=== PATIENT | female | born 1970 | race Caucasian/White ===

== ENCOUNTER 2022-02-24 07:54 | Emergency (ER) | payer OTHER, SELFPAY ==
[2022-02-24 08:06] VITALS: BP 127/86; PULSE 86; RESP 22; TEMP 37; O2SAT 97; BMI 34.8
--- NOTE | 2022-02-24 08:27 | ED.GENADULT ---
HPI - General Adult General Time Seen by Provider: 08:26 Date Seen: 02/24/22 Chief complaint: Shortness of Breath/Dyspnea Stated complaint: +covid Time Seen by Provider: 02/24/22 08:14 Source: patient History of Present Illness HPI narrative: This 51-year-old female comes in with a positive test for COVID that she performed at home. She states that she is having some congestion and cough and feels like it is starting to settle down into her chest. She does not report shortness of breath specifically. She does have a history of sarcoidosis and comes in early on in this condition wanting to avoid any complication that may be forthcoming. She does not report any fevers. Related Data Home Medications Medication Instructions Recorded Confirmed omeprazole 40 mg capsule,delayed mg 02/24/22 release venlafaxine 75 mg capsule,extended mg PO 02/24/22 release 24 hr Previous Rx's Medication Instructions Recorded methylprednisolone 4 mg tablets in 4 mg PO DAILY #21 ea 02/24/22 a dose pack (Medrol (Michael)) Allergies Allergy/AdvReac Type Severity Reaction Status Date / Time Penicillins Allergy Verified 02/24/22 08:12 Review of Systems Status of ROS: Reports: 10 or more systems reviewed and unremarkable except as noted in History and below Narrative: Constitutional: No fevers, no weight gain or loss. Eyes: No discharge. No vision changes. HENT: No congestion, no sore throat, no ear pain. Cardiovascular: No chest pain, no palpitations. Respiratory: Coughing with congestion. No specific shortness of breath. No wheezes. Gastrointestinal: No abdominal pain, no vomiting, no diarrhea. Genitourinary: No dysuria, no hematuria. Musculoskeletal: Normal range of motion. Skin: No rashes, no pruritis. Neurological: No dizziness, weakness, sensory change, speech change. Endo/Heme/Allergies: No bruising or bleeding. No polydipsia. Pysch: no suicidality, no anxiety, no insomnia. All other systems reviewed and are negative. [facility] Medical History (Updated 02/24/22 @ 09:00 by Thanh Ruiz MD) GERD (gastroesophageal reflux disease) Surgical History (Updated 02/24/22 @ 08:15 by Leyda Gilbert RN) History of appendectomy Social History Smoking Status: Never smoker Do you use any of these nicotine containing products: None Second hand tobacco smoke exposure: No How often do you have a drink containing alcohol: 2-4 times a month How many standard drinks containing alcohol do you have on a typical day: 1 or 2 How often do you have six or more drinks on one occasion: Monthly AUDIT-C Alcohol total score: 4 Non-prescribed substance use: denies use service: No Exam Narrative: Exam Narrative: Constitutional: Well-developed, well-nourished, no acute distress. HEENT: Normocephalic, atraumatic. Neck: Normal range of motion. Nontender. Supple. Heart: Regular. No murmurs. Normal rate. Intact distal pulses. Lungs: Clear to auscultation. No chest discomfort. No wheezes, rhonchi, or rales. Abdomen: Normal bowel sounds. Nontender. No rebound tenderness. Genitalia: Deferred. Back: No midline tenderness. Normal range of motion. Extremities: Normal range of motion. No injury. Skin: Intact. No rash. Warm. No erythema or pallor. Neurologic: No altered sensation. No weakness. Alert and oriented. Psychiatric: No suicidality. No anxiety or depression. No insomnia. Nursing notes and vitals signs are reviewed. Const: Vital Signs, click to edit/add: Vital Signs - 24 hr 02/24/22 08:06 Temperature 98.6 F Pulse Rate [Left P ulse Oximeter] 86 Respiratory Rate 22 Blood Pressure [Ri ght Upper Arm] 127/86 Pulse Oximetry 97 Course Vital Signs Vital signs: Initial Vital Signs Temperature 98.6 F 02/24/22 08:06 Temperature Source Temporal Artery Scan 02/24/22 08:06 Pulse Rate 86 02/24/22 08:06 Pulse Rhythm 02/24/22 08:06 Pulse Strength 2+ Slightly Diminished 02/24/22 08:06 Respiratory Rate 22 02/24/22 08:06 Blood Pressure 127/86 02/24/22 08:06 Blood Pressure Mean 99 02/24/22 08:06 Blood Pressure Position Supine 02/24/22 08:06 Pulse Oximetry 97 02/24/22 08:06 Oxygen Delivery Method 02/24/22 08:06 Vital Signs Temperature 98.6 F 07/02/22 08:06 Pulse Rate 86 02/24/22 08:06 Respiratory Rate 22 02/24/22 08:06 Blood Pressure 127/86 02/24/22 08:06 Pulse Oximetry 97 02/24/22 08:06 Temperature 98.6 F 02/24/22 08:06 Pulse Rate 86 02/24/22 08:06 Respiratory Rate 22 02/24/22 08:06 Blood Pressure 127/86 02/24/22 08:06 Pulse Oximetry 97 02/24/22 08:06 Medical Decision Making MDM Narrative Medical decision making narrative: This patient comes in with concern about a positive COVID test with the background of sarcoidosis. She arrives with normal vital signs. I did discuss lab and imaging options with the patient. These were declined in a process of shared decision making. The patient did receive an oral dose of dexamethasone 10 mg. I did also prescribe a Medrol Dosepak and some tablets of Tylenol 3. The patient understands that she should return if becoming short of breath. Discharge Plan Discharge Clinical Impression: COVID-19, Sarcoidosis Patient Disposition: Home, Self-Care Condition: Stable Instructions: COVID-19 (Coronavirus Disease 2019) (ED) Activity Level: Activity as Tolerated Prescriptions: New methylprednisolone [Medrol (Michael)] 4 mg tablets,dose pack 4 mg PO DAILY Qty: 21 0RF No Action venlafaxine 75 mg capsule,extended release 24hr PO 0RF Label Comments: TAKE 1 CAPSULE BY MOUTH EVERY DAY omeprazole 40 mg capsule,delayed release(DR/EC) 0RF Label Comments: TAKE 1 CAPSULE BY MOUTH DAILY. Follow Up/Referrals: Christophe Dye PA-C [Primary Care Provider] - Stand Alone Forms: [employer] Info Instructions
[2022-02-24] MEDS: dexAMETHasone 10 MG/ML inj IV (08:46)
[2022-02-24 09:05] LABS: PCR FLU A NEGATIVE (Negative); PCR FLU B NEGATIVE (Negative); SARS PCR* POSITIVE (Negative)
[2022-02-24 09:14] VITALS: BP 130/81; PULSE 83; RESP 22; TEMP 36.9; O2SAT 97
[2022-02-24 09:27] VITALS: BP 130/81; PULSE 83; RESP 22; TEMP 36.9
--- NOTE | 2022-02-24 10:04 | ED.NURSE ---
pt called and notified of covid/flu results
== END 2022-02-24 09:20 | disposition home or self-care (01) ==
PROVIDERS: Emergency Provider Emergency Medicine Emergency Medical Services; PCP Physician Assistant Medical
DX: U07.1 COVID-19 (principal); D86.9 Sarcoidosis, unspecified
CPT/HCPCS: 87502; 87635; 99283; 99284; J1100

== ENCOUNTER 2022-09-09 05:26 | Emergency (ER) | payer OTHER, SELFPAY ==
[2022-09-09 05:33] VITALS: BP 127/84; PULSE 103; RESP 18; TEMP 36.4; O2SAT 99
--- NOTE | 2022-09-09 05:57 | ED.GENADULT ---
HPI - General Adult General Chief complaint: Diarrhea Stated complaint: Diarrhea Time Seen by Provider: 09/09/22 05:40 History of Present Illness HPI narrative: 51-year-old woman presenting to the emergency department with complaint of colicky abdominal discomfort and bloating. This feels rather full. Has had some gastrointestinal symptoms over the last 2 weeks. Seen in clinic and initiated on a course of prednisone that seems unclear why however when I review records she had presented with some complaint of chest tightness around this time man with history of underlying sarcoidosis, I believe this was white prednisone was initiated. Sirena denies any respiratory symptoms. Says that she has been diagnosed with what sounds like thought of viral stomach bug. Early on more of a vomiting and diarrheal illness which then seemed to resolve. This is now 3rd day of recurrent diarrheal symptoms. She had taken Imodium and seemed to get stopped up and bloated and then restarted with black stools presumably from Pepto-Bismol. 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 Has not had a fever. No hematochezia. Denies IBS history generally. Related Data Home Medications Medication Instructions Recorded Confirmed omeprazole 40 mg capsule,delayed mg PO QDAY 09/04/22 09/04/22 release venlafaxine 75 mg capsule,extended mg PO QDAY 09/04/22 09/04/22 release 24 hr Previous Rx's Medication Instructions Recorded prednisone 20 mg tablet 20 mg PO QDAY 10 days #10 tabs 09/04/22 Allergies Allergy/AdvReac Type Severity Reaction Status Date / Time Penicillins Allergy Verified 09/04/22 07:35 Review of Systems Status of ROS: Reports: 10 or more systems reviewed and unremarkable except as noted in History and below [facility] Medical History GERD (gastroesophageal reflux disease) Surgical History (Updated 02/24/22 @ 08:15 by Leyda Gilbert RN) History of appendectomy Social History Smoking Status: Never smoker Do you use any of these nicotine containing products: None Second hand tobacco smoke exposure: No How often do you have a drink containing alcohol: 2-4 times a month How many standard drinks containing alcohol do you have on a typical day: 1 or 2 How often do you have six or more drinks on one occasion: Monthly AUDIT-C Alcohol total score: 4 Non-prescribed substance use: denies use service: No Exam Narrative: Exam Narrative: Pleasant. Hands are on abdomen as of uncomfortable. Breathing easily though maybe a little splinted that I would associate with what appears to be full abdomen. Lungs are clear. Cranial nerves 2-12 look to be intact. Skin is warm and dry with well-perfused extremities without edema. Abdomen tense with normoactive bowel sounds. Not particularly tender though. No masses. Oropharynx is sticky. Const: Vital Signs, click to edit/add: Vital Signs - 24 hr 09/09/22 05:33 09/09/22 08:00 Temperature 97.6 F Pulse Rate [Left P ulse Oximeter] 103 H 78 Respiratory Rate 18 16 Blood Pressure [Ri ght Upper Arm] 127/84 126/75 Pulse Oximetry 99 100 Oxygen Delivery Me thod Room Air Room Air Documenting provider has reviewed patient's vital signs: yes Course Vital Signs Vital signs: Initial Vital Signs Temperature 97.6 F 09/09/22 05:33 Temperature Source Temporal Artery Scan 09/09/22 05:33 Pulse Rate 103 H 09/09/22 05:33 Pulse Rhythm 09/09/22 05:33 Respiratory Rate 18 09/09/22 05:33 Blood Pressure 127/84 09/09/22 05:33 Blood Pressure Mean 98 09/09/22 05:33 Blood Pressure Position Sitting 09/09/22 05:33 Pulse Oximetry 99 09/09/22 05:33 Oxygen Delivery Method 09/09/22 05:33 Vital Signs Temperature 97.6 F 09/09/22 05:33 Pulse Rate 103 H 09/09/22 05:33 Respiratory Rate 18 09/09/22 05:33 Blood Pressure 127/84 09/09/22 05:33 Pulse Oximetry 99 09/09/22 05:33 Oxygen Delivery Method 09/09/22 05:33 Temperature 97.6 F 09/09/22 05:33 Pulse Rate 78 09/09/22 08:00 Respiratory Rate 16 09/09/22 08:00 Blood Pressure 126/75 09/09/22 08:00 Pulse Oximetry 100 09/09/22 08:00 Oxygen Delivery Method 09/09/22 08:00 Medical Decision Making MDM Narrative Medical decision making narrative: I am hopeful that hydration will be helpful. She is a little tachycardic. Look for red flags in the labs to initiate potentially further imaging. But abdomen is not tender. Will collect stool cultures at least. AST only slightly bumped. No white count elevation. Does not have acute abdomen here. May have a colitis. I think might just be having some trouble getting over diarrheal illness with some residual IBS like symptoms. We did discuss potentially scanning with CT but she is comfortable waiting at this time. Pending stool cultures. Lab Data Labs: Lab Results 09/09/22 09/09/22 09/09/22 Range/Units 06:01 06:02 07:04 WBC 7.96 (4.50-11.00) K/uL RBC 4.61 (4.00-5.20) m/uL Hgb 13.7 (12.0-16.0) gm/dL Hct 39.6 (33.0-51.0) % MCV 86 (80-100) fL MCH 30 (26-34) pg MCHC 35 (32-36) gm/dL RDW Coeff of Suman 12.6 (11.5-15.5) % Plt Count 363 (140-440) K/uL Neut % (Auto) 72.4 H (42.0-72.0) % Lymph % (Auto) 17.2 L (20-44) % [place] % (Auto) 8.4 (0.0-11.0) % Eos % (Auto) 1.6 (0.0-7.0) % Baso % (Auto) 0.3 (0.0-3.0) % Neut # (Auto) 5.80 (1.7-7.0) K/uL Lymph # (Auto) 1.40 (0.90-2.90) K/uL [place] # (Auto) 0.70 (0.00-0.90) K/UL Eos # (Auto) 0.13 (0.00-0.50) K/uL Baso # (Auto) 0.02 (0.00-0.30) K/uL Sodium (135-149) mmol/L Potassium (3.6-5.1) mmol/L Chloride (96-114) mmol/L Carbon Dioxide (20-32) mmol/L BUN (7-30) mg/dL Creatinine (0.5-1.5) mg/dL Estimated GFR ml/min Glucose (60-115) mg/dL Calcium (8.4-10.6) mg/dL Total Bilirubin (0.1-1.5) mg/dL Direct Bilirubin (0.0-0.5) mg/dL AST (12-35) U/L ALT (4-35) U/L Alkaline Phosphatase (40-150) U/L C-Reactive Protein (0.5-1.0) mg/dL Total Protein (6.0-8.3) g/dL Albumin (3.3-5.0) g/dL Lipase (23-300) U/L Urine Color (Yellow) Urine Appearance (Clear) Urine pH (5.0-8.5) Ur Specific [place] (1.000-1.030) Urine Protein (Negative) Urine Glucose (UA) (Negative) Urine Ketones (Negative) Urine Blood (Negative) Urine Nitrite (Negative) Urine Bilirubin (Negative) Urine Urobilinogen (0.2-1.0) Ur Leukocyte Esterase (Negative) Urine RBC (0-2) Urine WBC (0-5) Ur Squamous Epith Cells (None-Few) Calcium Oxalate Crystal (None) Urine Bacteria (None) Stl C.difficile Tox PCR Negative (Negative) St C. diff Tox Epid 027 PRESUMPTIVE NEGATIVE (Negative) SARS-CoV-2 (PCR) Negative SARS-CoV-2 (Negative) Influenza Type A (PCR) Negative PCR FLU A (Negative) Influenza Type B (PCR) Negative PCR FLU B (Negative) 09/09/22 09/09/22 Range/Units 07:04 08:00 WBC (4.50-11.00) K/uL RBC (4.00-5.20) m/uL Hgb (12.0-16.0) gm/dL Hct (33.0-51.0) % MCV (80-100) fL MCH (26-34) pg MCHC (32-36) gm/dL RDW Coeff of Suman (11.5-15.5) % Plt Count (140-440) K/uL Neut % (Auto) (42.0-72.0) % Lymph % (Auto) (20-44) % [place] % (Auto) (0.0-11.0) % Eos % (Auto) (0.0-7.0) % Baso % (Auto) (0.0-3.0) % Neut # (Auto) (1.7-7.0) K/uL Lymph # (Auto) (0.90-2.90) K/uL [place] # (Auto) (0.00-0.90) K/UL Eos # (Auto) (0.00-0.50) K/uL Baso # (Auto) (0.00-0.30) K/uL Sodium 138 (135-149) mmol/L Potassium 3.7 (3.6-5.1) mmol/L Chloride 109 (96-114) mmol/L Carbon Dioxide 23 (20-32) mmol/L BUN 10 (7-30) mg/dL Creatinine 0.6 (0.5-1.5) mg/dL Estimated GFR 107 ml/min Glucose 97 (60-115) mg/dL Calcium 8.4 (8.4-10.6) mg/dL Total Bilirubin 0.5 (0.1-1.5) mg/dL Direct Bilirubin 0.2 (0.0-0.5) mg/dL AST 30 (12-35) U/L ALT 42 H (4-35) U/L Alkaline Phosphatase 95 (40-150) U/L C-Reactive Protein 1.1 H (0.5-1.0) mg/dL Total Protein 7.3 (6.0-8.3) g/dL Albumin 3.9 (3.3-5.0) g/dL Lipase 74 (23-300) U/L Urine Color Yellow (Yellow) Urine Appearance Clear (Clear) Urine pH 5.5 (5.0-8.5) Ur Specific [place] 1.025 (1.000-1.030) Urine Protein Negative (Negative) Urine Glucose (UA) Negative (Negative) Urine Ketones Negative (Negative) Urine Blood Negative (Negative) Urine Nitrite Negative (Negative) Urine Bilirubin Negative (Negative) Urine Urobilinogen 0.2 (0.2-1.0) Ur Leukocyte Esterase Negative (Negative) Urine RBC 0-2 (0-2) Urine WBC 0-2 (0-5) Ur Squamous Epith Cells Few (None-Few) Calcium Oxalate Crystal Few A (None) Urine Bacteria Moderate A (None) Stl C.difficile Tox PCR (Negative) St C. diff Tox Epid 027 (Negative) SARS-CoV-2 (PCR) (Negative) Influenza Type A (PCR) (Negative) Influenza Type B (PCR) (Negative) Discharge Plan Discharge Clinical Impression: Diarrhea, Abdominal bloating Patient Disposition: Home, Self-Care Condition: Stable Additional Instructions: Focus on hydration. Slow advance of diet over the next 24-36 hours. Diluted juices and soup broths to thicker soups and smoothies. Rice. [place]. Consider supplementation with probiotics over the next couple of weeks. Might also try something like Shanna Bio-Gest digestive enzymes. As long as no fever or blood in stool, might try carefully dosed Imodium for diarrhea if necessary. I would make a tentative appointment in Primary Care for sometime in the next 5-7 days to set up next steps in evaluation which might include abdominal imaging or colonoscopy if this continues for another few weeks. Return for marked increase in pain, associated fever, bloody stools. Meanwhile we do have stool cultures pending which might guide further treatment. Continue to take your omeprazole at this time. Prescriptions: No Action prednisone 20 mg tablet 20 mg PO QDAY 10 Days Qty: 10 0RF venlafaxine 75 mg capsule,extended release 24hr PO QDAY Label Comments: TAKE 1 CAPSULE BY MOUTH EVERY DAY omeprazole 40 mg capsule,delayed release(DR/EC) PO QDAY Label Comments: TAKE 1 CAPSULE BY MOUTH DAILY. Follow Up/Referrals: Christophe Dye PA-C [Primary Care Provider] - Stand Alone Forms: [employer] Info Instructions
[2022-09-09] MEDS: HYOSCYAMINE SULFATE 0.125 MG TAB 0.25 MG SUBLINGUAL (06:34)
[2022-09-09] MEDS: 0.9 % SODIUM CHLORIDE 1000 ml 1,000 ML IV (07:10)
[2022-09-09 07:24] LABS: Basophils Absolute Auto 0.02 K/uL (0.00-0.30); Basophils Percent Auto 0.3 % (0.0-3.0); Eosinophils Absolute Auto 0.13 K/uL (0.00-0.50); Eosinophils Percent Auto 1.6 % (0.0-7.0); Hematocrit 39.6 % (33.0-51.0); Hemoglobin* 13.7 gm/dL (12.0-16.0); Immature Granulocytes Abs Auto 0.01 K/uL (0.00-0.30); Immature Granulocytes Pct Auto 0.1 %; Lymphocytes Percent Auto 17.2 % (20-44); Mean Corpuscular HGB Conc 35 gm/dL (32-36); Mean Corpuscular Hemoglobin 30 pg (26-34); Mean Corpuscular Volume 86 fL (80-100); Monocytes Percent Auto 8.4 % (0.0-11.0); Neutrophils Percent Auto 72.4 % (42.0-72.0); Platelet Count* 363 K/uL (140-440); RDW Coefficient of Variation % 12.6 % (11.5-15.5); Red Blood Count 4.61 m/uL (4.00-5.20); White Blood Count* 7.96 K/uL (4.50-11.00)
[2022-09-09 07:30] LABS: Slide Review Reflex No
[2022-09-09 07:45] LABS: Albumin* 3.9 g/dL (3.3-5.0); Chloride* 109 mmol/L (96-114)
[2022-09-09 07:46] LABS: Potassium* 3.7 mmol/L (3.6-5.1); Sodium* 138 mmol/L (135-149)
[2022-09-09 07:48] LABS: Creatinine* 0.6 mg/dL (0.5-1.5); Estimated Glomerular Filt Rate 107 ml/min
[2022-09-09 07:49] LABS: Alanine Aminotransferase* 42 U/L (4-35); Alkaline Phosphatase* 95 U/L (40-150); Aspartate Amino Transferase* 30 U/L (12-35); Bilirubin Direct* 0.2 mg/dL (0.0-0.5); Bilirubin Total* 0.5 mg/dL (0.1-1.5); Blood Urea Nitrogen* 10 mg/dL (7-30); Calcium* 8.4 mg/dL (8.4-10.6); Carbon Dioxide* 23 mmol/L (20-32); Glucose* 97 mg/dL (60-115); Lipase* 74 U/L (23-300); Total Protein* 7.3 g/dL (6.0-8.3)
[2022-09-09 07:51] LABS: C Reactive Protein* 1.1 mg/dL (0.5-1.0)
[2022-09-09 08:00] VITALS: BP 126/75; PULSE 78; RESP 16; O2SAT 100
--- NOTE | 2022-09-09 08:00 | ED.NURSE ---
pt states pain better after getting medications. urine collected and sent to lab.
[2022-09-09 08:05] LABS: PCR FLU A Negative PCR FLU A (Negative); PCR FLU B Negative PCR FLU B (Negative)
[2022-09-09 08:09] LABS: Appearance Urine Clear (Clear); Bilirubin Urine Negative (Negative); Blood Urine Negative (Negative); Color Urine Yellow (Yellow); Glucose Urine Negative (Negative); Ketones Urine Negative (Negative); Leukocyte Esterase Urine Negative (Negative); Nitrite Urine Negative (Negative); Protein Urine Negative (Negative); Specific Gravity Urine 1.025 (1.000-1.030); Urobilinogen Urine 0.2 (0.2-1.0); pH Urine 5.5 (5.0-8.5)
[2022-09-09 08:12] LABS: SARS PCR* Negative SARS-CoV-2 (Negative)
[2022-09-09 08:23] LABS: C.Difficile Negative (Negative); CDIFFEPI 027 PRESUMPTIVE NEGATIVE (Negative)
[2022-09-09 08:28] LABS: Bacteria Urine Moderate; RBC Urine 0-2 (0-2); Squamous Epithelial Cell Urine Few (None-Few); WBC Urine 0-2 (0-5)
[2022-09-09 08:30] LABS: Calcium Oxalate Crystals Urine Few
[2022-09-09] MEDS: MAG HYDROX/ALUMINUM HYD/SIMETH 30 ML ORAL.SUSP PO (09:12)
[2022-09-15 04:46] LABS: Ova and Parasite, Fecal Negative (Negative)
== END 2022-09-09 09:41 | disposition home or self-care (01) ==
PROVIDERS: Emergency Provider Family Medicine; PCP Physician Assistant Medical
DX: R10.9 Unspecified abdominal pain (principal); R19.7 Diarrhea, unspecified
CPT/HCPCS: 36415; 80048; 80076; 81001; 83690; 85025; 86140; 87045; 87046; 87086; 87177; 87209; 87427; 87493; 87631; 99283; 99284; A9270; J7030

== ENCOUNTER 2022-10-11 19:47 | Emergency (ER) | payer OTHER, SELFPAY ==
[2022-10-11 19:56] VITALS: BP 118/85; PULSE 141; RESP 25; TEMP 38.6; O2SAT 95; BMI 34.8
[2022-10-11 20:41] LABS: Strep A DNA Probe* NOT DETECTED (Not Detectd)
[2022-10-11 20:55] LABS: PCR FLU A Negative PCR FLU A (Negative); PCR FLU B Negative PCR FLU B (Negative); PCR RSV Negative PCR RSV (Negative); SARS PCR* Negative SARS-CoV-2 (Negative)
--- NOTE | 2022-10-11 21:15 | ED_ITS ---
HPI - General Adult General Chief complaint: Sore Throat Stated complaint: 104 temp, sore throat Time Seen by Provider: 10/11/22 20:44 Source: patient Mode of arrival: ambulatory History of Present Illness HPI narrative: 51-year-old female with a notable history of sarcoidosis presents with a 4 day history of fever, fatigue lethargy. Has been around her grandchildren who have also been ill with upper respiratory infection symptoms. No and has been tested for any particular illness. She has had 3 of her for COVID vaccines, has done 2 home test for COVID both of which have been negative. She initially started to feel a little bit better yesterday but much worse today. Fever to 104 at home, 101.5 measured here. Has been using some Tylenol and ibuprofen intermittently with no significant improvement in her symptoms. Feels very fatigued, feels like she is now getting dehydrated. Severe sore throat. No other localizing symptoms of infection like cough, ear pain, abdominal pain. She does have some mild dysuria but thinks that is because she is dehydrated. No vaginal discharge or pelvic pain. No skin rashes, abscess or other abnormality. No recent trauma or injury. No recent changes in her medications. No history of sepsis. No IV drug use. Has not tried any other treatments to help with her symptoms. Past medical history notable for sarcoidosis. She takes venlafaxine and omeprazole. Surgical history notable only for appendectomy. Socially no tobacco, no recent alcohol no pertinent travel. Family history notable for respiratory illness in grand children. ROS pertinent for the generalized, HEENT symptoms as described above. Otherwise denies times 12 systems. Related Data Home Medications Medication Instructions Recorded Confirmed venlafaxine 75 mg capsule,extended mg PO QDAY 09/04/22 10/02/22 release 24 hr Previous Rx's Medication Instructions Recorded omeprazole 40 mg capsule,delayed 40 mg PO QDAY #90 caps 09/10/22 release Allergies Allergy/AdvReac Type Severity Reaction Status Date / Time penicillin V Allergy Mild Hives Verified 10/11/22 19:56 Penicillins Allergy Mild Hives Verified 10/11/22 19:56 [facility] Medical History Genital herpes GERD (gastroesophageal reflux disease) GERD without esophagitis History of abnormal cervical Papanicolaou smear Postmenopausal syndrome Sarcoidosis Surgical History History of appendectomy (1986) History of colonoscopy History of removal of cyst History of tubal ligation Family History Father Diabetes High blood pressure High cholesterol Stroke Mother Lymphoma 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 . Nonsmoker. 2-4 alcoholic beverages per week. Does not exercise regularly. No concerns with safety or abuse. Smoking Status: Never smoker Do you use any of these nicotine containing products: None Second hand tobacco smoke exposure: No How often do you have a drink containing alcohol: 2-4 times a month How many standard drinks containing alcohol do you have on a typical day: 1 or 2 How often do you have six or more drinks on one occasion: Monthly AUDIT-C Alcohol total score: 4 Non-prescribed substance use: denies use service: No Exam Const: Vital Signs, click to edit/add: Vital Signs - 24 hr 10/11/22 19:56 Temperature 101.5 F H Pulse Rate [Pulse Oximeter] 141 H Respiratory Rate 25 H Blood Pressure [Ri ght Upper Arm] 118/85 Pulse Oximetry 95 Oxygen Delivery Me thod Room Air Documenting provider has reviewed patient's vital signs: yes Other: Diaphoretic, ill-appearing HENMT: Common normals: normocephalic and TM's normal bilaterally Head and scalp: normocephalic Face and sinus: normal facial exam Tympanic membrane: TM's normal bilaterally Other: Red tonsillar pillars with no blisters. No exudate. Membranes slightly tacky. Normal dentition and tongue. Eye: Common normals: conjunctivae normal General eye: normal appearance of both eyes Conjunctiva: conjunctiva(e) normal Neck & C-Spine: Other: Moderate anterior cervical and submandibular lymphadenopathy. Normal range of motion of neck with no stiffness. Resp: Common normals: normal respiratory effort, no use of accessory muscles and clear to auscultation bilaterally Effort & inspection: able to speak in complete sentences Auscultation: clear to auscultation bilaterally Cardio: Common normals: regular rate, regular rhythm, S1 normal heart sound, S2 normal heart sound, no murmurs and peripheral pulses 2+ throughout Rate: regular rate Rhythm: regular rhythm Heart sounds: S1 normal and S2 normal Peripheral pulses: pulses 2+ throughout GI: Common normals: Normal to inspection, nondistended, normoactive bowel sounds present, soft to palpation, non-tender, no hepatosplenomegaly and no masses Palpation: soft and no hepatosplenomegaly : Common normals: no CVA tenderness Bladder/kidney exam: no CVA tenderness Back & Pelvis: Common normals: no CVA tenderness Extremity: Common normals: full ROM, normal capillary refill and no pedal edema Neuro: Speech: speech normal Gait (neuro): normal gait Motor exam: strength 5/5 throughout, no tremor noted and no movement abnormalities noted Psych: Common normals: speech normal Attitude: engaged Speech: normal speech Mood and affect: euthymic mood Insight: insight good Judgement: judgment good Skin: Common normals: no rashes or lesions noted General skin exam: no rashes or lesions noted Course Vital Signs Vital signs: Initial Vital Signs Temperature 101.5 F H 10/11/22 19:56 Temperature Source Oral 10/11/22 19:56 Pulse Rate 141 H 10/11/22 19:56 Pulse Rhythm Irregularly Irregular 10/11/22 19:56 Respiratory Rate 25 H 10/11/22 19:56 Blood Pressure 118/85 10/11/22 19:56 Blood Pressure Mean 96 10/11/22 19:56 Blood Pressure Position Sitting 10/11/22 19:56 Pulse Oximetry 95 10/11/22 19:56 Oxygen Delivery Method 10/11/22 19:56 Vital Signs Temperature 101.5 F H 10/11/22 19:56 Pulse Rate 141 H 10/11/22 19:56 Respiratory Rate 25 H 10/11/22 19:56 Blood Pressure 118/85 10/11/22 19:56 Pulse Oximetry 95 10/11/22 19:56 Oxygen Delivery Method 10/11/22 19:56 Temperature 101.5 F H 10/11/22 19:56 Pulse Rate 141 H 10/11/22 19:56 Respiratory Rate 25 H 10/11/22 19:56 Blood Pressure 118/85 10/11/22 19:56 Pulse Oximetry 95 10/11/22 19:56 Oxygen Delivery Method 10/11/22 19:56 Medical Decision Making MDM Narrative Medical decision making narrative: COVID, flu, RSV and strep swabs collected while patient in waiting room. These are negative and reviewed with her. She does appear moderately ill. I have recommended a L of fluids, basic blood work, procalcitonin, blood culture, lactate level. We should also test her for mono. She was agreeable to this. Will update once results available. Will also give Toradol 15 mg IV x1 and obtain a UA Update: Patient did feel better after fluids and Toradol. Pulse and respiratory rate improved. Continues to show no signs of hypoxia or localizing infection. Labs are reviewed. Elevated CRP and white count but with normal lactate, prolactin. Swabs all negative. Suspect this is a viral illness. UA is nonsuspicious. Blood cultures are pending. Discussed with patient. She is comfortable with home management. Alarm symptoms reviewed. Continue Tylenol and ibuprofen as needed. Suspect false negative influenza or COVID swabs. Lab Data Lab results reviewed: Yes I reviewed the patient's lab results Labs: Lab Results 10/11/22 10/11/22 10/11/22 Range/Units 20:03 20:03 21:13 WBC (4.50-11.00) K/uL RBC (4.00-5.20) m/uL Hgb (12.0-16.0) gm/dL Hct (33.0-51.0) % MCV (80-100) fL MCH (26-34) pg MCHC (32-36) gm/dL RDW Coeff of Suman (11.5-15.5) % Plt Count (140-440) K/uL Neut % (Auto) (42.0-72.0) % Lymph % (Auto) (20-44) % [place] % (Auto) (0.0-11.0) % Eos % (Auto) (0.0-7.0) % Baso % (Auto) (0.0-3.0) % Neut # (Auto) (1.7-7.0) K/uL Lymph # (Auto) (0.90-2.90) K/uL [place] # (Auto) (0.00-0.90) K/UL Eos # (Auto) (0.00-0.50) K/uL Baso # (Auto) (0.00-0.30) K/uL Sodium (135-149) mmol/L Potassium (3.6-5.1) mmol/L Chloride (96-114) mmol/L Carbon Dioxide (20-32) mmol/L BUN (7-30) mg/dL Creatinine (0.5-1.5) mg/dL Estimated Creat Clear Estimated GFR ml/min Glucose (60-115) mg/dL Lactate (0.5-1.9) mmol/L Calcium (8.4-10.6) mg/dL Total Bilirubin (0.1-1.5) mg/dL AST (12-35) U/L ALT (4-35) U/L Alkaline Phosphatase (40-150) U/L C-Reactive Protein (0.5-1.0) mg/dL Total Protein (6.0-8.3) g/dL Albumin (3.3-5.0) g/dL Procalcitonin (<0.50) ng/mL Urine Color Yellow (Yellow) Urine Appearance Clear (Clear) Urine pH 6.5 (5.0-8.5) Ur Specific [place] 1.015 (1.000-1.030) Urine Protein Negative (Negative) Urine Glucose (UA) Negative (Negative) Urine Ketones Trace A (Negative) Urine Blood Negative (Negative) Urine Nitrite Negative (Negative) Urine Bilirubin Negative (Negative) Urine Urobilinogen 0.2 (0.2-1.0) Ur Leukocyte Esterase Negative (Negative) SARS-CoV-2 (PCR) Negative SARS-CoV-2 (Negative) Monoscreen (Negative) Influenza Type A (PCR) Negative PCR FLU A (Negative) Influenza Type B (PCR) Negative PCR FLU B (Negative) RSV (PCR) Negative PCR RSV (Negative) Group A Strep DNA NOT DETECTED (Not Detectd) 10/11/22 10/11/22 10/11/22 Range/Units 21:25 21:25 21:25 WBC 17.14 H (4.50-11.00) K/uL RBC 4.70 (4.00-5.20) m/uL Hgb 14.0 (12.0-16.0) gm/dL Hct 40.8 (33.0-51.0) % MCV 87 (80-100) fL MCH 30 (26-34) pg MCHC 34 (32-36) gm/dL RDW Coeff of Suman 12.1 (11.5-15.5) % Plt Count 281 (140-440) K/uL Neut % (Auto) 86.7 H (42.0-72.0) % Lymph % (Auto) 4.5 L (20-44) % [place] % (Auto) 8.2 (0.0-11.0) % Eos % (Auto) 0.1 (0.0-7.0) % Baso % (Auto) 0.1 (0.0-3.0) % Neut # (Auto) 14.90 H (1.7-7.0) K/uL Lymph # (Auto) 0.80 L (0.90-2.90) K/uL [place] # (Auto) 1.40 H (0.00-0.90) K/UL Eos # (Auto) 0.00 (0.00-0.50) K/uL Baso # (Auto) 0.00 (0.00-0.30) K/uL Sodium 136 (135-149) mmol/L Potassium 3.8 (3.6-5.1) mmol/L Chloride 105 (96-114) mmol/L Carbon Dioxide 24 (20-32) mmol/L BUN 8 (7-30) mg/dL Creatinine 0.8 (0.5-1.5) mg/dL Estimated Creat Clear 64.32 Estimated GFR 88 ml/min Glucose 118 H (60-115) mg/dL Lactate 0.8 (0.5-1.9) mmol/L Calcium 8.8 (8.4-10.6) mg/dL Total Bilirubin 1.0 (0.1-1.5) mg/dL AST 43 H (12-35) U/L ALT 43 H (4-35) U/L Alkaline Phosphatase 122 (40-150) U/L C-Reactive Protein 8.8 H (0.5-1.0) mg/dL Total Protein 8.3 (6.0-8.3) g/dL Albumin 4.4 (3.3-5.0) g/dL Procalcitonin (<0.50) ng/mL Urine Color (Yellow) Urine Appearance (Clear) Urine pH (5.0-8.5) Ur Specific [place] (1.000-1.030) Urine Protein (Negative) Urine Glucose (UA) (Negative) Urine Ketones (Negative) Urine Blood (Negative) Urine Nitrite (Negative) Urine Bilirubin (Negative) Urine Urobilinogen (0.2-1.0) Ur Leukocyte Esterase (Negative) SARS-CoV-2 (PCR) (Negative) Monoscreen (Negative) Influenza Type A (PCR) (Negative) Influenza Type B (PCR) (Negative) RSV (PCR) (Negative) Group A Strep DNA (Not Detectd) 10/11/22 10/11/22 Range/Units 21:25 21:25 WBC (4.50-11.00) K/uL RBC (4.00-5.20) m/uL Hgb (12.0-16.0) gm/dL Hct (33.0-51.0) % MCV (80-100) fL MCH (26-34) pg MCHC (32-36) gm/dL RDW Coeff of Suman (11.5-15.5) % Plt Count (140-440) K/uL Neut % (Auto) (42.0-72.0) % Lymph % (Auto) (20-44) % [place] % (Auto) (0.0-11.0) % Eos % (Auto) (0.0-7.0) % Baso % (Auto) (0.0-3.0) % Neut # (Auto) (1.7-7.0) K/uL Lymph # (Auto) (0.90-2.90) K/uL [place] # (Auto) (0.00-0.90) K/UL Eos # (Auto) (0.00-0.50) K/uL Baso # (Auto) (0.00-0.30) K/uL Sodium (135-149) mmol/L Potassium (3.6-5.1) mmol/L Chloride (96-114) mmol/L Carbon Dioxide (20-32) mmol/L BUN (7-30) mg/dL Creatinine (0.5-1.5) mg/dL Estimated Creat Clear Estimated GFR ml/min Glucose (60-115) mg/dL Lactate (0.5-1.9) mmol/L Calcium (8.4-10.6) mg/dL Total Bilirubin (0.1-1.5) mg/dL AST (12-35) U/L ALT (4-35) U/L Alkaline Phosphatase (40-150) U/L C-Reactive Protein (0.5-1.0) mg/dL Total Protein (6.0-8.3) g/dL Albumin (3.3-5.0) g/dL Procalcitonin 0.13 (<0.50) ng/mL Urine Color (Yellow) Urine Appearance (Clear) Urine pH (5.0-8.5) Ur Specific [place] (1.000-1.030) Urine Protein (Negative) Urine Glucose (UA) (Negative) Urine Ketones (Negative) Urine Blood (Negative) Urine Nitrite (Negative) Urine Bilirubin (Negative) Urine Urobilinogen (0.2-1.0) Ur Leukocyte Esterase (Negative) SARS-CoV-2 (PCR) (Negative) Monoscreen Negative (Negative) Influenza Type A (PCR) (Negative) Influenza Type B (PCR) (Negative) RSV (PCR) (Negative) Group A Strep DNA (Not Detectd) Discharge Plan Discharge Clinical Impression: Influenza-like illness Patient Disposition: Home w/ Parent or Adult Condition: Improved Instructions: Viral Syndrome (ED) Additional Instructions: Labs show an elevated white count and inflammatory markers but no signs of sepsis, bacterial infection, urine infection or other localizing infection. Swabs for mono, COVID, influenza, RSV and strep are all negative. Chances are, this is a viral infection and very likely is influenza or COVID. Unfortunately false negatives with both of those can be common. Since it is day 5 of symptoms, your not a candidate for antiviral medicine and this would not change our treatment. Continue Tylenol and ibuprofen as we discussed, drinking lots of fluids. If your symptoms get markedly worse, come back to the ED. As I stated, I did collect blood cultures and we will call you if these unexpectedly turn positive. Otherwise, follow up with her primary care provider if your not starting to improve in 5 days. Activity Level: Activity as Tolerated Discharge Diet: Regular Prescriptions: No Action venlafaxine 75 mg capsule,extended release 24hr PO QDAY Label Comments: TAKE 1 CAPSULE BY MOUTH EVERY DAY omeprazole 40 mg capsule,delayed release(DR/EC) 40 mg PO QDAY Qty: 90 0RF Follow Up/Referrals: Christophe Dye PA-C [Primary Care Provider] - Stand Alone Forms: MyHealth Info Instructions
[2022-10-11] MEDS: KETOROLAC 15 MG/ML inj IVP (21:32)
[2022-10-11] MEDS: 0.9 % SODIUM CHLORIDE 1000 ml 1,000 ML IV (21:33)
[2022-10-11 21:38] LABS: Lactate* 0.8 mmol/L (0.5-1.9)
[2022-10-11 21:39] LABS: Basophils Percent Auto 0.1 % (0.0-3.0); Eosinophils Percent Auto 0.1 % (0.0-7.0); Hematocrit 40.8 % (33.0-51.0); Immature Granulocytes Pct Auto 0.4 %; Lymphocytes Percent Auto 4.5 % (20-44); Mean Corpuscular HGB Conc 34 gm/dL (32-36); Mean Corpuscular Hemoglobin 30 pg (26-34); Mean Corpuscular Volume 87 fL (80-100); Monocytes Percent Auto 8.2 % (0.0-11.0); Neutrophils Percent Auto 86.7 % (42.0-72.0); Platelet Count* 281 K/uL (140-440); RDW Coefficient of Variation % 12.1 % (11.5-15.5); White Blood Count* 17.14 K/uL (4.50-11.00)
[2022-10-11 21:48] LABS: Slide Review Reflex No
[2022-10-11 22:05] LABS: Albumin* 4.4 g/dL (3.3-5.0); Chloride* 105 mmol/L (96-114); Potassium* 3.8 mmol/L (3.6-5.1); Sodium* 136 mmol/L (135-149)
[2022-10-11 22:07] LABS: Creatinine* 0.8 mg/dL (0.5-1.5); Est. Creatinine Clearance* 64.32; Estimated Glomerular Filt Rate 88 ml/min
[2022-10-11 22:08] LABS: Alanine Aminotransferase* 43 U/L (4-35); Alkaline Phosphatase* 122 U/L (40-150); Aspartate Amino Transferase* 43 U/L (12-35); Blood Urea Nitrogen* 8 mg/dL (7-30); Carbon Dioxide* 24 mmol/L (20-32); Glucose* 118 mg/dL (60-115); Total Protein* 8.3 g/dL (6.0-8.3)
[2022-10-11 22:09] LABS: Calcium* 8.8 mg/dL (8.4-10.6)
[2022-10-11 22:11] LABS: C Reactive Protein* 8.8 mg/dL (0.5-1.0)
[2022-10-11 22:14] LABS: Mono Screen* Negative (Negative)
[2022-10-11 22:18] LABS: Appearance Urine Clear (Clear); Bilirubin Urine Negative (Negative); Blood Urine Negative (Negative); Color Urine Yellow (Yellow); Glucose Urine Negative (Negative); Ketones Urine Trace (Negative); Leukocyte Esterase Urine Negative (Negative); Nitrite Urine Negative (Negative); Protein Urine Negative (Negative); Specific Gravity Urine 1.015 (1.000-1.030); Urobilinogen Urine 0.2 (0.2-1.0); pH Urine 6.5 (5.0-8.5)
[2022-10-11 22:25] LABS: Procalcitonin* 0.13 ng/mL (<0.50)
== END 2022-10-11 22:57 | disposition home or self-care (01) ==
PROVIDERS: Emergency Provider Family Medicine; PCP Physician Assistant Medical
DX: B34.9 Viral infection, unspecified (principal)
CPT/HCPCS: 36415; 80053; 81003; 83605; 84145; 85025; 86140; 86308; 87040; 87502; 87634; 87635; 87651; 96374; 99283; 99284; J1885; J7030

== ENCOUNTER 2022-10-13 14:58 | Inpatient (IN) | payer OTHER, SELFPAY ==
[2022-10-13] VITALS (24 sets, daily range): BP systolic 93–116; BP diastolic 49–81; PULSE 113–120; RESP 30–40; TEMP 36.8–36.9; O2SAT 87–94; BMI 34.8; BMI 36.6
--- NOTE | 2022-10-13 15:19 | CRLHL7_ITS ---
For Patients: As a result of the Century Cures Act, medical imaging exams and procedure reports are released immediately into your electronic medical record. You may view this report before your referring provider. If you have questions, please contact your health care provider. INDICATION: Chest pain and shortness of breath. TECHNIQUE: CT chest PE was acquired with 95 cc Isovue 370 IV contrast. COMPARISON: None. FINDINGS: Heart and vasculature: Contrast opacification of the pulmonary arterial tree is adequate. No sign of pulmonary embolism. Heart size is normal. Thoracic aorta and pulmonary artery are normal in caliber. Lungs and pleura: Very large dense airspace consolidation in the left upper lobe. Several much smaller patchy infiltrates scattered in both lungs. No pleural effusions, pleural thickening, or pneumothorax. Lymph nodes/mediastinum: No mediastinal, hilar, or axillary adenopathy. Chest wall: No masses. Upper abdomen: No acute or significant findings. Bones: Unremarkable for age. IMPRESSION: 1. No pulmonary embolism. 2. Very large dense left upper lobe pneumonia was smaller patchy areas of pneumonia scattered in both lungs. Please note that all CT scans at this facility use dose modulation, iterative reconstruction, and/or weight-based dosing when appropriate to reduce radiation dose to as low as reasonably achievable. Dictated by Jim Tarqi MD @ 10/13/2022 4:38:53 PM (Electronically Signed)
[2022-10-13 15:44] LABS: Basophils Percent Auto 0.1 % (0.0-3.0); Eosinophils Percent Auto 0.7 % (0.0-7.0); Hematocrit 38.8 % (33.0-51.0); Immature Granulocytes Pct Auto 0.3 %; Lymphocytes Percent Auto 5.5 % (20-44); Mean Corpuscular HGB Conc 34 gm/dL (32-36); Mean Corpuscular Hemoglobin 29 pg (26-34); Mean Corpuscular Volume 88 fL (80-100); Monocytes Percent Auto 3.9 % (0.0-11.0); Neutrophils Percent Auto 89.5 % (42.0-72.0); Platelet Count* 254 K/uL (140-440); RDW Coefficient of Variation % 12.6 % (11.5-15.5); Red Blood Count 4.43 m/uL (4.00-5.20); White Blood Count* 12.28 K/uL (4.50-11.00)
[2022-10-13 15:53] LABS: Slide Review Reflex No
[2022-10-13] MEDS: 0.9 % SODIUM CHLORIDE 1000 ml 1,000 ML IV ×3 (16:00→18:46)
[2022-10-13 16:03] LABS: Lactate* 2.2 mmol/L (0.5-1.9)
[2022-10-13 16:20] LABS: Albumin* 3.6 g/dL (3.3-5.0); Chloride* 102 mmol/L (96-114); Sodium* 133 mmol/L (135-149)
[2022-10-13 16:21] LABS: Potassium* 3.9 mmol/L (3.6-5.1)
[2022-10-13 16:22] LABS: Creatinine* 2.7 mg/dL (0.5-1.5); Est. Creatinine Clearance* 19.06; Estimated Glomerular Filt Rate 20 ml/min
[2022-10-13 16:23] LABS: Alkaline Phosphatase* 106 U/L (40-150); Aspartate Amino Transferase* 31 U/L (12-35); Bilirubin Direct* 0.9 mg/dL (0.0-0.5); Bilirubin Total* 1.2 mg/dL (0.1-1.5); Blood Urea Nitrogen* 28 mg/dL (7-30); Carbon Dioxide* 19 mmol/L (20-32); Total Protein* 7.4 g/dL (6.0-8.3)
[2022-10-13 16:24] LABS: Alanine Aminotransferase* 35 U/L (4-35); Calcium* 8.3 mg/dL (8.4-10.6); Glucose* 89 mg/dL (60-115)
[2022-10-13 16:27] LABS: PCR FLU A Negative PCR FLU A (Negative); PCR FLU B Negative PCR FLU B (Negative); PCR RSV Negative PCR RSV (Negative)
[2022-10-13 16:30] LABS: SARS PCR* Negative SARS-CoV-2 (Negative)
[2022-10-13 16:40] LABS: Troponin I* < 0.01 ng/mL (0.01-0.04)
--- NOTE | 2022-10-13 17:04 | W.PC.EDHO ---
Primary Language: Preferred Language: Orientation Status: [x] Alert & Oriented [] Slight Confusion [] Known Dx Dementia Transfers By: independent [] Assist of 1 [] Assist of 2 [] Lift Active Medications Discontinued Medications Generic Name Dose Route Start Last Admin Trade Name Freq PRN Reason Stop Dose Admin Sodium Chloride 1,000 mls @ 1,000 mls/hr 10/13/22 15:30 10/13/22 16:00 0.9 % Sodium Chloride 1000 Ml IV 10/13/22 16:29 1,000 mls/hr .Q1H [facility] Administration Description of Symptoms ED Triage Present Problem Sick since Saturday. Was seen and everything was Description normal. Fever broke last night and pt feels worse . Having left chest and shoulder pain. Pain hurts with taking a deep breath. Coughing up blood. ED Triage Date of Onset of 10/09/22 Symptoms Female History Patient No Pain Pain Intensity [Generalized] 8 Pain Scale Used [Generalized] Numeric (1 - 10) Oxygen Administration Pulse Oximetry 93 Pulse Oximetry 94 Cardiac Monitoring EKG Method 12 Lead
--- NOTE | 2022-10-13 17:08 | ED.GENADULT ---
HPI - General Adult General Chief complaint: Cough Stated complaint: Spitting up blood Cough Feels Terrible Time Seen by Provider: 10/13/22 15:15 Source: patient Mode of arrival: ambulatory Limitations: no limitations History of Present Illness HPI narrative: 51-year-old female coming in today complaining of not feeling well. Patient was seen 2 days ago with generalized fatigue and weakness at that time was found have an elevated white cell count of 17,000. She states that she has had fever since however she is feeling worse. She complains of left-sided chest pain, productive cough that has blood-tinged sputum, shortness of breath. She has been sick now for approximately 5 days. She denies any sick contacts. No recent traveling. She states that she had a history of a DVT couple months ago and she is no longer on anticoagulation therapy. She does have a history of sarcoidosis. Related Data Home Medications Medication Instructions Recorded Confirmed venlafaxine 75 mg capsule,extended mg PO QDAY 09/04/22 10/02/22 release 24 hr Previous Rx's Medication Instructions Recorded omeprazole 40 mg capsule,delayed 40 mg PO QDAY #90 caps 09/10/22 release Allergies Allergy/AdvReac Type Severity Reaction Status Date / Time penicillin V Allergy Mild Hives Verified 10/11/22 19:56 Penicillins Allergy Mild Hives Verified 10/11/22 19:56 Review of Systems Status of ROS: Reports: 10 or more systems reviewed and unremarkable except as noted in History and below [facility] Medical History Genital herpes GERD (gastroesophageal reflux disease) GERD without esophagitis History of abnormal cervical Papanicolaou smear Postmenopausal syndrome Sarcoidosis Surgical History History of appendectomy (1986) History of colonoscopy History of removal of cyst History of tubal ligation Family History Father Diabetes High blood pressure High cholesterol Stroke Mother Lymphoma 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 . Nonsmoker. 2-4 alcoholic beverages per week. Does not exercise regularly. No concerns with safety or abuse. Smoking Status: Never smoker Do you use any of these nicotine containing products: None Second hand tobacco smoke exposure: No How often do you have a drink containing alcohol: 2-4 times a month How many standard drinks containing alcohol do you have on a typical day: 1 or 2 How often do you have six or more drinks on one occasion: Monthly AUDIT-C Alcohol total score: 4 Non-prescribed substance use: denies use service: No Exam Narrative: Exam Narrative: Well-nourished well-developed patient, very anxious. Alert and oriented x3. Answers questions appropriately. Mood and affect are appropriate. Thoughts are goal oriented and rational. No tangential or magical thinking noted. Patient does need to catch her breath before finishing her sentences. HEENT: Normocephalic atraumatic. Pupils are equally round reactive to light. Extraocular muscles are intact. Conjunctivae are moist without any icterus noted. Moist mucous membranes. Posterior pharynx is normal. Neck is soft without any lymphadenopathy or thyromegaly. No masses are appreciated. Cardiovascular: Heart is tachycardic, S1-S2 present without murmurs appreciated. Lungs: Patient has diffuse rales of the left lung. Right lung is clear. Abdomen: Soft and nontender nondistended with normal bowel sounds. No guarding or rebound. No masses or organomegaly appreciated. Extremities: Bilateral lower extremities are without edema. Normal DP and PT pulses. Skin: Well perfused without any obvious rashes. Const: Vital Signs, click to edit/add: Vital Signs - 24 hr 10/13/22 15:05 10/13/22 15:50 Temperature 98.3 F Pulse Rate [Pulse Oximeter] 117 H Respiratory Rate 38 H Blood Pressure [Ri ght Upper Arm] 103/67 Pulse Oximetry 94 93 Course Course Hospital Course: IV was established and fluids were started right away. Blood draw are revealed her white cell count is decreased from 17,000 that it was two days ago but still elevated at around 12,000. Sodium slightly low 133. Creatinine is increased at 2.7. Lactate is elevated at 2.2. Reevaluation(s) Reevaluation #1: Receive results of patient's CT scan showing a large left upper lobe pneumonia. Patient does fit the criteria for sepsis-2nd L of fluid was started,as well as Zosyn. Did discuss patient's penicillin allergy with her -she states that she had some kind of reaction she was an , unclear exactly what that reaction was. Vital Signs Vital signs: Initial Vital Signs Temperature 98.3 F 10/13/22 15:05 Temperature Source Temporal Artery Scan 10/13/22 15:05 Pulse Rate 117 H 10/13/22 15:05 Respiratory Rate 38 H 10/13/22 15:05 Blood Pressure 103/67 10/13/22 15:05 Blood Pressure Mean 79 10/13/22 15:05 Blood Pressure Position Sitting 10/13/22 15:05 Pulse Oximetry 94 10/13/22 15:05 Vital Signs Temperature 98.3 F 10/13/22 15:05 Pulse Rate 117 H 10/13/22 15:05 Respiratory Rate 38 H 10/13/22 15:05 Blood Pressure 103/67 10/13/22 15:05 Pulse Oximetry 94 10/13/22 15:05 Temperature 98.3 F 10/13/22 15:05 Pulse Rate 117 H 10/13/22 15:05 Respiratory Rate 38 H 10/13/22 15:05 Blood Pressure 103/67 10/13/22 15:05 Pulse Oximetry 93 10/13/22 15:50 Medical Decision Making MDM Narrative Medical decision making narrative: 51-year-old female with pneumonia, sepsis. Patient will be admitted for further management. Medical Records Medical records reviewed: Yes I reviewed the patient's medical records Lab Data Lab results reviewed: Yes I reviewed the patient's lab results Labs: Lab Results 10/13/22 10/13/22 10/13/22 Range/Units 15:35 15:35 15:35 WBC 12.28 H (4.50-11.00) K/uL RBC 4.43 (4.00-5.20) m/uL Hgb 13.0 (12.0-16.0) gm/dL Hct 38.8 (33.0-51.0) % MCV 88 (80-100) fL MCH 29 (26-34) pg MCHC 34 (32-36) gm/dL RDW Coeff of Suman 12.6 (11.5-15.5) % Plt Count 254 (140-440) K/uL Neut % (Auto) 89.5 H (42.0-72.0) % Lymph % (Auto) 5.5 L (20-44) % [place] % (Auto) 3.9 (0.0-11.0) % Eos % (Auto) 0.7 (0.0-7.0) % Baso % (Auto) 0.1 (0.0-3.0) % Neut # (Auto) 11.00 H (1.7-7.0) K/uL Lymph # (Auto) 0.70 L (0.90-2.90) K/uL [place] # (Auto) 0.50 (0.00-0.90) K/UL Eos # (Auto) 0.10 (0.00-0.50) K/uL Baso # (Auto) 0.00 (0.00-0.30) K/uL Sodium 133 L (135-149) mmol/L Potassium 3.9 (3.6-5.1) mmol/L Chloride 102 (96-114) mmol/L Carbon Dioxide 19 L (20-32) mmol/L BUN 28 (7-30) mg/dL Creatinine 2.7 H (0.5-1.5) mg/dL Estimated Creat Clear 19.06 Estimated GFR 20 ml/min Glucose 89 (60-115) mg/dL Lactate 2.2 H (0.5-1.9) mmol/L Calcium 8.3 L (8.4-10.6) mg/dL Total Bilirubin 1.2 (0.1-1.5) mg/dL Direct Bilirubin 0.9 H (0.0-0.5) mg/dL AST 31 (12-35) U/L ALT 35 (4-35) U/L Alkaline Phosphatase 106 (40-150) U/L Troponin I (0.01-0.04) ng/mL Total Protein 7.4 (6.0-8.3) g/dL Albumin 3.6 (3.3-5.0) g/dL SARS-CoV-2 (PCR) (Negative) Influenza Type A (PCR) (Negative) Influenza Type B (PCR) (Negative) RSV (PCR) (Negative) 10/13/22 10/13/22 Range/Units 15:35 15:35 WBC (4.50-11.00) K/uL RBC (4.00-5.20) m/uL Hgb (12.0-16.0) gm/dL Hct (33.0-51.0) % MCV (80-100) fL MCH (26-34) pg MCHC (32-36) gm/dL RDW Coeff of Suman (11.5-15.5) % Plt Count (140-440) K/uL Neut % (Auto) (42.0-72.0) % Lymph % (Auto) (20-44) % [place] % (Auto) (0.0-11.0) % Eos % (Auto) (0.0-7.0) % Baso % (Auto) (0.0-3.0) % Neut # (Auto) (1.7-7.0) K/uL Lymph # (Auto) (0.90-2.90) K/uL [place] # (Auto) (0.00-0.90) K/UL Eos # (Auto) (0.00-0.50) K/uL Baso # (Auto) (0.00-0.30) K/uL Sodium (135-149) mmol/L Potassium (3.6-5.1) mmol/L Chloride (96-114) mmol/L Carbon Dioxide (20-32) mmol/L BUN (7-30) mg/dL Creatinine (0.5-1.5) mg/dL Estimated Creat Clear Estimated GFR ml/min Glucose (60-115) mg/dL Lactate (0.5-1.9) mmol/L Calcium (8.4-10.6) mg/dL Total Bilirubin (0.1-1.5) mg/dL Direct Bilirubin (0.0-0.5) mg/dL AST (12-35) U/L ALT (4-35) U/L Alkaline Phosphatase (40-150) U/L Troponin I < 0.01 L (0.01-0.04) ng/mL Total Protein (6.0-8.3) g/dL Albumin (3.3-5.0) g/dL SARS-CoV-2 (PCR) Negative SARS-CoV-2 (Negative) Influenza Type A (PCR) Negative PCR FLU A (Negative) Influenza Type B (PCR) Negative PCR FLU B (Negative) RSV (PCR) Negative PCR RSV (Negative) Imaging Data CT scan - chest: Attestation: I have reviewed the pertinent imaging results. Radiologist's impression: Chest pain and shortness of breath. TECHNIQUE: CT chest PE was acquired with 95 cc Isovue 370 IV contrast. COMPARISON: None. FINDINGS: Heart and vasculature: Contrast opacification of the pulmonary arterial tree is adequate. No sign of pulmonary embolism. Heart size is normal. Thoracic aorta and pulmonary artery are normal in caliber. Lungs and pleura: Very large dense airspace consolidation in the left upper lobe. Several much smaller patchy infiltrates scattered in both lungs. No pleural effusions, pleural thickening, or pneumothorax. Lymph nodes/mediastinum: No mediastinal, hilar, or axillary adenopathy. Chest wall: No masses. Upper abdomen: No acute or significant findings. Bones: Unremarkable for age. IMPRESSION: 1. No pulmonary embolism. 2. Very large dense left upper lobe pneumonia was smaller patchy areas of pneumonia scattered in both lungs. ECG Data Attestation: I personally reviewed and interpreted this ECG as follows: (Sinus tachycardia, pulse 115) Critical Care Time Critical Care Time Critical Care Time: Yes Attestation: The patient required my highest level preparedness to intervene emergently and I personally spent this critical care time directly and personally managing the patient. This critical care time included: Obtaining a history; Examining the patient; Pulse oximetry; Ordering and reviewing of studies; Arranging urgent treatment with development of a management plan; Evaluation of patients response to treatment; Frequent reassessment discussions with other providers. This critical care time was performed to assess and manage the high probability of imminent life-threatening deterioration that could result in multiorgan failure. It was exclusive of separate billable procedures and treating other patients and teaching time. Total Critical Care Time in Minutes: 60 Discharge Plan Discharge Clinical Impression: Sepsis, Pneumonia Patient Disposition: Admitted As Inpatient Prescriptions: No Action venlafaxine 75 mg capsule,extended release 24hr PO QDAY Label Comments: TAKE 1 CAPSULE BY MOUTH EVERY DAY omeprazole 40 mg capsule,delayed release(DR/EC) 40 mg PO QDAY Qty: 90 0RF Follow Up/Referrals: Christophe Dye PA-C [Primary Care Provider] -
[2022-10-13 17:17] LABS: C Reactive Protein* 61.9 mg/dL (0.5-1.0)
[2022-10-13] MEDS: PIPERACILLIN/TAZOBACTAM 3.375 GM in 0.9 % SODIUM CHLORIDE Mini-bag 100 ML IVPB (17:45)
--- NOTE | 2022-10-13 17:45 | ED.NURSE ---
Pt reports a reaction to penicillin as a child, per both Dr. Gerber and Dr. Parker do admin zosyn. Zosyn started when blood cultures drawn, difficult draw by lab.
--- NOTE | 2022-10-13 18:37 | P.IMHP_ITS ---
Hospitalist- H&P: HPI History of Present Illness Time Seen by Provider: 18:37 Date Seen: 10/13/22 Chief complaint: Spitting up blood Cough Feels Terrible Narrative: Sirena Mendez is a 51 year old female with a history of pulmonary sarcoidosis who started feeling sick this past Saturday with fevers, chills, and body aches. She went to the emergency department on with a fever and a sore throat and was diagnosed with a viral syndrome. She started having hemoptysis that day and felt like her breathing was getting faster. Since she has been feeling worse and worse. She has been getting short of breath and notices that her breathing is faster even when she is just resting in bed. She took a shower today but had to cut it short because of shortness of breath and lightheadedness. She is feeling better now on oxygen. Last night she had night sweats several times and had to change her clothes 6 times overnight. She has a pain under her left breast and in her shoulder with deep breaths or coughing. She has a history of sarcoidosis diagnosed in 2007 at [facility]. She has not followed up much for this. A few years back she transferred care to [facility] pulmonology clinic near the [facility], but she is told that there out of business now and has not been to see a oval or circular glass cutter for sarcoidosis since then. She did have a sleep study at the end of last year at [facility] in [place], but does not know the results because she did not follow-up for that either. She has a lot of daytime sleepiness and fatigue and her notes that she snores a lot. Review of Systems Status of ROS: Reports: 10 or more systems reviewed and unremarkable except as noted in History and below Narrative: Penicillin allergy: She was told she had hives from it as a baby. [facility] Medical History (Updated 10/13/22 @ 19:38 by Kourtney Parker MD) COVID-19 Enlargement of lymph nodes Genital herpes GERD without esophagitis History of abnormal cervical Papanicolaou smear Postmenopausal syndrome Right leg DVT Sarcoidosis JEROMY (stress urinary incontinence, female) Surgical History (Updated 10/13/22 @ 18:00 by Kourtney Parker MD) History of appendectomy (1986) History of bronchoscopy (12/22/07) History of colonoscopy History of removal of cyst History of tubal ligation Family History (Updated 10/13/22 @ 18:07 by Kourtney Parker MD) Father Diabetes High blood pressure High cholesterol Stroke Mother Lymphoma High cholesterol Brother High cholesterol Grandmother Diabetes Maternal Grandmother No problems noted. 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 . Nonsmoker. 2-4 alcoholic beverages every other week. No recreational drugs. Does not exercise regularly. No concerns with safety or abuse. Smoking Status: Never smoker Do you use any of these nicotine containing products: None Second hand tobacco smoke exposure: No How often do you have a drink containing alcohol: 2-4 times a month How many standard drinks containing alcohol do you have on a typical day: 1 or 2 How often do you have six or more drinks on one occasion: Monthly AUDIT-C Alcohol total score: 4 Non-prescribed substance use: denies use service: No Meds Home Medications and Allergies Home Medications Medication Instructions Recorded Confirmed Type venlafaxine 75 mg capsule,extended 75 mg PO QDAY 09/04/22 10/13/22 History release 24 hr Allergies Allergy/AdvReac Type Severity Reaction Status Date / Time penicillin V Allergy Mild Hives Verified 10/11/22 19:56 Penicillins Allergy Mild Hives Verified 10/11/22 19:56 Exam Narrative: Exam Narrative: General: Affect bright and attentive, but appears ill with rapid shallow breathing. Takes a breath in the middle of sentences. Occasional ineffective coughing with hemoptysis. Awake alert oriented x3. HEENT: Normocephalic atraumatic, pupils equally round and reactive to light and accommodation. Oropharynx clear. Mucous membranes are dry. No cervical lymphadenopathy, thyromegaly or carotid bruits. No JVD. Cardiovascular: Tachycardic, regular. No murmurs, gallops, or rubs. Chest: Tachypneic. Rales and egophony of the left lung field especially superiorly. Abdomen: Bowel sounds present. Soft, nondistended, nontender. No hepatosplenomegaly or masses. Extremities: No edema, no cyanosis or clubbing. Good capillary refill. No mottling. Skin: No jaundice, no pallor, no rashes. Const: Vital Signs, click to edit/add: Vital Signs - 24 hr 10/13/22 15:05 10/13/22 15:50 10/13/22 15:16 Temperature 98.3 F Pulse Rate 120 H Pulse Rate [Left R adial] Pulse Rate [Pulse Oximeter] 117 H Respiratory Rate 38 H Blood Pressure Blood Pressure [Le ft Arm] Blood Pressure [Ri ght Upper Arm] 103/67 Pulse Oximetry 94 93 92 Oxygen Delivery Me thod Oxygen Flow Rate 10/13/22 15:21 10/13/22 15:30 10/13/22 15:49 Temperature Pulse Rate 117 H 116 H 117 H Pulse Rate [Left R adial] Pulse Rate [Pulse Oximeter] Respiratory Rate Blood Pressure Blood Pressure [Le ft Arm] Blood Pressure [Ri ght Upper Arm] Pulse Oximetry 93 91 92 Oxygen Delivery Me thod Oxygen Flow Rate 10/13/22 15:59 10/13/22 16:00 10/13/22 16:02 Temperature Pulse Rate 115 H 114 H 114 H Pulse Rate [Left R adial] Pulse Rate [Pulse Oximeter] Respiratory Rate Blood Pressure 111/70 116/49 L Blood Pressure [Le ft Arm] Blood Pressure [Ri ght Upper Arm] Pulse Oximetry 93 93 93 Oxygen Delivery Me thod Oxygen Flow Rate 10/13/22 16:15 10/13/22 16:30 10/13/22 16:32 Temperature Pulse Rate 113 H 114 H 114 H Pulse Rate [Left R adial] Pulse Rate [Pulse Oximeter] Respiratory Rate Blood Pressure 93/63 Blood Pressure [Le ft Arm] Blood Pressure [Ri ght Upper Arm] Pulse Oximetry 92 94 94 Oxygen Delivery Me thod Oxygen Flow Rate 10/13/22 16:45 10/13/22 17:00 10/13/22 17:01 Temperature Pulse Rate 116 H 118 H 115 H Pulse Rate [Left R adial] Pulse Rate [Pulse Oximeter] Respiratory Rate Blood Pressure 110/78 Blood Pressure [Le ft Arm] Blood Pressure [Ri ght Upper Arm] Pulse Oximetry 93 93 93 Oxygen Delivery Me thod Oxygen Flow Rate 10/13/22 17:15 10/13/22 17:30 10/13/22 17:59 Temperature Pulse Rate 114 H 116 H Pulse Rate [Left R adial] Pulse Rate [Pulse Oximeter] Respiratory Rate Blood Pressure Blood Pressure [Le ft Arm] Blood Pressure [Ri ght Upper Arm] Pulse Oximetry 93 91 87 L Oxygen Delivery Me thod Oxygen Flow Rate 10/13/22 18:08 10/13/22 18:16 10/13/22 17:59 Temperature 98.3 F Pulse Rate 116 H Pulse Rate [Left R adial] 120 H Pulse Rate [Pulse Oximeter] Respiratory Rate 40 H Blood Pressure Blood Pressure [Le ft Arm] 113/81 Blood Pressure [Ri ght Upper Arm] Pulse Oximetry 92 87 L Oxygen Delivery Me thod Nasal Cannula Room Air Oxygen Flow Rate 2 Documenting provider has reviewed patient's vital signs: yes Hospitalist - H&P: Result Labs Labs: Short CBC 10/13/22 Range/Units 15:35 WBC 12.28 H (4.50-11.00) K/uL Hgb 13.0 (12.0-16.0) gm/dL Hct 38.8 (33.0-51.0) % Plt Count 254 (140-440) K/uL BMP 10/13/22 15:35 Sodium 133 L Potassium 3.9 Chloride 102 Carbon Dioxide 19 L BUN 28 Creatinine 2.7 H Glucose 89 Calcium 8.3 L Cardiac Enzymes 10/13/22 Range/Units 15:35 Troponin I < 0.01 L (0.01-0.04) ng/mL Liver Function 10/13/22 Range/Units 15:35 Total Bilirubin 1.2 (0.1-1.5) mg/dL Direct Bilirubin 0.9 H (0.0-0.5) mg/dL AST 31 (12-35) U/L ALT 35 (4-35) U/L Alkaline Phosphatase 106 (40-150) U/L Albumin 3.6 (3.3-5.0) g/dL 10/13/2022 3:51 p.m. EKG: Sinus tachycardia, 115 beats per minute. Ordering Physician: Monica Gerber M.D. Date of Service: 10/13/22 Procedure(s): CT angio chest PE protocol Accession Number(s): [id number] cc: Monica Gerber M.D.; Christophe Dye PA-C~ For Patients: As a result of the Cures Act, medical imaging exams and procedure reports are released immediately into your electronic medical record. You may view this report before your referring provider. If you have questions, please contact your health care provider. INDICATION: Chest pain and shortness of breath. TECHNIQUE: CT chest PE was acquired with 95 cc Isovue 370 IV contrast. COMPARISON: None. FINDINGS: Heart and vasculature: Contrast opacification of the pulmonary arterial tree is adequate. No sign of pulmonary embolism. Heart size is normal. Thoracic aorta and pulmonary artery are normal in caliber. Lungs and pleura: Very large dense airspace consolidation in the left upper lobe. Several much smaller patchy infiltrates scattered in both lungs. No pleural effusions, pleural thickening, or pneumothorax. Lymph nodes/mediastinum: No mediastinal, hilar, or axillary adenopathy. Chest wall: No masses. Upper abdomen: No acute or significant findings. Bones: Unremarkable for age. IMPRESSION: 1. No pulmonary embolism. 2. Very large dense left upper lobe pneumonia was smaller patchy areas of pneumonia scattered in both lungs. Please note that all CT scans at this facility use dose modulation, iterative reconstruction, and/or weight-based dosing when appropriate to reduce radiation dose to as low as reasonably achievable. Dictated by Jim Tariq MD @ 10/13/2022 4:38:53 PM (Electronically Signed) Assessment and Plan Assessment and plan (1) Sepsis: Status: Acute (2) Acute hypoxemic respiratory failure: Status: Acute (3) Pneumonia: Status: Acute (4) Acute renal failure: Problem comment: baseline Cr is 0.7-0.8. Status: Acute (5) Dehydration: Status: Acute (6) Sarcoidosis: Problem comment: Diagnosis at [place]. Saw neurology and pulmonary upon diagnosis. Status: Chronic (7) Pleuritic chest pain: Status: Acute Plan 51-year-old female with a history of pulmonary sarcoidosis with acute respiratory failure, pleuritic chest pain, and sepsis secondary to community- acquired pneumonia. No evidence of septic shock. She is also dehydrated and has acute renal failure secondary to that. Admit to the hospital for IV antibiotics. Will start was Zosyn due to severe sepsis (WBC >12, HR >90, RR > 20, lactate >2, Cr >2). Obtain sputum culture, start vibratory pep, and nebulizers. She got 2 L of IV normal saline in the emergency department. Clinically she still appears hypovolemic, although her lactate has normalized. Will give her a third L of normal saline tonight. Encouraged her to drink water. Recheck labs in the morning. I have also added a procalcitonin on to the labs done this evening and will recheck in the morning. Due to history of sarcoidosis, I will also add prednisone 20 mg daily. She had a right lower extremity DVT about 6 months ago which was treated with Eliquis. This was after a bilateral lower extremity vein procedure. She has not had any other history of VTE. Due to significant dyspnea on exertion, she will likely be mostly in bed for the next day or so. Since she is having hemoptysis however I will hold off on pharmacologic prophylaxis. If the hemoptysis has improved by tomorrow, could consider starting low-dose nightly Lovenox for VTE prophylaxis. In the meantime I will start her on Marquis's hose and SCDs.
[2022-10-13 18:52] LABS: Lactate* 1.9 mmol/L (0.5-1.9)
[2022-10-13] MEDS: predniSONE 20 MG TABLET PO (19:38)
[2022-10-13] MEDS: ACETAMINOPHEN 325 MG TABLET 650 MG PO (19:58)
[2022-10-13] MEDS: ALBUTEROL SULFATE 2.5 MG/3 ML VIAL.NEB NEB (20:59)
[2022-10-14] VITALS (9 sets, daily range): BP systolic 93–119; BP diastolic 47–65; PULSE 99–113; RESP 18–32; TEMP 36.6–37.3; O2SAT 92–96
[2022-10-14] MEDS: PIPERACILLIN/TAZOBACTAM 3.375 GM in 0.9 % SODIUM CHLORIDE Mini-bag 100 ML IVPB ×4 (00:12→18:29)
[2022-10-14] MEDS: 0.9 % SODIUM CHLORIDE 250 ml IV (00:18)
[2022-10-14] MEDS: OMEPRAZOLE 20 MG CAPSULE DR 40 MG PO (06:30)
--- NOTE | 2022-10-14 06:55 | PC.NURSE ---
Shift note: increased anxiety level in PM, pt has had hard time catching her breath, O2 sats 95-98%, productive cough. Tylenol and Albuterol administered, pt was able to rest some time overnight, she is smiling and is more talkative this morning.
[2022-10-14 07:07] LABS: Eosinophils Percent Auto 0.1 % (0.0-7.0); Hematocrit 35.2 % (33.0-51.0); Hemoglobin* 11.7 gm/dL (12.0-16.0); Immature Granulocytes Pct Auto 0.8 %; Mean Corpuscular HGB Conc 33 gm/dL (32-36); Mean Corpuscular Hemoglobin 29 pg (26-34); Mean Corpuscular Volume 88 fL (80-100); Monocytes Percent Auto 3.9 % (0.0-11.0); Neutrophils Percent Auto 91.2 % (42.0-72.0); Platelet Count* 260 K/uL (140-440); RDW Coefficient of Variation % 13.1 % (11.5-15.5); Red Blood Count 3.99 m/uL (4.00-5.20); White Blood Count* 15.87 K/uL (4.50-11.00)
[2022-10-14 07:15] LABS: Chloride* 109 mmol/L (96-114)
[2022-10-14 07:16] LABS: Potassium* 3.9 mmol/L (3.6-5.1); Sodium* 139 mmol/L (135-149)
[2022-10-14 07:18] LABS: Creatinine* 1.5 mg/dL (0.5-1.5); Estimated Glomerular Filt Rate 41 ml/min
[2022-10-14 07:19] LABS: Blood Urea Nitrogen* 24 mg/dL (7-30); Calcium* 8.1 mg/dL (8.4-10.6); Carbon Dioxide* 21 mmol/L (20-32); Glucose* 95 mg/dL (60-115)
[2022-10-14 07:43] LABS: Slide Review Reflex Yes
[2022-10-14 07:44] LABS: Slide Review Acceptable Review (Acceptable)
[2022-10-14 08:04] LABS: C Reactive Protein* 59.9 mg/dL (0.5-1.0)
[2022-10-14] MEDS: predniSONE 20 MG TABLET PO (08:23)
[2022-10-14] MEDS: VENLAFAXINE ER 75 MG CAPSULE PO (08:23)
[2022-10-14] MEDS: ALBUTEROL SULFATE 2.5 MG/3 ML VIAL.NEB NEB ×2 (08:24→19:52)
[2022-10-14] MEDS: SODIUM CHLORIDE 0.9 % (FLUSH) 10 ML SYRINGE 5 ML IVF (08:24)
--- NOTE | 2022-10-14 11:10 | RESP.RT ---
Patient sitting up in bed, resting comfortably. On room air, respiratory rate 22/minute, breathing regular/easy, SaO2 93%. Patient has good forceful productive cough, Splints Left side when coughs. BBS with fine crackles noted all mullins, Left upper lobe slight diminished over other mullins, Right lower lobe has end expiratory short wheeze noted. Chest CT; Very large dense left upper lobe pneumonia was smaller patchy areas of pneumonia scattered in both lungs. Discussed with Dr. Henson, benefits of PEP therapy to assist in secretion mobilization and lung recruitment. Aerobika instruction, demonstration with patient. Good effort, slight chest shake, productive cough promoted, blood tinged secretions. Had patient feel chest during good effort exhalation to feel chest shake to help understand use of Aerobika. Patient states verbally understanding. Patient will self administer Aerobika use with encouragement from RT and Nursing.
[2022-10-14] MEDS: ACETAMINOPHEN 325 MG TABLET 650 MG PO (12:23)
--- NOTE | 2022-10-14 15:12 | P.IMPN_ITS ---
Progress Note: A&P Assessment and plan (1) Sepsis: Problem details: Sepsis due to pneumonia with bacteremia. Clinically improving on Zosyn. Add vancomycin pending cultures Status: Acute (2) Acute hypoxemic respiratory failure: Problem details: Due to pneumonia with bacteremia. Continue Zosyn. Add vancomycin. Oxygen as knee Status: Acute (3) Pneumonia: Problem details: Left upper lobe. Concerning history of sarcoid. Will definitely need outpatient follow-up for reimaging and reassessment of sarcoid Status: Acute (4) Acute renal failure: Problem details: baseline Cr is 0.7-0.8. Creatinine 2.7 on admission and 1.5 today. Continue to trend. Status: Acute (5) Dehydration: Problem details: Due to acute illness. Improved with IV fluids Status: Acute (6) Sarcoidosis: Problem details: Prednisone 20 mg daily for now pending clinical course. Diagnosis at [place]. Saw neurology and pulmonary upon diagnosis. Needs outpatient follow-up Status: Chronic (7) Pleuritic chest pain: Problem details: Due to pneumonia. Improved Status: Acute (8) Sleep apnea: Status: Acute Plan Continue dual antibiotic coverage pending ID and sensitivity. With bacteremia will need ongoing outpatient antibiotic therapy and close follow-up. Outpatient pulmonary follow-up also indicated. Time Spent With Patient Total time spent: Total time spent today is 50 minutes, 30 minutes in coordination of care discussing with patient other providers ongoing evaluation management of bacteremia and pneumonia in the context of sarcoid Subjective Date Seen: 10/14/22 Interval history: Patient seen in followup of hospitalization for left upper lobe pneumonia with hypoxic respiratory failure and sepsis. Patient 1st became ill about 6 days ago. Evaluated emergency department 3 days ago with suspected viral illness. Continue to get worse with fever chills dyspnea and left shoulder and left chest pain. CT yesterday showed a large dense left upper lobe infiltrate. Subsequently her for blood cultures have turned positive. Patient reports feeling much better today. She feels like her breathing is better her chest pain is better and she feels stronger. Previous history of sarcoidosis noted. She has not been on treatment for that or under care of a lead generation specialist. She did see a lead generation specialist in [place] and considered getting follow-up there in the future. She also saw that lead generation specialist about sleep apnea. She has not had follow-up of that either. She had a severe diarrheal illness at the beginning of August. That has resolved. Exam Narrative: Exam Narrative: She is alert and appears in no obvious distress using supplemental oxygen. Eyes normal. Oropharynx with small airway. Neck is supple without mass or adenopathy. Respirations are clear to auscultation on the right and few crackles and diminished breath sounds in the mid back and lateral lung mullins and anterior upper lung mullins on the left. Cardiovascular: S1, S2, regular tachycardia. Abdomen is soft without tenderness or mass. Extremities without edema. Const: Vital Signs, click to edit/add: Vital Signs - 24 hr 10/13/22 15:50 10/13/22 15:16 10/13/22 15:21 Temperature Pulse Rate 120 H 117 H Pulse Rate [Left A pical] Pulse Rate [Left R adial] Respiratory Rate Blood Pressure Blood Pressure [Le ft Arm] Pulse Oximetry 93 92 93 Oxygen Delivery Me thod Oxygen Flow Rate 10/13/22 15:30 10/13/22 15:49 10/13/22 15:59 Temperature Pulse Rate 116 H 117 H 115 H Pulse Rate [Left A pical] Pulse Rate [Left R adial] Respiratory Rate Blood Pressure 111/70 Blood Pressure [Le ft Arm] Pulse Oximetry 91 92 93 Oxygen Delivery Me thod Oxygen Flow Rate 10/13/22 16:00 10/13/22 16:02 10/13/22 16:15 Temperature Pulse Rate 114 H 114 H 113 H Pulse Rate [Left A pical] Pulse Rate [Left R adial] Respiratory Rate Blood Pressure 116/49 L Blood Pressure [Le ft Arm] Pulse Oximetry 93 93 92 Oxygen Delivery Me thod Oxygen Flow Rate 10/13/22 16:30 10/13/22 16:32 10/13/22 16:45 Temperature Pulse Rate 114 H 114 H 116 H Pulse Rate [Left A pical] Pulse Rate [Left R adial] Respiratory Rate Blood Pressure 93/63 Blood Pressure [Le ft Arm] Pulse Oximetry 94 94 93 Oxygen Delivery Me thod Oxygen Flow Rate 10/13/22 17:00 10/13/22 17:01 10/13/22 17:15 Temperature Pulse Rate 118 H 115 H 114 H Pulse Rate [Left A pical] Pulse Rate [Left R adial] Respiratory Rate Blood Pressure 110/78 Blood Pressure [Le ft Arm] Pulse Oximetry 93 93 93 Oxygen Delivery Me thod Oxygen Flow Rate 10/13/22 17:30 10/13/22 17:59 10/13/22 18:08 Temperature Pulse Rate 116 H 116 H Pulse Rate [Left A pical] Pulse Rate [Left R adial] Respiratory Rate Blood Pressure Blood Pressure [Le ft Arm] Pulse Oximetry 91 87 L Oxygen Delivery Me thod Oxygen Flow Rate 10/13/22 18:16 10/13/22 17:59 10/13/22 20:24 Temperature 98.3 F Pulse Rate Pulse Rate [Left A pical] Pulse Rate [Left R adial] 120 H Respiratory Rate 40 H 30 H Blood Pressure Blood Pressure [Le ft Arm] 113/81 Pulse Oximetry 92 87 L Oxygen Delivery Me thod Nasal Cannula Room Air Nasal Cannula Oxygen Flow Rate 2 2 10/13/22 20:41 10/13/22 21:08 10/13/22 23:00 Temperature Pulse Rate 116 H Pulse Rate [Left A pical] Pulse Rate [Left R adial] Respiratory Rate 30 H 32 H Blood Pressure Blood Pressure [Le ft Arm] Pulse Oximetry 92 92 Oxygen Delivery Me thod Nasal Cannula Nasal Cannula Oxygen Flow Rate 2 2 10/13/22 23:00 10/13/22 23:00 10/13/22 23:00 Temperature Pulse Rate Pulse Rate [Left A pical] Pulse Rate [Left R adial] 120 H Respiratory Rate 32 H 32 H Blood Pressure Blood Pressure [Le ft Arm] Pulse Oximetry 92 92 Oxygen Delivery Me thod Nasal Cannula Oxygen Flow Rate 2 10/13/22 23:00 10/14/22 03:00 10/14/22 07:00 Temperature 98.4 F 97.9 F Pulse Rate 113 H Pulse Rate [Left A pical] Pulse Rate [Left R adial] 116 H 113 H Respiratory Rate 32 H 32 H Blood Pressure Blood Pressure [Le ft Arm] 106/61 95/47 L Pulse Oximetry 92 92 Oxygen Delivery Me thod Nasal Cannula Nasal Cannula Oxygen Flow Rate 2 1 10/14/22 07:35 10/14/22 07:35 10/14/22 07:35 Temperature Pulse Rate Pulse Rate [Left A pical] Pulse Rate [Left R adial] Respiratory Rate 22 22 Blood Pressure Blood Pressure [Le ft Arm] Pulse Oximetry 93 93 Oxygen Delivery Me thod Room Air Oxygen Flow Rate 10/14/22 07:35 10/14/22 11:06 10/14/22 11:30 Temperature 98.6 F 99.1 F Pulse Rate Pulse Rate [Left A pical] 107 H 112 H Pulse Rate [Left R adial] 107 H 112 H Respiratory Rate 20 22 18 Blood Pressure Blood Pressure [Le ft Arm] 107/60 93/65 Pulse Oximetry 93 93 95 Oxygen Delivery Me thod Room Air Room Air Room Air Oxygen Flow Rate Documenting provider has reviewed patient's vital signs: yes Labs Labs: Laboratory Results - last 24 hr 10/13/22 10/13/22 10/13/22 15:35 15:35 15:35 WBC 12.28 H RBC 4.43 Hgb 13.0 Hct 38.8 MCV 88 MCH 29 MCHC 34 RDW Coeff of Suman 12.6 Plt Count 254 Neut % (Auto) 89.5 H Lymph % (Auto) 5.5 L [place] % (Auto) 3.9 Eos % (Auto) 0.7 Baso % (Auto) 0.1 Neut # (Auto) 11.00 H Lymph # (Auto) 0.70 L [place] # (Auto) 0.50 Eos # (Auto) 0.10 Baso # (Auto) 0.00 Diff Slide Review Sodium 133 L Potassium 3.9 Chloride 102 Carbon Dioxide 19 L BUN 28 Creatinine 2.7 H Estimated Creat Clear 19.06 Estimated GFR 20 Glucose 89 Lactate 2.2 H Calcium 8.3 L Total Bilirubin 1.2 Direct Bilirubin 0.9 H AST 31 ALT 35 Alkaline Phosphatase 106 Troponin I C-Reactive Protein 61.9 H Total Protein 7.4 Albumin 3.6 Procalcitonin SARS-CoV-2 (PCR) Influenza Type A (PCR) Influenza Type B (PCR) RSV (PCR) 10/13/22 10/13/22 10/13/22 15:35 15:35 18:46 WBC RBC Hgb Hct MCV MCH MCHC RDW Coeff of Suman Plt Count Neut % (Auto) Lymph % (Auto) [place] % (Auto) Eos % (Auto) Baso % (Auto) Neut # (Auto) Lymph # (Auto) [place] # (Auto) Eos # (Auto) Baso # (Auto) Diff Slide Review Sodium Potassium Chloride Carbon Dioxide BUN Creatinine Estimated Creat Clear Estimated GFR Glucose Lactate Calcium Total Bilirubin Direct Bilirubin AST ALT Alkaline Phosphatase Troponin I < 0.01 L C-Reactive Protein Total Protein Albumin Procalcitonin 16.10 H SARS-CoV-2 (PCR) Negative SARS-CoV-2 Influenza Type A (PCR) Negative PCR FLU A Influenza Type B (PCR) Negative PCR FLU B RSV (PCR) Negative PCR RSV 10/13/22 10/14/22 10/14/22 18:46 06:40 06:40 WBC 15.87 H RBC 3.99 L Hgb 11.7 L Hct 35.2 MCV 88 MCH 29 MCHC 33 RDW Coeff of Suman 13.1 Plt Count 260 Neut % (Auto) 91.2 H Lymph % (Auto) 4.0 L [place] % (Auto) 3.9 Eos % (Auto) 0.1 Baso % (Auto) 0.0 Neut # (Auto) 14.50 H Lymph # (Auto) 0.60 L [place] # (Auto) 0.60 Eos # (Auto) 0.00 Baso # (Auto) 0.00 Diff Slide Review Acceptable Review Sodium 139 Potassium 3.9 Chloride 109 Carbon Dioxide 21 BUN 24 Creatinine 1.5 Estimated Creat Clear 34.30 Estimated GFR 41 Glucose 95 Lactate 1.9 Calcium 8.1 L Total Bilirubin Direct Bilirubin AST ALT Alkaline Phosphatase Troponin I C-Reactive Protein 59.9 H Total Protein Albumin Procalcitonin SARS-CoV-2 (PCR) Influenza Type A (PCR) Influenza Type B (PCR) RSV (PCR)
--- NOTE | 2022-10-14 15:23 | PC.NURSE ---
Evesther by Dr. Henry Henson. RN administered prn albuterol neb during am med pass. Pt UAL in room, ambulated in hallway with her Miguel Angel. Oxygen sats maintained on room air. Tele indicates sinus tachycardia. Pt had a low grade temp of 99.1 with afternoon VS. Pt received prn tylenol with her scheduled Zosyn,pt declined offer of nebulizer d/to planned visit with her daughters. Mild dyspnea with exertion, intermittent productive cough. Report to Alyce Garcia RN for evening shift.
--- NOTE | 2022-10-14 18:37 | PC.NURSE ---
Shift [id number]- Patient denies pain, though says she might still have pain with coughing if it is severe. She is up ad drake and tolerates well. Remains on room air with saturations >90%.
[2022-10-15] VITALS (7 sets, daily range): BP systolic 106–128; BP diastolic 66–90; PULSE 94–100; RESP 18–24; TEMP 36.4–37.2; O2SAT 93–96
[2022-10-15] MEDS: PIPERACILLIN/TAZOBACTAM 3.375 GM in 0.9 % SODIUM CHLORIDE Mini-bag 100 ML IVPB ×4 (00:19→17:54)
[2022-10-15] MEDS: ALBUTEROL SULFATE 2.5 MG/3 ML VIAL.NEB NEB ×2 (03:54→08:46)
[2022-10-15] MEDS: ACETAMINOPHEN 325 MG TABLET 650 MG PO (06:09)
[2022-10-15] MEDS: OMEPRAZOLE 20 MG CAPSULE DR 40 MG PO (06:09)
--- NOTE | 2022-10-15 06:40 | PC.NURSE ---
Shift note: Pt reports to be less SOB, she had a walk in the hallway in PM, went to the vending machines accompanied by her spouse. O2 sats 94-96% on room air, however she has an increased anxiety and feeling SOB this morning. O2 sats unchanged. Nebulizer administered, Tylenol for generalized discomfort, pt performs breathing exercises with some relief of symptoms.
[2022-10-15 08:29] LABS: Eosinophils Percent Auto 0.5 % (0.0-7.0); Hematocrit 31.5 % (33.0-51.0); Hemoglobin* 10.7 gm/dL (12.0-16.0); Immature Granulocytes Pct Auto 2.4 %; Lymphocytes Percent Auto 7.1 % (20-44); Mean Corpuscular HGB Conc 34 gm/dL (32-36); Mean Corpuscular Hemoglobin 30 pg (26-34); Mean Corpuscular Volume 87 fL (80-100); Monocytes Percent Auto 6.6 % (0.0-11.0); Neutrophils Percent Auto 83.4 % (42.0-72.0); Platelet Count* 252 K/uL (140-440); RDW Coefficient of Variation % 13.3 % (11.5-15.5); Red Blood Count 3.61 m/uL (4.00-5.20); White Blood Count* 21.66 K/uL (4.50-11.00)
[2022-10-15 08:30] LABS: Chloride* 111 mmol/L (96-114); Slide Review Reflex No
[2022-10-15 08:31] LABS: Potassium* 3.1 mmol/L (3.6-5.1); Sodium* 139 mmol/L (135-149)
[2022-10-15 08:33] LABS: Creatinine* 1.1 mg/dL (0.5-1.5); Est. Creatinine Clearance* 46.78; Estimated Glomerular Filt Rate 60 ml/min
[2022-10-15 08:34] LABS: Blood Urea Nitrogen* 19 mg/dL (7-30); Calcium* 9.4 mg/dL (8.4-10.6); Carbon Dioxide* 28 mmol/L (20-32); Glucose* 106 mg/dL (60-115)
[2022-10-15] MEDS: VENLAFAXINE ER 75 MG CAPSULE PO (08:42)
[2022-10-15 08:51] LABS: C Reactive Protein* 25.9 mg/dL (0.5-1.0)
--- NOTE | 2022-10-15 10:19 | PM.IMPN1 ---
Progress Note: A&P Assessment and plan (1) Sepsis: Problem details: Sepsis due to pneumonia with bacteremia. Clinically improving on Zosyn. Add vancomycin pending cultures Status: Acute (2) Acute hypoxemic respiratory failure: Problem details: Due to pneumonia with bacteremia. Continue Zosyn. Add vancomycin. Oxygen as needed. Status: Acute (3) Pneumonia: Problem details: Left upper lobe. Per registered dietician's, sarcoid is probably not a significant contributor to her current pneumonia. Status: Acute (4) Acute renal failure: Problem details: baseline Cr is 0.7-0.8. Creatinine 2.7 on admission and 1.1 today. Continue to trend. Status: Acute (5) Dehydration: Problem details: Due to acute illness. Improved with IV fluids Status: Acute (6) Sarcoidosis: Problem details: No treatment for sarcoid at this time. Outpatient follow-up with pulmonology for this in the future. Status: Chronic (7) Pleuritic chest pain: Problem details: Due to pneumonia. Improved Status: Acute (8) Sleep apnea: Problem details: Outpatient follow-up Status: Acute Plan Continue in hospital pending clinical improvement, ID and sensitivity of her bacteremia. Time Spent With Patient Total time spent: Total time spent today is 35 minutes, 25 minutes discussing with patient and ongoing evaluation and management of pneumonia, bacteremia, sarcoid Subjective Date Seen: 10/15/22 Interval history: Patient seen in followup of hospitalization for left upper lobe pneumonia with hypoxic respiratory failure and sepsis. She 1st became ill about 5 days prior to admission. She had fever chills and left chest and shoulder pain. She was diagnosed with left upper lobe pneumonia by CT. No adenopathy on that CT. Outside of her left upper load she had a few other small patchy infiltrates. Admission blood cultures x4 have turned positive for Gram-positive cocci in chains. Culture and sensitivity is pending Patient reports feeling better today. She feels like her breathing is better her chest pain is better and she feels stronger. She is now off oxygen. She still reports being very dyspneic with any activity. Previous history of sarcoidosis noted. She has not been on treatment for that or under care of a registered dietician. She did see a registered dietician in [place] and considered getting follow-up there in the future. She also saw that registered dietician about sleep apnea. She has not had follow-up of that either. I spoke with Dr. Cortez, the registered dietician she saw, who recommended treating this as pneumonia and not treating the sarcoid except to consider that patients with sarcoidosis can have asthma. She had a severe diarrheal illness at the beginning of August. That has resolved. She just started having diarrhea again today. C diff test is pending. Exam Narrative: Exam Narrative: She is alert and appears in no distress. Breathing is unlabored. Respirations are clear to auscultation without wheezing. She has somewhat decreased breath sounds in her low left upper lung mullins with a few crackles. Air exchange is improved compared to the last 2 days. Cardiovascular S1, S2, regular rate and rhythm. Abdomen: Bowel sounds active. Abdomen is soft without tenderness or mass. Extremities without edema. Const: Vital Signs, click to edit/add: Vital Signs - 24 hr 10/14/22 11:06 10/14/22 11:30 10/14/22 15:15 Temperature 99.1 F Pulse Rate Pulse Rate [Left A pical] 112 H Pulse Rate [Left R adial] 112 H Respiratory Rate 22 18 Blood Pressure [Le ft Arm] 93/65 Pulse Oximetry 93 95 [facility] Air 10/14/22 15:15 10/14/22 15:15 10/14/22 15:55 Temperature 98.4 F Pulse Rate 103 H Pulse Rate [Left A pical] 99 Pulse Rate [Left R adial] Respiratory Rate 18 Blood Pressure [Le ft Arm] 119/65 Pulse Oximetry 96 96 [facility] Room Air 10/14/22 19:20 10/14/22 23:00 10/14/22 23:00 Temperature 98.3 F Pulse Rate 111 H Pulse Rate [Left A pical] 99 Pulse Rate [Left R adial] Respiratory Rate 24 Blood Pressure [Le ft Arm] 107/61 Pulse Oximetry 93 93 Oxygen Delivery Id thod Room Air 10/14/22 23:00 10/14/22 23:00 10/14/22 23:00 Temperature 98.3 F Pulse Rate Pulse Rate [Left A pical] 111 H 99 Pulse Rate [Left R adial] 111 H Respiratory Rate 24 22 20 Blood Pressure [Le ft Arm] Pulse Oximetry 93 93 [facility] Air 10/15/22 03:00 Temperature 99 F Pulse Rate Pulse Rate [Left A pical] 98 Pulse Rate [Left R adial] Respiratory Rate 24 Blood Pressure [Le ft Arm] 128/83 Pulse Oximetry 96 Oxygen Delivery Me thod Room Air Documenting provider has reviewed patient's vital signs: yes Labs Labs: Laboratory Results - last 24 hr 10/15/22 10/15/22 06:00 06:00 WBC 21.66 H RBC 3.61 L Hgb 10.7 L Hct 31.5 L MCV 87 MCH 30 MCHC 34 RDW Coeff of Suman 13.3 Plt Count 252 Neut % (Auto) 83.4 H Lymph % (Auto) 7.1 L [place] % (Auto) 6.6 Eos % (Auto) 0.5 Baso % (Auto) 0.0 Neut # (Auto) 18.10 H Lymph # (Auto) 1.50 [place] # (Auto) 1.40 H Eos # (Auto) 0.10 Baso # (Auto) 0.00 Sodium 139 Potassium 3.1 L Chloride 111 Carbon Dioxide 28 BUN 19 Creatinine 1.1 Estimated Creat Clear 46.78 Estimated GFR 60 Glucose 106 Calcium 9.4 C-Reactive Protein 25.9 H
[2022-10-15 10:24] LABS: C.Difficile Negative (Negative); CDIFFEPI 027 PRESUMPTIVE NEGATIVE (Negative)
[2022-10-15] MEDS: SODIUM CHLORIDE 0.9 % (FLUSH) 10 ML SYRINGE 5 ML IVF ×3 (11:21→21:29)
[2022-10-15] MEDS: POTASSIUM BICARB 25 MEQ EFFERVESCENT TAB 50 MEQ PO (11:22)
--- NOTE | 2022-10-15 15:38 | CRLHL7_ITS ---
For Patients: As a result of the Cures Act, medical imaging exams and procedure reports are released immediately into your electronic medical record. You may view this report before your referring provider. If you have questions, please contact your health care provider. INDICATION: Painful palpable lump over the left calf. LEFT LOWER EXTREMITY VENOUS DUPLEX ULTRASOUND TECHNIQUE: Duplex sonography using grayscale imaging as well as color and spectral Doppler interrogation was performed over the left lower extremity with attention to the deep venous system. FINDINGS: The left common femoral, femoral, deep femoral, popliteal, and posterior tibial veins show normal compressibility, color Doppler flow, and augmentation response. At the site of the painful palpable lump over the mid left calf there is a small noncompressible tubular structure which may represent a short-segment of superficial venous thrombosis. IMPRESSION: 1. No evidence of deep venous thrombosis in the left lower extremity. 2. Possible superficial venous thrombosis at the site of the painful palpable lump over the mid left calf. VINAY CORONA MD [employer] [facility] Dictated by Dimitri Corona MD @ 10/15/2022 5:35:30 PM Dictated by: Dimitri Corona MD @ 10/15/2022 17:35:48 (Electronically Signed)
--- NOTE | 2022-10-15 15:49 | PC.NURSE ---
Tele NSR. Dr. Henson rounds. Prn neb with am med pass. Pt did not care for aromatherapy rested patch and it was removed. Tele discontinued and pt able to shower self it wore me out. Linen changed. 50 Meq of effervescent potassium drink given for K+ level of 3.1. IV Vanco infused followed by IV Zosyn. Pt visiting with family this afternoon, Dr. Henson aware that Sirena is feeling exhausted and feel like I can't get a deep breath. Non productive cough persists. Report to Zee Thompson RN.
--- NOTE | 2022-10-15 17:41 | W.PM.CROSSCO ---
Subjective Subjective Time Seen by Provider: 17:41 Date Seen: 10/15/22 Principal diagnosis: Superficial vein thrombosis, history of DVT Interval history: Sirena c/o pain and swelling of LLE. 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 She has a superficial thrombus of the LLE on US today. She was on SCDs and TEDs for VTE prophylaxis and pharmacologic prophylaxis was avoided due to hemoptysis. She is no longer having hemoptysis. She and her were in the room when I gave them results of the US and discussed treatment options. She was agreeable to anticoagulation. Objective Objective Data Details: Ordering Physician: Kourtney Parker M.D. Date of Service: 10/15/22 Procedure(s): US venous LE LT Accession Number(s): [id number] cc: Kourtney Parker M.D.; Provider,Not a Local ~ For Patients: As a result of the Cures Act, medical imaging exams and procedure reports are released immediately into your electronic medical record. You may view this report before your referring provider. If you have questions, please contact your health care provider. INDICATION: Painful palpable lump over the left calf. LEFT LOWER EXTREMITY VENOUS DUPLEX ULTRASOUND TECHNIQUE: Duplex sonography using grayscale imaging as well as color and spectral Doppler interrogation was performed over the left lower extremity with attention to the deep venous system. FINDINGS: The left common femoral, femoral, deep femoral, popliteal, and posterior tibial veins show normal compressibility, color Doppler flow, and augmentation response. At the site of the painful palpable lump over the mid left calf there is a small noncompressible tubular structure which may represent a short-segment of superficial venous thrombosis. IMPRESSION: 1. No evidence of deep venous thrombosis in the left lower extremity. 2. Possible superficial venous thrombosis at the site of the painful palpable lump over the mid left calf. VINAY CORTEZ MD [facility] [employer] Dictated by Dimitri Cortez MD @ 10/15/2022 5:35:30 PM Dictated by: Dimitri Cortez MD @ 10/15/2022 17:35:48 (Electronically Signed) Assessment and Plan Assessment and plan (1) Superficial thrombosis of left lower extremity: Problem comment: Although this is a superficial vein thrombosis, she has a recent h/o VTE of the LE after a varicose vein stripping which had been treated with anticoagulation. She is at a high risk for extension to the deep venous system. Therefore I will treat her with Xarelto (renally dosed for CrCl <50) at therapeutic doses starting today 10/15/22. Status: Acute
[2022-10-15] MEDS: OXYCODONE 5 MG TABLET PO ×2 (17:54→21:48)
--- NOTE | 2022-10-15 18:12 | PC.NURSE ---
End of Shift Note: Patient was complaining of left calf pain. Update Dr. Parker and ordered an ultrasound to r/o DVT. Patient has compression stocking on from home but complained they were too tight so did switch her out to the hospital [facility]. She also is complaining of pain all over states she has been in this pain since she arrived and has not been able to sleep. Update Dr. Parker again and orders received for oxycodone. Went to hang her 1800 abo but she complained of pain so waiting to have another site started before hooking up her abo. Will continue to monitor until handoff at shift change.
[2022-10-15] MEDS: RIVAROXABAN 10 MG TABLET 15 MG PO (18:45)
[2022-10-16] MEDS: PIPERACILLIN/TAZOBACTAM 3.375 GM in 0.9 % SODIUM CHLORIDE Mini-bag 100 ML IVPB ×2 (00:43→06:18)
[2022-10-16] MEDS: 0.9 % SODIUM CHLORIDE 250 ml IV (00:44)
[2022-10-16 03:00] VITALS: BP 116/71; PULSE 94; RESP 16; TEMP 36.5; O2SAT 91
[2022-10-16 06:53] LABS: Basophils Percent Auto 0.1 % (0.0-3.0); Eosinophils Percent Auto 2.2 % (0.0-7.0); Hematocrit 35.6 % (33.0-51.0); Hemoglobin* 11.8 gm/dL (12.0-16.0); Immature Granulocytes Pct Auto 9.6 %; Lymphocytes Percent Auto 12.1 % (20-44); Mean Corpuscular HGB Conc 33 gm/dL (32-36); Mean Corpuscular Hemoglobin 29 pg (26-34); Mean Corpuscular Volume 89 fL (80-100); Monocytes Percent Auto 10.7 % (0.0-11.0); Neutrophils Percent Auto 65.3 % (42.0-72.0); Platelet Count* 251 K/uL (140-440); RDW Coefficient of Variation % 13.6 % (11.5-15.5); Red Blood Count 4.01 m/uL (4.00-5.20); White Blood Count* 13.59 K/uL (4.50-11.00)
--- NOTE | 2022-10-16 07:03 | PC.NURSE ---
VSS on RA. Patient is alert and oriented x4, able to call for help. Pain managed with oxycodone. IV antibiotic infused x2 this shift . Patient appears stable, up in recliner.
[2022-10-16 07:07] LABS: Chloride* 106 mmol/L (96-114); Potassium* 3.7 mmol/L (3.6-5.1); Sodium* 137 mmol/L (135-149)
[2022-10-16 07:10] LABS: Creatinine* 0.9 mg/dL (0.5-1.5); Est. Creatinine Clearance* 57.17; Estimated Glomerular Filt Rate 76 ml/min
[2022-10-16 07:11] LABS: Blood Urea Nitrogen* 12 mg/dL (7-30); Calcium* 8.4 mg/dL (8.4-10.6); Carbon Dioxide* 28 mmol/L (20-32); Glucose* 82 mg/dL (60-115)
[2022-10-16 07:26] LABS: C Reactive Protein* 15.3 mg/dL (0.5-1.0)
[2022-10-16 07:47] LABS: Slide Review Acceptable Review (Acceptable); Slide Review Reflex Yes
[2022-10-16 08:59] VITALS: BP 123/72; PULSE 95; RESP 20; TEMP 36.8; O2SAT 93
[2022-10-16] MEDS: OMEPRAZOLE 20 MG CAPSULE DR 40 MG PO (09:00)
[2022-10-16] MEDS: OXYCODONE 5 MG TABLET PO (09:00)
[2022-10-16] MEDS: VENLAFAXINE ER 75 MG CAPSULE PO (09:00)
--- NOTE | 2022-10-16 10:03 | PM.DS1 ---
DS: Providers Provider Date Seen: 10/16/22 Date of admission: 10/13/22 18:27 Primary care physician: Not a Local Provider Admitting Clinician: Henry Henson MD Consults: 10/13/22 18:27 Consult to Respiratory Therapy [CONS] Routine Comment: Reason(s) for RT Consult:: Consult Attending Physician on discharge: Henry Henson MD Date of Discharge: 10/16/22 DS: Diagnosis Discharge Diagnosis (1) Sepsis: Status: Acute Problem details: Sepsis due to pneumonia with bacteremia. Treated with Zosyn and vancomycin. (2) Pneumococcal bacteremia: Status: Acute Problem details: Sensitivity still pending. Outpatient followup to address this. Augmentin XR outpatient treatment (3) Pneumonia: Status: Acute Problem details: Left upper lobe. Per collar fuser, sarcoid is probably not a significant contributor to her current pneumonia. (4) Acute hypoxemic respiratory failure: Status: Acute Problem details: Due to pneumonia with bacteremia. Hypoxia resolved. (5) Acute renal failure: Status: Acute Problem details: baseline Cr is 0.7-0.8. Creatinine 2.7 on admission and 0.9 today. (6) Superficial thrombosis of left lower extremity: Status: Acute Problem details: Although this is a superficial vein thrombosis, she has a recent h/o VTE of the LE after a varicose vein stripping which had been treated with anticoagulation. Outpatient treatment for superficial thrombophlebitis with local heat and aspirin 81 mg daily (7) Sleep apnea: Status: Acute Problem details: Outpatient follow-up with collar fuser (8) Sarcoidosis: Status: Chronic Problem details: No treatment for sarcoid at this time. Outpatient follow-up with pulmonology for this in the future. DS: Summary Hospital Course Hospital Course: Patient seen in followup of hospitalization for left upper lobe pneumonia with hypoxic respiratory failure and sepsis.? Patient 1st became ill about 5 days prior to admission.? Evaluated emergency department 2 days prior to admission with suspected viral illness.? Continue to get worse with fever chills dyspnea and left shoulder and left chest pain.? CT yesterday showed a large dense left upper lobe infiltrate.? Subsequently her for blood cultures have turned positive. Cultures are growing pneumococcus. Sensitivity still pending. She also had acute kidney injury associated with sepsis on admission. Abnormal vitals, hypoxia, acute kidney injury all have normalized. Patient has had continuous improvement in her symptoms. She is still dyspneic and fatigued with activity. Status at Discharge Cognitive/behavioral status at discharge: Baseline Functional status at discharge: independent ambulation Overall status at discharge: patient is progressing back to baseline Time Spent with Patient Time attestation: Total time spent providing and/or coordinating discharge services: Time spent: Greater than 30 minutes Exam Narrative: Exam Narrative: She is alert and appears in no distress. Breathing room air. Respirations are clear to auscultation. No obvious consolidation or crackles noted on exam today. Cardiovascular: S1, S2, regular rate and rhythm. No murmur gallop or rub. Abdomen: Bowel sounds active. Abdomen is soft without tenderness or mass. Extremities without edema. She has some mild tenderness in her left mid posterior calf where she was diagnosed with a superficial thrombophlebitis yesterday. Const: Vital Signs, click to edit/add: Vital Signs - 24 hr 10/15/22 11:00 10/15/22 15:00 10/15/22 15:00 Temperature 97.6 F 98.3 F Pulse Rate [Left A pical] 95 97 Pulse Rate [Left R adial] 95 Respiratory Rate 18 22 Blood Pressure [Le ft Arm] 108/66 Blood Pressure [Ri ght Arm] 123/90 H Pulse Oximetry 96 96 96 Oxygen Delivery Me thod Room Air Room Air Room Air 10/15/22 15:00 10/15/22 15:00 10/15/22 19:00 Temperature 98.1 F Pulse Rate [Left A pical] 97 98 Pulse Rate [Left R adial] 95 Respiratory Rate 22 18 Blood Pressure [Le ft Arm] Blood Pressure [Ri ght Arm] 106/71 Pulse Oximetry 96 93 Oxygen Delivery Me thod Room Air 10/15/22 23:00 10/15/22 23:00 10/15/22 23:00 Temperature Pulse Rate [Left A pical] 98 Pulse Rate [Left R adial] 95 Respiratory Rate 18 Blood Pressure [Le ft Arm] Blood Pressure [Ri ght Arm] Pulse Oximetry 94 94 Oxygen Delivery Me thod Room Air 10/15/22 23:00 10/16/22 03:00 10/16/22 08:59 Temperature 97.8 F 97.7 F Pulse Rate [Left A pical] 94 94 Pulse Rate [Left R adial] Respiratory Rate 18 16 Blood Pressure [Le ft Arm] Blood Pressure [Ri ght Arm] 124/72 116/71 Pulse Oximetry 94 91 93 Oxygen Delivery Me thod Room Air Room Air 10/16/22 08:59 Temperature Pulse Rate [Left A pical] Pulse Rate [Left R adial] Respiratory Rate Blood Pressure [Le ft Arm] Blood Pressure [Ri ght Arm] Pulse Oximetry 93 Oxygen Delivery Me thod Room Air Documenting provider has reviewed patient's vital signs: yes DS: Data Data Completed and Pending Labs on day of discharge: Labs from last 24 hours 10/16/22 10/16/22 10/15/22 06:36 06:36 06:00 WBC 13.59 H RBC 4.01 Hgb 11.8 L Hct 35.6 MCV 89 MCH 29 MCHC 33 RDW Coeff of Suman 13.6 Plt Count 251 Neut % (Auto) 65.3 Lymph % (Auto) 12.1 L [place] % (Auto) 10.7 Eos % (Auto) 2.2 Baso % (Auto) 0.1 Neut # (Auto) 8.90 H Lymph # (Auto) 1.60 [place] # (Auto) 1.50 H Eos # (Auto) 0.30 Baso # (Auto) 0.00 Diff Slide Review Acceptable Review Sodium 137 Potassium 3.7 Chloride 106 Carbon Dioxide 28 BUN 12 Creatinine 0.9 Estimated Creat Clear 57.17 Estimated GFR 76 Glucose 82 Calcium 8.4 C-Reactive Protein 15.3 H Stl C.difficile Tox PCR Negative St C. diff Tox Epid 027 PRESUMPTIVE NEGATIVE Preliminary micro results at discharge 10/13/22 17:14 Blood Culture - Preliminary Blood Gram positive cocci in chains 10/13/22 17:36 Blood Culture - Preliminary Blood Gram positive cocci Discharge Plan Discharge Disposition: Home, Self-Care Date of Admission: 10/13/22 18:27 Attending Provider on Discharge: Henry Henson Primary Care Provider: Provider,Not a Local Condition: Improved Anticipated Discharge Date/Time: 10/16/22 11:00 Discharge Medications: New amoxicillin-pot clavulanate 1,000-62.5 mg tablet extended release 12 hr 1 tab PO Q12H 10 Days Qty: 20 0RF aspirin 81 mg capsule 81 mg PO DAILY Qty: 100 0RF Continued venlafaxine 75 mg capsule,extended release 24hr 75 mg PO QDAY Label Comments: TAKE 1 CAPSULE BY MOUTH EVERY DAY omeprazole 40 mg capsule,delayed release(DR/EC) 40 mg PO QDAY Qty: 90 0RF Discharge Orders: Discharge Order (Routine); Ordered 10/16/22 Ordered By: Henry Henson Additional Instructions: Do not return to work until follow-up appointment next SaturdayOctober 22 Continue to wear compression stockings on your legs. Activity Level: Activity as Tolerated Discharge Diet: Regular Follow Up Appointments: Provider,Not a Local [Primary Care Provider] - Christophe Dye PA-C [Physician Pole Peeling Machine Operator] - (Follow-up on October 22 in the [facility]. Repeat chest CT in 4 weeks or sooner if getting worse.) Forms: [employer] Info Instructions Discharge Comments: Please make arrangements for outpatient follow-up with Dr. Luna thomas in the next 1-2 months.
[2022-10-16] MEDS: cefTRIAXone 2 GM in 0.9 % SODIUM CHLORIDE Mini-bag 100 ML IVPB (10:09)
[2022-10-16] MEDS: SODIUM CHLORIDE 0.9 % (FLUSH) 10 ML SYRINGE 5 ML IVF (10:10)
[2022-10-16 10:29] VITALS: BP 110/78; PULSE 95; RESP 20; TEMP 36.8
--- NOTE | 2022-10-16 13:16 | PC.NURSE ---
Called patient as the antibiotic she was originally prescribed at discharge is not available at her pharmacy. Dr. Henson ordered two different antibiotics for her to take. She understands she has two antibiotics to take for 10 days
--- NOTE | 2022-10-16 20:57 | PC.NURSE ---
Pt called r/t concerns of new back rash and changes in throat/breathing sob, highly encouraged her to come into the ED or call EMS, patient seemingly anxious/hesitant to come back to the ED. She said she would have her bring her in. just called and wasn't sure what to do, so I reiterated she's having an allergic reaction from the antibiotic and there's a risk of her airway closing, plus she will need her antibiotics changes so they need to come to the ED, which he agreed and will be bringing her.
== END 2022-10-16 13:04 | disposition home or self-care (01) | DRG 871 ==
LOC: ED 17:19 → MEDSURG 17:40
PROVIDERS: Family Medicine; Admitting Provider Family Medicine; Emergency Provider Family Medicine; Visit Provider Family Medicine
DX: A40.3 Sepsis due to Streptococcus pneumoniae (principal); J18.9 Pneumonia, unspecified organism; R65.20 Severe sepsis without septic shock; J96.01 Acute respiratory failure with hypoxia; N17.9 Acute kidney failure, unspecified; I82.812 Embolism and thrombosis of superficial veins of left lower extremity; D86.0 Sarcoidosis of lung; E86.0 Dehydration; R07.81 Pleurodynia; G47.30 Sleep apnea, unspecified; Z86.718 Personal history of other venous thrombosis and embolism; K21.9 Gastro-esophageal reflux disease without esophagitis; N95.9 Unspecified menopausal and perimenopausal disorder
CPT/HCPCS: 36415; 71260; 80048; 80076; 83605; 84145; 84484; 85025; 86140; 87040; 87070; 87186; 87493; 87502; 87634; 87635; 93005; 93971; 94640; 94664; 94761; 99285; 99291; A9270; J0696; J2543; J3370; J7030; J7050; J7120; J7512; Q9967

== ENCOUNTER 2022-10-16 21:36 | Emergency (ER) | payer OTHER, SELFPAY ==
[2022-10-16] VITALS (11 sets, daily range): BP systolic 125–147; BP diastolic 72–105; PULSE 89–101; RESP 16–20; TEMP 36.7; O2SAT 89–93; BMI 30.8
--- NOTE | 2022-10-16 21:51 | ED.GENADULT ---
HPI - General Adult General Chief complaint: Allergic Reaction Stated complaint: Allergic reaction to oral medications Time Seen by Provider: 10/16/22 21:59 History of Present Illness HPI narrative: This 51-year-old woman comes in with rash on her back that started just prior to arrival. She had been hospitalized with a pneumonia and treated with Zosyn and prescribed a oral medication that she took about an hour prior to arrival. She developed a rash on her back and states that she feels like her mouth is thicker. She arrives with normal vital signs and is showing no sign of angioedema. She does have a rash on her back only. She states an allergy to penicillin but was given Zosyn in the hospital to treat pneumonia and possible sepsis. She was discharged today. It was when she took the oral dose of Augmentin that she began to have this reaction soon thereafter. Related Data Home Medications Medication Instructions Recorded Confirmed venlafaxine 75 mg capsule,extended 75 mg PO QDAY 09/04/22 10/16/22 release 24 hr amoxicillin 875 mg-potassium 1 tab PO BID 10/16/22 10/16/22 clavulanate 125 mg tablet Previous Rx's Medication Instructions Recorded omeprazole 40 mg capsule,delayed 40 mg PO QDAY #90 caps 09/10/22 release aspirin 81 mg capsule 81 mg PO DAILY #100 caps 10/16/22 Allergies Allergy/AdvReac Type Severity Reaction Status Date / Time amoxicillin [From Augmentin] Allergy Intermediate Hives, Verified 10/16/22 22:15 Short of Breath clavulanic acid Allergy Intermediate Hives, Verified 10/16/22 22:15 [From Augmentin] Short of Breath penicillin V Allergy Mild Hives Verified 10/16/22 22:15 Penicillins Allergy Mild Hives Verified 10/16/22 22:15 Review of Systems Status of ROS: Reports: 10 or more systems reviewed and unremarkable except as noted in History and below Narrative: Constitutional: No fevers, no weight gain or loss. Eyes: No discharge. No vision changes. HENT: No congestion, no sore throat, no ear pain. Cardiovascular: No chest pain, no palpitations. Respiratory: No shortness of breath, no wheezes, no cough. Gastrointestinal: No abdominal pain, no vomiting, no diarrhea. Genitourinary: No dysuria, no hematuria. Musculoskeletal: Normal range of motion. Skin: Maculopapular rash on her back. Neurological: No dizziness, weakness, sensory change, speech change. Endo/Heme/Allergies: No bruising or bleeding. No polydipsia. Pysch: no suicidality, no anxiety, no insomnia. All other systems reviewed and are negative. [facility] Medical History (Updated 10/16/22 @ 23:38 by Thanh Ruiz MD) COVID-19 Enlargement of lymph nodes Genital herpes GERD without esophagitis History of abnormal cervical Papanicolaou smear Pneumococcal bacteremia Postmenopausal syndrome Right leg DVT Sarcoidosis Sleep apnea JEROMY (stress urinary incontinence, female) Surgical History History of appendectomy (1986) History of bronchoscopy (12/22/07) History of colonoscopy History of removal of cyst History of tubal ligation Family History (Updated 10/13/22 @ 18:07 by Kourtney Parker MD) Father Diabetes High blood pressure High cholesterol Stroke Mother Lymphoma High cholesterol Brother High cholesterol Grandmother Diabetes Maternal Grandmother No problems noted. 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 . Nonsmoker. 2-4 alcoholic beverages every other week. No recreational drugs. Does not exercise regularly. No concerns with safety or abuse. Smoking Status: Never smoker Do you use any of these nicotine containing products: None Second hand tobacco smoke exposure: No How often do you have a drink containing alcohol: 2-4 times a month How many standard drinks containing alcohol do you have on a typical day: 1 or 2 How often do you have six or more drinks on one occasion: Monthly AUDIT-C Alcohol total score: 4 Non-prescribed substance use: denies use service: No Exam Narrative: Exam Narrative: Constitutional: Well-developed, well-nourished, no acute distress. HEENT: Normocephalic, atraumatic. Oropharynx appears normal. Neck: Normal range of motion. Nontender. Supple. Heart: Regular. No murmurs. Normal rate. Intact distal pulses. Lungs: Clear to auscultation. No chest discomfort. No wheezes, rhonchi, or rales. Good air movement without use of accessory muscles. Abdomen: Normal bowel sounds. Nontender. No rebound tenderness. Genitalia: Deferred. Back: No midline tenderness. Normal range of motion. Extremities: Normal range of motion. No injury. Skin: Maculopapular rash on the back. No sign of angioedema. Neurologic: No altered sensation. No weakness. Alert and oriented. Psychiatric: No suicidality. No insomnia. She is anxious. Nursing notes and vitals signs are reviewed. Const: Vital Signs, click to edit/add: Vital Signs - 24 hr 10/16/22 22:11 10/16/22 21:56 10/16/22 22:00 Temperature 98.0 F Pulse Rate 93 93 Pulse Rate [Right Pulse Oximeter] 89 Respiratory Rate 18 20 Blood Pressure 125/74 Blood Pressure [Ri ght Upper Arm] 138/83 Pulse Oximetry 93 93 93 Oxygen Delivery Me thod Room Air 10/16/22 22:24 10/16/22 22:23 10/16/22 22:32 Temperature Pulse Rate 99 99 Pulse Rate [Right Pulse Oximeter] Respiratory Rate 16 18 Blood Pressure 133/105 H 145/87 H Blood Pressure [Ri ght Upper Arm] Pulse Oximetry 93 91 89 Oxygen Delivery Me thod 10/16/22 22:46 10/16/22 23:01 10/16/22 23:16 Temperature Pulse Rate 101 H 97 97 Pulse Rate [Right Pulse Oximeter] Respiratory Rate 16 16 16 Blood Pressure 147/90 H 146/83 H 147/87 H Blood Pressure [Ri ght Upper Arm] Pulse Oximetry 93 93 92 Oxygen Delivery Me thod Course Vital Signs Vital signs: Initial Vital Signs Respiratory Effort Spontaneous 10/16/22 21:50 Respiratory Depth Normal 10/16/22 21:50 Respiratory Pattern 10/16/22 21:50 Vital Signs Pulse Rate 93 10/16/22 21:56 Pulse Oximetry 93 10/16/22 21:56 Temperature 98.0 F 10/16/22 22:11 Pulse Rate 97 10/16/22 23:16 Respiratory Rate 16 10/16/22 23:16 Blood Pressure 147/87 H 10/16/22 23:16 Pulse Oximetry 92 10/16/22 23:16 Oxygen Delivery Method 10/16/22 22:11 Medical Decision Making MDM Narrative Medical decision making narrative: This patient comes in with a rash on her back and a feeling like her breathing was more tight. She was recently hospitalized for pneumonia and possible sepsis. Her labs improved as she was treated with Zosyn. She was discharged on Augmentin and it was when she took her 1st dose of this medicine that she had began to have these symptoms within an hour so later. She has normal oral exam and does not show any sign of angioedema. She does have a rash that is maculopapular in nature across her back. An IV was established and she did receive Solu-Medrol 125 mg and Benadryl 25 mg intravenously. She was also given epinephrine 0.3 mg intramuscularly. She was observed for a couple hours here without any signs of angioedema or worsening symptoms. It seems that she does have an allergy to Augmentin. She has had a longstanding report of allergy to penicillin medications. She did receive Zosyn in the hospital without any adverse effects. It seems reasonable to discontinue Augmentin here. She did receive a prescription for Levaquin. Discharge Plan Discharge Clinical Impression: Allergic reaction, Pneumonia Patient Disposition: Home w/ Parent or Adult Condition: Improved Additional Instructions: Discontinue Augmentin. Take Levaquin as prescribed. Follow up with MD or return if worsening symptoms happen. Prescriptions: No Action venlafaxine 75 mg capsule,extended release 24hr 75 mg PO QDAY Label Comments: TAKE 1 CAPSULE BY MOUTH EVERY DAY aspirin 81 mg capsule 81 mg PO DAILY Qty: 100 0RF amoxicillin-pot clavulanate 875-125 mg tablet 1 tab PO BID omeprazole 40 mg capsule,delayed release(DR/EC) 40 mg PO QDAY Qty: 90 0RF Follow Up/Referrals: Provider,Not a Local [Primary Care Provider] - Stand Alone Forms: [employer] Info Instructions
[2022-10-16] MEDS: diphenhydrAMINE 50 MG/ML inj 25 MG IVP (21:56)
[2022-10-16] MEDS: LORazepam 2 MG/ML inj 0.5 MG IV (21:57)
[2022-10-16] MEDS: EPINEPHrine 1 MG/ML inj 0.3 MG IM (21:58)
[2022-10-16] MEDS: METHYLPREDNISOLONE SOD SUCC 62.5 MG/ML (125) 125 MG IVP (21:58)
[2022-10-17 00:14] VITALS: BP 125/85; PULSE 95; RESP 16; TEMP 36.8; O2SAT 92
== END 2022-10-17 00:15 | disposition home or self-care (01) ==
PROVIDERS: Emergency Provider Emergency Medicine Emergency Medical Services
DX: I80.01 Phlebitis and thrombophlebitis of superficial vessels of right lower extremity (principal); J18.9 Pneumonia, unspecified organism
CPT/HCPCS: 94761; 96372; 96374; 96375; 99284; J0171; J1200; J2060; J2930

== ENCOUNTER 2022-10-18 21:29 | Emergency (ER) | payer OTHER, SELFPAY ==
[2022-10-18 21:40] VITALS: BP 133/79; PULSE 86; RESP 18; TEMP 36.6; O2SAT 96
--- NOTE | 2022-10-18 21:54 | ED.GENADULT ---
HPI - General Adult General Time Seen by Provider: 21:54 Date Seen: 10/18/22 Chief complaint: Unspecified Complaint, Adult Stated complaint: Pain in legs & arms,Blood clot concern Time Seen by Provider: 10/18/22 21:54 Source: patient and RN notes reviewed Mode of arrival: ambulatory Limitations: no limitations History of Present Illness HPI narrative: Patient is a very pleasant 51-year-old female returning tonight with concern of possible blood clots in her legs. She had veinous work done in both legs last fall and did get a superficial thrombophlebitis in her right leg. She states it was never recheck to be on that. Recently she was ill, was in the ER 1st with a flu-like illness without any cough or respiratory issues. She was worsening and did come back and was found to have a significant left-sided pneumonia, sepsis, was hospitalized here and discharged from our hospital. She was treated inpatient was Zosyn and then switched to Augmentin. She developed a rash after taking oral Augmentin but tolerated Zosyn fine. She was switched to Levaquin and is only been on that a few days. She states her breathing is actually been the best it has been a couple days. She noticed a painful lump in her right thigh and noted that her left thigh was aching as well. She has had left-sided chest pain this whole time with the pneumonia. Today she also felt a little something in the right breast area or underneath it in the chest, with some discomfort. She has felt a little aching in her arms as well today. She is just concerned as she is went through a lot recently. Related Data Home Medications Medication Instructions Recorded Confirmed venlafaxine 75 mg capsule,extended 75 mg PO QDAY 09/04/22 10/16/22 release 24 hr amoxicillin 875 mg-potassium 1 tab PO BID 10/16/22 10/16/22 clavulanate 125 mg tablet Previous Rx's Medication Instructions Recorded omeprazole 40 mg capsule,delayed 40 mg PO QDAY #90 caps 09/10/22 release aspirin 81 mg capsule 81 mg PO DAILY #100 caps 10/16/22 Allergies Allergy/AdvReac Type Severity Reaction Status Date / Time amoxicillin [From Augmentin] Allergy Intermediate Hives, Verified 10/18/22 23:08 Short of Breath clavulanic acid Allergy Intermediate Hives, Verified 10/18/22 23:08 [From Augmentin] Short of Breath penicillin V Allergy Mild Hives Verified 10/18/22 23:08 Penicillins Allergy Mild Hives Verified 10/18/22 23:08 [facility] Medical History COVID-19 Enlargement of lymph nodes Genital herpes GERD without esophagitis History of abnormal cervical Papanicolaou smear Pneumococcal bacteremia Postmenopausal syndrome Right leg DVT Sarcoidosis Sleep apnea JEROMY (stress urinary incontinence, female) Surgical History History of appendectomy (1986) History of bronchoscopy (12/22/07) History of colonoscopy History of removal of cyst History of tubal ligation Family History Father Diabetes High blood pressure High cholesterol Stroke Mother Lymphoma High cholesterol Brother High cholesterol Grandmother Diabetes Maternal Grandmother No problems noted. 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 . Nonsmoker. 2-4 alcoholic beverages every other week. No recreational drugs. Does not exercise regularly. No concerns with safety or abuse. Smoking Status: Never smoker Do you use any of these nicotine containing products: None Second hand tobacco smoke exposure: No How often do you have a drink containing alcohol: 2-4 times a month How many standard drinks containing alcohol do you have on a typical day: 1 or 2 How often do you have six or more drinks on one occasion: Monthly AUDIT-C Alcohol total score: 4 Non-prescribed substance use: denies use service: No Exam Const: Vital Signs, click to edit/add: Vital Signs - 24 hr 10/18/22 21:40 10/18/22 22:02 10/18/22 23:59 Temperature 97.8 F Pulse Rate [Left P ulse Oximeter] 86 88 Respiratory Rate 18 22 Blood Pressure [Ri ght Upper Arm] 133/79 119/71 Pulse Oximetry 96 93 93 Oxygen Delivery Me thod Room Air Room Air Documenting provider has reviewed patient's vital signs: yes Common normals: no apparent distress, average body habitus, oriented x3, no limitations, healthy appearing and alert General appearance: cooperative, comfortable, well kempt, well developed and anxious (Mild) HENMT: Common normals: normocephalic, head/scalp atraumatic and hearing grossly normal bilaterally Head and scalp: normocephalic and atraumatic Eye: Common normals: PERRL, EOMs intact bilaterally, conjunctivae normal and no scleral icterus Conjunctiva: conjunctiva(e) normal Pupil: PERRL Neck & C-Spine: Common normals: full ROM, no lymphadenopathy, supple, no meningeal signs, no JVD and thyroid normal Thyroid: thyroid normal Resp: Common normals: normal respiratory effort, no retractions, no use of accessory muscles and clear to auscultation bilaterally Auscultation: clear to auscultation bilaterally Cardio: Common normals: no JVD, regular rate, regular rhythm, S1 normal heart sound, S2 normal heart sound, no gallops, no clicks, no murmurs and no rub Rate: regular rate Rhythm: regular rhythm Heart sounds: S1 normal and S2 normal GI: Common normals: Normal to inspection, nondistended, normoactive bowel sounds present, soft to palpation, non-tender, no hepatosplenomegaly and no masses Palpation: soft and no hepatosplenomegaly Extremity: Other: Patient had compression stockings on which were removed. She has no underlying lower extremity edema. The compression stockings were below the knee. On her right thigh in the medial midportion I can palpate what seems might be a small area of a palpable cord. There is no overlying erythema. She is not significantly tender but does state it sore. Neuro: Common normals: oriented x3 Sensorium/orientation: alert Meningeal signs: no meningeal signs Psych: Appearance: well kempt Course Course Hospital Course: Reviewed with patient and her that we will obtain venous ultrasounds of her lower extremities. They are quite happy with that. We also going to do some blood work, obtain an EKG, consider CT PE imaging if need be. Will also check a troponin. She has had recent hospitalization and a left-sided pneumonia. She overall feels she is improving but states she really has had a rough course recently and I do understand that. Will consider thromboembolic disease, cardiac issues. She understands our plan and is in agreement at this time. Reevaluation(s) Reevaluation #1: Reviewed with the patient her bilateral superficial thrombus in both of her lesser saphenous veins in each leg. These are not DVTs. Her D-dimer is however elevated an with her left chest symptoms that have been going with her pneumonia and than the right-sided chest pain she has had today, do feel that we should proceed with chest CT PE protocol. She is in agreement. Reviewed her normal troponin. Time: 23:13 Reevaluation #2: Patient advised of results, reviewed CT scan - no PE. Reviewed their questions regarding antibiotics for the pneumonia she is using, treatment of the superficial thrombophlebitis. Time: 00:32 Vital Signs Vital signs: Initial Vital Signs Temperature 97.8 F 10/18/22 21:40 Temperature Source Temporal Artery Scan 10/18/22 21:40 Pulse Rate 86 10/18/22 21:40 Pulse Rhythm 10/18/22 21:40 Respiratory Rate 18 10/18/22 21:40 Blood Pressure 133/79 10/18/22 21:40 Blood Pressure Mean 97 10/18/22 21:40 Pulse Oximetry 96 10/18/22 21:40 Oxygen Delivery Method 10/18/22 21:40 Vital Signs Temperature 97.8 F 10/18/22 21:40 Pulse Rate 86 10/18/22 21:40 Respiratory Rate 18 10/18/22 21:40 Blood Pressure 133/79 10/18/22 21:40 Pulse Oximetry 96 10/18/22 21:40 Oxygen Delivery Method 10/18/22 21:40 Temperature 97.8 F 10/18/22 21:40 Pulse Rate 88 10/18/22 23:59 Respiratory Rate 22 10/18/22 23:59 Blood Pressure 119/71 10/18/22 23:59 Pulse Oximetry 93 10/18/22 23:59 Oxygen Delivery Method 10/18/22 23:59 Medical Decision Making Lab Data Lab results reviewed: Yes I reviewed the patient's lab results Labs: Lab Results 10/18/22 10/18/22 10/18/22 Range/Units 22:03 22:16 22:16 WBC 12.42 H (4.50-11.00) K/uL RBC 4.23 (4.00-5.20) m/uL Hgb 12.3 (12.0-16.0) gm/dL Hct 37.0 (33.0-51.0) % MCV 88 (80-100) fL MCH 29 (26-34) pg MCHC 33 (32-36) gm/dL RDW Coeff of Suman 13.0 (11.5-15.5) % Plt Count 347 (140-440) K/uL Neut % (Auto) 61.5 (42.0-72.0) % Lymph % (Auto) 21.9 (20-44) % Beauregard % (Auto) 6.4 (0.0-11.0) % Eos % (Auto) 2.3 (0.0-7.0) % Baso % (Auto) 0.3 (0.0-3.0) % Neut # (Auto) 7.60 H (1.7-7.0) K/uL Lymph # (Auto) 2.70 (0.90-2.90) K/uL Beauregard # (Auto) 0.80 (0.00-0.90) K/UL Eos # (Auto) 0.30 (0.00-0.50) K/uL Baso # (Auto) 0.00 (0.00-0.30) K/uL Diff Slide Review Acceptable Review (Acceptable) D-Dimer Quant (PE/DVT) 2.90 H (0.00-0.50) ug/ml Sodium (135-149) mmol/L Potassium (3.6-5.1) mmol/L Chloride (96-114) mmol/L Carbon Dioxide (20-32) mmol/L BUN (7-30) mg/dL Creatinine (0.5-1.5) mg/dL Estimated GFR ml/min Glucose (60-115) mg/dL Lactate (0.5-1.9) mmol/L Calcium (8.4-10.6) mg/dL Total Bilirubin (0.1-1.5) mg/dL AST (12-35) U/L ALT (4-35) U/L Alkaline Phosphatase (40-150) U/L C-Reactive Protein (0.5-1.0) mg/dL NT-Pro-B Natriuret Pep pg/mL Total Protein (6.0-8.3) g/dL Albumin (3.3-5.0) g/dL POC Troponin I 0.00 L (0.01-0.04) ng/ml 10/18/22 10/18/22 Range/Units 22:16 22:16 WBC (4.50-11.00) K/uL RBC (4.00-5.20) m/uL Hgb (12.0-16.0) gm/dL Hct (33.0-51.0) % MCV (80-100) fL MCH (26-34) pg MCHC (32-36) gm/dL RDW Coeff of Suman (11.5-15.5) % Plt Count (140-440) K/uL Neut % (Auto) (42.0-72.0) % Lymph % (Auto) (20-44) % Beauregard % (Auto) (0.0-11.0) % Eos % (Auto) (0.0-7.0) % Baso % (Auto) (0.0-3.0) % Neut # (Auto) (1.7-7.0) K/uL Lymph # (Auto) (0.90-2.90) K/uL Beauregard # (Auto) (0.00-0.90) K/UL Eos # (Auto) (0.00-0.50) K/uL Baso # (Auto) (0.00-0.30) K/uL Diff Slide Review (Acceptable) D-Dimer Quant (PE/DVT) (0.00-0.50) ug/ml Sodium 136 (135-149) mmol/L Potassium 3.8 (3.6-5.1) mmol/L Chloride 106 (96-114) mmol/L Carbon Dioxide 25 (20-32) mmol/L BUN 11 (7-30) mg/dL Creatinine 0.7 (0.5-1.5) mg/dL Estimated GFR 103 ml/min Glucose 106 (60-115) mg/dL Lactate 1.5 (0.5-1.9) mmol/L Calcium 8.0 L (8.4-10.6) mg/dL Total Bilirubin 0.6 (0.1-1.5) mg/dL AST 29 (12-35) U/L ALT 21 (4-35) U/L Alkaline Phosphatase 77 (40-150) U/L C-Reactive Protein 3.3 H (0.5-1.0) mg/dL NT-Pro-B Natriuret Pep 611 pg/mL Total Protein 6.9 (6.0-8.3) g/dL Albumin 3.2 L (3.3-5.0) g/dL POC Troponin I (0.01-0.04) ng/ml Imaging Data Venous US: Attestation: I have reviewed the pertinent imaging results. Radiologist's impression: [facility] Patient ID:?[id number] Site Patient ID:?[id number]. Site :?[id number] Study:?US Extremity Bilateral BILAT LEV-10/18/2022 11:14:02 PM Ordering Physician:?Alec Anderson Final Report: INDICATION: Leg pain and swelling. TECHNIQUE: Ultrasound venous duplex bilateral lower extremity. Compression venous exam was performed using cruz-scale, color Doppler, and spectral Doppler analysis. COMPARISON: 10/15/2022. FINDINGS: Deep veins: Sonographic imaging demonstrates the bilateral common femoral, deep femoral, superficial femoral, popliteal, and posterior tibial veins to be fully compressible with normal color Doppler blood flow. Superficial veins: Greater saphenous vein is fully compressible. At the site of palpable lumps in the bilateral posterior calves, there are small noncompressible tubular structures likely representing superficial thrombophlebitis. No popliteal cyst. IMPRESSION: 1. No sign of deep venous thrombosis. 2. Superficial thrombophlebitis at the site of palpable lumps in the bilateral posterior calves. Dictated by Marshal Cloud MD @ 10/18/2022 11:39:11 PM (Electronic Signature) CT scan - chest: Attestation: I have reviewed the pertinent imaging results. Radiologist's impression: Patient: [facility] Facility:?[facility] Patient ID:?[id number] Site Patient ID:?[id number]. Site :?[id number] Study:?CT Chest Angio -10/18/2022 11:30:41 PM Ordering Physician:Rosaura Anderson Final Report: INDICATION: Elevated D-dimer. TECHNIQUE: CT chest PE was acquired with 95 cc Isovue 370 IV contrast. COMPARISON: 10/13/2022. FINDINGS: Heart and vasculature: Contrast opacification of the pulmonary arterial tree is suboptimal. No sign of central pulmonary embolism. Heart size is normal. Thoracic aorta and pulmonary artery are normal in caliber. Lungs and pleura: New small left pleural effusion. Slightly decreased left upper lobe confluent consolidation. Patchy ground-glass opacities in the bilateral lower lobes, also slightly decreased. Lymph nodes/mediastinum: No mediastinal, hilar, or axillary adenopathy. Thyroid gland is unremarkable. Chest wall: No masses. Upper abdomen: No acute or significant findings. Bones: Unremarkable for age. IMPRESSION: 1. Suboptimal contrast opacification of the pulmonary arteries, with otherwise no evidence of central pulmonary embolism. 2. Slightly decreased left upper lobe confluent consolidation, likely representing pneumonia. 3. New small left pleural effusion. Please note that all CT scans at this facility use dose modulation, iterative reconstruction, and/or weight-based dosing when appropriate to reduce radiation dose to as low as reasonably achievable. Dictated by Marshal Cloud MD @ 10/19/2022 12:04:41 AM (Electronic Signature) ECG Data Attestation: I personally reviewed and interpreted this ECG as follows: (Normal sinus rhythm, 76 beats per minute. Low voltage QRS and flattened T-waves lead 3. Nonspecific T-wave changes in precordial leads. QT corrected 434 milliseconds.) Prior ECG tracings: available for review (Do not appreciate significant change from her EKG dated 10/13/2022) Discharge Plan Discharge Clinical Impression: Superficial thrombophlebitis, Pneumonia Patient Disposition: Home, Self-Care Condition: Stable Instructions: Superficial Thrombophlebitis (ED) Additional Instructions: Continue to wear your compression stockings, take a daily aspirin. Follow handout, can use Tylenol and ibuprofen alternating for symptom control. You should continue to treat for your pneumonia as advised previously. Keep your clinic follow-up with your primary care provider this coming Saturday that you have scheduled. In the meantime, if you have further concerns, feel you are worsening, please seek re-evaluation. Activity Level: Activity as Tolerated Prescriptions: No Action venlafaxine 75 mg capsule,extended release 24hr 75 mg PO QDAY Label Comments: TAKE 1 CAPSULE BY MOUTH EVERY DAY aspirin 81 mg capsule 81 mg PO DAILY Qty: 100 0RF amoxicillin-pot clavulanate 875-125 mg tablet 1 tab PO BID omeprazole 40 mg capsule,delayed release(DR/EC) 40 mg PO QDAY Qty: 90 0RF Follow Up/Referrals: Provider,Not a Local [Referring] - Stand Alone Forms: MyHealth Info Instructions
[2022-10-18 22:02] VITALS: O2SAT 93
--- NOTE | 2022-10-18 22:02 | CRLHL7_ITS ---
For Patients: As a result of the Century Cures Act, medical imaging exams and procedure reports are released immediately into your electronic medical record. You may view this report before your referring provider. If you have questions, please contact your health care provider. INDICATION: Leg pain and swelling. TECHNIQUE: Ultrasound venous duplex bilateral lower extremity. Compression venous exam was performed using cruz-scale, color Doppler, and spectral Doppler analysis. COMPARISON: 10/15/2022. FINDINGS: Deep veins: Sonographic imaging demonstrates the bilateral common femoral, deep femoral, superficial femoral, popliteal, and posterior tibial veins to be fully compressible with normal color Doppler blood flow. Superficial veins: Greater saphenous vein is fully compressible. At the site of palpable lumps in the bilateral posterior calves, there are small noncompressible tubular structures likely representing superficial thrombophlebitis. No popliteal cyst. IMPRESSION: 1. No sign of deep venous thrombosis. 2. Superficial thrombophlebitis at the site of palpable lumps in the bilateral posterior calves. Dictated by Marshal Cloud MD @ 10/18/2022 11:39:11 PM (Electronically Signed)
[2022-10-18 22:26] LABS: Lactate* 1.5 mmol/L (0.5-1.9)
[2022-10-18 22:30] LABS: Basophils Percent Auto 0.3 % (0.0-3.0); Eosinophils Percent Auto 2.3 % (0.0-7.0); Hemoglobin* 12.3 gm/dL (12.0-16.0); Immature Granulocytes Pct Auto 7.6 %; Lymphocytes Percent Auto 21.9 % (20-44); Mean Corpuscular HGB Conc 33 gm/dL (32-36); Mean Corpuscular Hemoglobin 29 pg (26-34); Mean Corpuscular Volume 88 fL (80-100); Monocytes Percent Auto 6.4 % (0.0-11.0); Neutrophils Percent Auto 61.5 % (42.0-72.0); Platelet Count* 347 K/uL (140-440); Red Blood Count 4.23 m/uL (4.00-5.20); White Blood Count* 12.42 K/uL (4.50-11.00)
[2022-10-18 22:34] LABS: Slide Review Reflex Yes
[2022-10-18 22:41] LABS: Albumin* 3.2 g/dL (3.3-5.0); Chloride* 106 mmol/L (96-114); Sodium* 136 mmol/L (135-149)
[2022-10-18 22:42] LABS: Potassium* 3.8 mmol/L (3.6-5.1)
[2022-10-18 22:44] LABS: Carbon Dioxide* 25 mmol/L (20-32); Creatinine* 0.7 mg/dL (0.5-1.5); Estimated Glomerular Filt Rate 103 ml/min
[2022-10-18 22:45] LABS: Alanine Aminotransferase* 21 U/L (4-35); Alkaline Phosphatase* 77 U/L (40-150); Aspartate Amino Transferase* 29 U/L (12-35); Bilirubin Total* 0.6 mg/dL (0.1-1.5); Blood Urea Nitrogen* 11 mg/dL (7-30); Glucose* 106 mg/dL (60-115); Total Protein* 6.9 g/dL (6.0-8.3)
[2022-10-18 22:47] LABS: C Reactive Protein* 3.3 mg/dL (0.5-1.0)
[2022-10-18 22:54] LABS: NT Pro B Type NatriureticPept* 611 pg/mL
[2022-10-18 22:56] LABS: Slide Review Acceptable Review (Acceptable)
--- NOTE | 2022-10-18 23:00 | CRLHL7_ITS ---
For Patients: As a result of the Century Cures Act, medical imaging exams and procedure reports are released immediately into your electronic medical record. You may view this report before your referring provider. If you have questions, please contact your health care provider. INDICATION: Elevated D-dimer. TECHNIQUE: CT chest PE was acquired with 95 cc Isovue 370 IV contrast. COMPARISON: 10/13/2022. FINDINGS: Heart and vasculature: Contrast opacification of the pulmonary arterial tree is suboptimal. No sign of central pulmonary embolism. Heart size is normal. Thoracic aorta and pulmonary artery are normal in caliber. Lungs and pleura: New small left pleural effusion. Slightly decreased left upper lobe confluent consolidation. Patchy ground-glass opacities in the bilateral lower lobes, also slightly decreased. Lymph nodes/mediastinum: No mediastinal, hilar, or axillary adenopathy. Thyroid gland is unremarkable. Chest wall: No masses. Upper abdomen: No acute or significant findings. Bones: Unremarkable for age. IMPRESSION: 1. Suboptimal contrast opacification of the pulmonary arteries, with otherwise no evidence of central pulmonary embolism. 2. Slightly decreased left upper lobe confluent consolidation, likely representing pneumonia. 3. New small left pleural effusion. Please note that all CT scans at this facility use dose modulation, iterative reconstruction, and/or weight-based dosing when appropriate to reduce radiation dose to as low as reasonably achievable. Dictated by Marshal Cloud MD @ 10/19/2022 12:04:41 AM (Electronically Signed)
[2022-10-18 23:59] VITALS: BP 119/71; PULSE 88; RESP 22; O2SAT 93
== END 2022-10-19 00:51 | disposition home or self-care (01) ==
PROVIDERS: Emergency Provider Family Medicine; PCP Family Medicine
DX: I80.03 Phlebitis and thrombophlebitis of superficial vessels of lower extremities, bilateral (principal); J18.9 Pneumonia, unspecified organism
CPT/HCPCS: 36415; 71260; 80053; 83605; 83880; 84484; 85025; 85379; 86140; 93005; 93970; 94761; 99284; 99285; Q9967

== ENCOUNTER 2022-10-22 12:27 | Outpatient (CLI) | payer OTHER, SELFPAY ==
[2022-10-22 17:17] LABS: Chloride* 105 mmol/L (96-114)
[2022-10-22 17:18] LABS: Potassium* 4.7 mmol/L (3.6-5.1); Sodium* 138 mmol/L (135-149)
[2022-10-22 17:20] LABS: Creatinine* 0.8 mg/dL (0.5-1.5); Estimated Glomerular Filt Rate 88 ml/min
[2022-10-22 17:21] LABS: Blood Urea Nitrogen* 10 mg/dL (7-30); Calcium* 9.1 mg/dL (8.4-10.6); Carbon Dioxide* 25 mmol/L (20-32); Glucose* 95 mg/dL (60-115)
[2022-10-22 17:24] LABS: C Reactive Protein* 8.1 mg/dL (0.5-1.0)
[2022-10-22 17:41] LABS: NT Pro B Type NatriureticPept* 93 pg/mL
== END 2022-10-22 12:28 | disposition home or self-care (01) ==
PROVIDERS: PCP Family Medicine; Visit Provider Family Medicine
DX: I80.9 Phlebitis and thrombophlebitis of unspecified site (principal); R00.0 Tachycardia, unspecified; R06.4 Hyperventilation; R61 Generalized hyperhidrosis; N81.9 Female genital prolapse, unspecified; N39.3 Stress incontinence (female) (male)
CPT/HCPCS: 80048; 83880; 86140

== ENCOUNTER 2022-11-20 08:45 | Outpatient (RCR) | payer OTHER, SELFPAY ==
[2022-11-09 10:23] LABS: Basophils Absolute Auto 0.04 K/uL (0.00-0.30); Basophils Percent Auto 0.6 % (0.0-3.0); Eosinophils Absolute Auto 0.42 K/uL (0.00-0.50); Eosinophils Percent Auto 6.6 % (0.0-7.0); Hematocrit 35.1 % (33.0-51.0); Hemoglobin* 11.6 gm/dL (12.0-16.0); Immature Granulocytes Abs Auto 0.01 K/uL (0.00-0.30); Immature Granulocytes Pct Auto 0.2 %; Lymphocytes Absolute Auto 1.54 K/uL (0.90-2.90); Lymphocytes Percent Auto 24.1 % (20-44); Mean Corpuscular HGB Conc 33 gm/dL (32-36); Mean Corpuscular Hemoglobin 29 pg (26-34); Mean Corpuscular Volume 87 fL (80-100); Monocytes Percent Auto 7.3 % (0.0-11.0); Neutrophils Absolute Auto 3.92 K/uL (1.7-7.0); Neutrophils Percent Auto 61.2 % (42.0-72.0); Platelet Count* 430 K/uL (140-440); RDW Coefficient of Variation % 12.3 % (11.5-15.5); Red Blood Count 4.03 m/uL (4.00-5.20)
[2022-11-09 10:47] LABS: Alkaline Phosphatase* 87 U/L (40-150); Creatinine* 0.6 mg/dL (0.5-1.5); Estimated Glomerular Filt Rate 107 ml/min
[2022-11-09 10:48] LABS: Alanine Aminotransferase* 40 U/L (4-35)
[2022-11-09 11:50] LABS: Slide Review Reflex No
[2022-11-16 10:54] LABS: Basophils Absolute Auto 0.03 K/uL (0.00-0.30); Basophils Percent Auto 0.6 % (0.0-3.0); Eosinophils Absolute Auto 0.36 K/uL (0.00-0.50); Eosinophils Percent Auto 6.7 % (0.0-7.0); Hematocrit 37.3 % (33.0-51.0); Hemoglobin* 12.4 gm/dL (12.0-16.0); Immature Granulocytes Abs Auto 0.01 K/uL (0.00-0.30); Immature Granulocytes Pct Auto 0.2 %; Lymphocytes Percent Auto 25.9 % (20-44); Mean Corpuscular HGB Conc 33 gm/dL (32-36); Mean Corpuscular Hemoglobin 29 pg (26-34); Mean Corpuscular Volume 88 fL (80-100); Monocytes Percent Auto 8.3 % (0.0-11.0); Neutrophils Absolute Auto 3.16 K/uL (1.7-7.0); Neutrophils Percent Auto 58.3 % (42.0-72.0); Platelet Count* 347 K/uL (140-440); RDW Coefficient of Variation % 12.8 % (11.5-15.5); Red Blood Count 4.26 m/uL (4.00-5.20); White Blood Count* 5.41 K/uL (4.50-11.00)
[2022-11-16 10:58] LABS: Slide Review Reflex No
[2022-11-16 11:12] LABS: Alanine Aminotransferase* 35 U/L (4-35); Alkaline Phosphatase* 89 U/L (40-150); Creatinine* 0.6 mg/dL (0.5-1.5); Estimated Glomerular Filt Rate 107 ml/min
--- NOTE | 2022-11-16 15:43 | PC.NURSE ---
Received a call from TATY Boogie at [facility] in [place] stating that Sirena can have her PICC line removed after her last antibiotic dose on Saturday. RN scheduled pt to come in on Saturday for PICC line removal. Order is already in pt's chart. We just needed clarification on timing.
[2022-11-20 08:30] VITALS: BP 144/89; PULSE 94; RESP 16; TEMP 37; O2SAT 98
--- NOTE | 2022-11-20 08:30 | ONC.NURNOTE ---
PICC line removed in right upper arm. Catheter was easily removed without resistance. Tip of catheter intact. Pressure was held at site for 2min. Occlusive dressing applied with a pressure wrap. Catheter length was 41cm. VSS. Patient remained flat for 30min. Has follow up with [facility] at the end of the week.
[2022-11-20 09:11] VITALS: BP 135/87; PULSE 85; RESP 16; O2SAT 98
== END 2023-05-08 23:59 | disposition home or self-care (01) ==
LOC: CCIC 08:45
PROVIDERS: PCP Family Medicine; Referring Provider Family Medicine; Visit Provider Clinical Nurse Specialist
DX: J18.9 Pneumonia, unspecified organism (principal); Z45.2 Encounter for adjustment and management of vascular access device
CPT/HCPCS: 36415; 36589; 36592; 82565; 84075; 84460; 85025; A4221

== ENCOUNTER 2023-04-14 10:57 | Emergency (ER) | payer OTHER, SELFPAY ==
[2023-04-14] VITALS (7 sets, daily range): BP systolic 115–146; BP diastolic 63–94; PULSE 107–116; RESP 16–24; TEMP 36.7; O2SAT 95–97; BMI 34.8
--- NOTE | 2023-04-14 11:52 | ED_ITS ---
HPI - General Adult General Time Seen by Provider: 11:52 Date Seen: 04/14/23 Chief complaint: Weakness Stated complaint: vomiting Time Seen by Provider: 04/14/23 11:47 Source: patient, RN notes reviewed and old records reviewed Mode of arrival: ambulatory Limitations: no limitations History of Present Illness HPI narrative: 52-year-old female who presents today with vomiting and diarrhea. She has felt poorly with fatigue and shortness of breath the last couple of weeks, overnight to last night developed vomiting and diarrhea as well as some abdominal cramping. Denies blood in the stools, fever 101 reported at home. Denies chest pain, no cough, no sore throat, denies urinary symptoms. Has not taken anything for her symptoms. Related Data Previous Rx's Medication Instructions Recorded venlafaxine 75 mg capsule,extended 75 mg PO QAM #90 caps 01/08/23 release 24 hr omeprazole 40 mg capsule,delayed 40 mg PO QDAY #90 caps 04/05/23 release Allergies Allergy/AdvReac Type Severity Reaction Status Date / Time amoxicillin [From Augmentin] Allergy Intermediate Hives, Verified 04/11/23 16:04 Short of Breath clavulanic acid Allergy Intermediate Hives, Verified 04/11/23 16:04 [From Augmentin] Short of Breath penicillin V Allergy Mild Hives Verified 04/11/23 16:04 Penicillins Allergy Mild Hives Verified 04/11/23 16:04 Review of Systems Status of ROS: Reports: 10 or more systems reviewed and unremarkable except as noted in History and below [facility] Medical History Pneumonia ?J18.9 - Pneumonia, unspecified organism (ICD-10) Pneumococcal bacteremia ?R78.81 - Bacteremia (ICD-10) ?B95.3 - Streptococcus pneumoniae as the cause of diseases classified elsewhere (ICD-10) Superficial thrombosis of left lower extremity ?I82.812 - Embolism and thrombosis of superficial veins of left lower extr emity (ICD-10) Sleep apnea ?G47.30 - Sleep apnea, unspecified (ICD-10) Right leg DVT ?I82.401 - Acute embolism and thrombosis of unspecified deep veins of right lower extremity (ICD-10) Enlargement of lymph nodes ?R59.9 - Enlarged lymph nodes, unspecified (ICD-10) JEROMY (stress urinary incontinence, female) ?N39.3 - Stress incontinence (female) (male) (ICD-10) Genital herpes ?A60.00 - Herpesviral infection of urogenital system, unspecified (ICD-10) Postmenopausal syndrome ?N95.1 - Menopausal and female climacteric states (ICD-10) GERD without esophagitis ?K21.9 - Gastro-esophageal reflux disease without esophagitis (ICD-10) Sarcoidosis ?D86.9 - Sarcoidosis, unspecified (ICD-10) COVID-19 ?U07.1 - COVID-19 (ICD-10) Surgical History History of bronchoscopy (12/22/07) ?Z98.890 - Other specified postprocedural states (ICD-10) History of tubal ligation ?Z98.51 - Tubal ligation status (ICD-10) History of removal of cyst ?Z98.890 - Other specified postprocedural states (ICD-10) History of colonoscopy ?Z98.890 - Other specified postprocedural states (ICD-10) History of appendectomy (1986) ?Z90.49 - Acquired absence of other specified parts of digestive tract (ICD- 10) Family History Father Diabetes High blood pressure High cholesterol Stroke Mother Lymphoma High cholesterol Brother High cholesterol Grandmother Diabetes Maternal Grandmother No problems noted. 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 . Nonsmoker. 2-4 alcoholic beverages every other week. No recreational drugs. Does not exercise regularly. No concerns w ith safety or abuse. Smoking Status: Never smoker Do you use any of these nicotine containing products: None Second hand tobacco smoke exposure: No How often do you have a drink containing alcohol: 2-4 times a month How many standard drinks containing alcohol do you have on a typical day: 1 or 2 How often do you have six or more drinks on one occasion: Monthly AUDIT-C Alcohol total score: 4 Non-prescribed substance use: denies use Little interest or pleasure in doing things: more than half the days Feeling down, depressed, or hopeless: not at all service: No Exam Narrative: Exam Narrative: General: Well-developed and well-nourished, no acute distress Head: Atraumatic and normocephalic Eyes: Pupils are equal reactive, extraocular motions intact, conjunctiva clear ENT: External nose and ears are normal, posterior pharynx without erythema or exudate Neck: No midline cervical tenderness, full spontaneous range of motion the neck, trachea midline, no adenopathy Heart: Tachycardic but regular Lungs: Clear to auscultation bilaterally without wheezes or crackles Abdomen: Soft, nontender, nondistended with active bowel sounds Musculoskeletal: No tenderness, deformity, or edema Neurologic: Awake, alert, and oriented x3, no gross focal neurologic deficits, cranial nerves intact as tested Psych: Mood and affect are appropriate Skin: No rashes Const: Vital Signs, click to edit/add: Vital Signs - 24 hr 04/14/23 11:27 Temperature 98.1 F Pulse Rate [Pulse Oximeter] 116 H Respiratory Rate 24 Blood Pressure [Ri ght Upper Arm] 136/89 Pulse Oximetry 97 Oxygen Delivery Me thod Room Air Course Course Hospital Course: Patient seen examined, reviewed most recent urgent care visit from April 11 when patient had chest x-ray done which was read as COPD, a negative D-dimer at that time as well. Also reviewed prior emergency department records from September 2022 when patient seen a couple of times with upper respiratory symptoms and subsequently developed sepsis and pneumonia, was transferred to [facility]. Patient has had some shortness of breath and fatigue for the last couple of weeks, labs and CT scan are ordered to evaluate for atypical pneumonia, pulmonary embolism. Also now with gastrointestinal symptoms of diarrhea, vomiting, and abdominal cramping. No tenderness on exam now. Tachycardic, IV fluids are initiated along with Zofran. Reevaluation(s) Time of Reevaluation #1: 13:10 Reevaluation #1: Labs independently interpreted by me with normal CBC, reassuring hemoglobin, 82.5% neutrophils. Basic panel with mild hypomagnesemia and mild hypokalemia, both of which are replaced in the emergency department. Slight elevation in AST and ALT, COVID test pending. CT scan of the chest PE protocol independently interpreted by me does not demonstrate any acute central pulmonary embolism, no acute infiltrate or effusion, question small area of mucous plugging or atelectasis on the left. CT scan of the abdomen pelvis with some mild mesenteric haziness in the left upper quadrant along with some fluid-filled loops of small bowel that are not distended do not appear to represent small- bowel obstruction, no free air. Patient is stable for discharge with Zofran for symptom management, follow-up with primary care. Time of Reevaluation #2: 14:31 Reevaluation #2: Patient recheck, she has had no further episodes of diarrhea is tolerating oral intake. Discussed findings on CT scan patient is stable for discharge. She is still little bit tachycardic and additional fluids will be given prior to discharge. Vital Signs Vital signs: Initial Vital Signs Temperature 98.1 F 04/14/23 11:27 Temperature Source Temporal Artery Scan 04/14/23 11:27 Pulse Rate 116 H 04/14/23 11:27 Pulse Rhythm Regular 04/14/23 11:27 Respiratory Rate 24 04/14/23 11:27 Blood Pressure 136/89 04/14/23 11:27 Blood Pressure Mean 104 04/14/23 11:27 Blood Pressure Position Supine 04/14/23 11:27 Pulse Oximetry 97 04/14/23 11:27 Oxygen Delivery Method Room Air 04/14/23 11:27 Vital Signs Temperature 98.1 F 04/14/23 11:27 Pulse Rate 116 H 04/14/23 11:27 Respiratory Rate 24 04/14/23 11:27 Blood Pressure 136/89 04/14/23 11:27 Pulse Oximetry 97 04/14/23 11:27 Oxygen Delivery Method Room Air 04/14/23 11:27 Temperature 98.1 F 04/14/23 11:27 Pulse Rate 116 H 04/14/23 11:27 Respiratory Rate 24 04/14/23 11:27 Blood Pressure 136/89 04/14/23 11:27 Pulse Oximetry 97 04/14/23 11:27 Oxygen Delivery Method Room Air 04/14/23 11:27 Medical Decision Making Medical Records Medical records reviewed: Yes I reviewed the patient's medical records Lab Data Lab results reviewed: Yes I reviewed the patient's lab results Labs: Lab Results 04/14/23 04/14/23 Range/Units 12:22 12:25 WBC 5.84 (4.50-11.00) K/uL RBC 5.27 H (4.00-5.20) m/uL Hgb 15.1 (12.0-16.0) gm/dL Hct 44.7 (33.0-51.0) % MCV 85 (80-100) fL MCH 29 (26-34) pg MCHC 34 (32-36) gm/dL RDW Coeff of Suman 12.4 (11.5-15.5) % Plt Count 304 (140-440) K/uL Neut % (Auto) 82.5 H (42.0-72.0) % Lymph % (Auto) 7.7 L (20-44) % [place] % (Auto) 9.6 (0.0-11.0) % Eos % (Auto) 0.0 (0.0-7.0) % Baso % (Auto) 0.0 (0.0-3.0) % Neut # (Auto) 4.80 (1.7-7.0) K/uL Lymph # (Auto) 0.40 L (0.90-2.90) K/uL [place] # (Auto) 0.60 (0.00-0.90) K/UL Eos # (Auto) 0.00 (0.00-0.50) K/uL Baso # (Auto) 0.00 (0.00-0.30) K/uL Abs Immat Gran (auto) 0.01 (0.00-0.30) K/uL Imm/Tot Granulo (auto) 0.2 % Sodium 135 (135-149) mmol/L Potassium 3.5 L (3.6-5.1) mmol/L Chloride 104 (96-114) mmol/L Carbon Dioxide 23 (20-32) mmol/L BUN 16 (7-30) mg/dL Creatinine 0.7 (0.5-1.5) mg/dL Estimated Creat Clear 72.66 Estimated GFR 103 ml/min Glucose 119 H (60-115) mg/dL Lactate 1.2 (0.5-1.9) mmol/L Calcium 8.6 (8.4-10.6) mg/dL Magnesium 1.4 L (1.5-2.6) mg/dL Total Bilirubin 0.8 (0.1-1.5) mg/dL Direct Bilirubin 0.1 (0.0-0.5) mg/dL AST 45 H (12-35) U/L ALT 45 H (4-35) U/L Alkaline Phosphatase 106 (40-150) U/L Total Protein 8.0 (6.0-8.3) g/dL Albumin 4.3 (3.3-5.0) g/dL Lipase 51 (23-300) U/L SARS-CoV-2 (PCR) Negative SARS-CoV-2 (Negative) Influenza Type A (PCR) Negative PCR FLU A (Negative) Influenza Type B (PCR) Negative PCR FLU B (Negative) RSV (PCR) Negative PCR RSV (Negative) Discharge Plan Discharge Clinical Impression: Acute dyspnea, Abdominal pain, vomiting, and diarrhea, Hypomagnesemia Patient Disposition: Home, Self-Care Condition: Stable Instructions: Gastroenteritis (DC) Prescriptions: No Action venlafaxine 75 mg capsule,extended release 24hr 75 mg PO QAM Qty: 90 3RF omeprazole 40 mg capsule,delayed release(DR/EC) 40 mg PO QDAY Qty: 90 3RF Follow Up/Referrals: Ailin Box MD [Primary Care Provider] - Stand Alone Forms: MyHealth Info Instructions
--- NOTE | 2023-04-14 12:06 | CRLHL7_ITS ---
For Patients: As a result of the 21st Century Cures Act, medical imaging exams and procedure reports are released immediately into your electronic medical record. You may view this report before your referring provider. If you have questions, please contact your health care provider. CLINICAL INFORMATION: Shortness of breath, fever, history of pneumonia. Abdominal pain. TECHNIQUE: Contrast-enhanced CT of the chest, abdomen and pelvis was obtained in pulmonary arterial phase through the chest and venous phase through the abdomen and pelvis. Coronal and sagittal reformatted images were obtained. Contrast: 95 mL of Isovue 370 intravenous contrast was injected uneventfully prior to image acquisition. Radiation Dose Estimate (Total Exam DLP): 1050 mGy-cm. COMPARISON: CT angiogram chest 10/18/2022. FINDINGS: Chest: Thyroid: Visualized portions are symmetric. Lungs: Near complete interval resolution of previously seen consolidative opacity in the left upper lobe and lingula. Residual reticulonodular streaky opacities likely represent areas of subsegmental atelectasis and/or scarring. Heart/Pericardium: Heart normal in size. No pericardial effusion. Pulmonary artery: Main pulmonary artery normal in caliber. No filling defects to suggest pulmonary embolism. Lymph Nodes: No significant axillary, mediastinal, or hilar lymphadenopathy. Abdomen/Pelvis: Liver: Unremarkable. Gallbladder: Unremarkable. Spleen: Unremarkable. Adrenal glands: Unremarkable. Kidneys: Unremarkable. Pancreas: Unremarkable. Lymph nodes: Mildly prominent mesenteric lymph nodes with fat stranding along the mesenteric root most pronounced in the left mid abdomen (series 2, image 62). Vascular: Abdominal aorta normal in caliber. Bowel: No bowel obstruction. No discrete evidence of enteritis or colitis. Colonic diverticula. Urinary bladder: Limited evaluation due to underdistention. No gross pathology. Reproductive structures: Unremarkable for patient`s age. No abdominal/pelvis ascites or free intraperitoneal air. Musculoskeletal: Visualized osseous structures demonstrate diffuse degenerative changes. IMPRESSION: 1. No acute findings in the chest, abdomen, and pelvis. 2. No pulmonary embolism. 3. Near complete interval resolution of previously seen consolidative opacity in the left upper lobe and lingula. 4. Mildly prominent mesenteric lymph nodes with fat stranding along the mesenteric root. Findings are nonspecific and can be seen in the setting of entity such as sclerosing mesenteritis. Please note that all CT scans at this facility use dose modulation, iterative reconstruction, and/or weight-based dosing when appropriate to reduce radiation dose to as low as reasonably achievable. Dictated by Beau rBewster MD @ 04/14/2023 2:04:56 PM (Electronically Signed)
[2023-04-14] MEDS: 0.9 % SODIUM CHLORIDE 1000 ml 1,000 ML IV (12:35)
[2023-04-14] MEDS: ONDANSETRON 2 MG/ML inj 4 MG IVP (12:35)
[2023-04-14 12:39] LABS: Lactate* 1.2 mmol/L (0.5-1.9)
[2023-04-14 12:42] LABS: Hematocrit 44.7 % (33.0-51.0); Hemoglobin* 15.1 gm/dL (12.0-16.0); Immature Granulocytes Abs Auto 0.01 K/uL (0.00-0.30); Immature Granulocytes Pct Auto 0.2 %; Lymphocytes Percent Auto 7.7 % (20-44); Mean Corpuscular HGB Conc 34 gm/dL (32-36); Mean Corpuscular Hemoglobin 29 pg (26-34); Mean Corpuscular Volume 85 fL (80-100); Monocytes Percent Auto 9.6 % (0.0-11.0); Neutrophils Percent Auto 82.5 % (42.0-72.0); Platelet Count* 304 K/uL (140-440); RDW Coefficient of Variation % 12.4 % (11.5-15.5); Red Blood Count 5.27 m/uL (4.00-5.20); White Blood Count* 5.84 K/uL (4.50-11.00)
[2023-04-14 12:44] LABS: Slide Review Reflex No
[2023-04-14 12:59] LABS: Albumin* 4.3 g/dL (3.3-5.0); Chloride* 104 mmol/L (96-114); Potassium* 3.5 mmol/L (3.6-5.1); Sodium* 135 mmol/L (135-149)
[2023-04-14 13:01] LABS: Creatinine* 0.7 mg/dL (0.5-1.5); Est. Creatinine Clearance* 72.66; Estimated Glomerular Filt Rate 103 ml/min
[2023-04-14 13:02] LABS: Alanine Aminotransferase* 45 U/L (4-35); Alkaline Phosphatase* 106 U/L (40-150); Aspartate Amino Transferase* 45 U/L (12-35); Bilirubin Direct* 0.1 mg/dL (0.0-0.5); Bilirubin Total* 0.8 mg/dL (0.1-1.5); Blood Urea Nitrogen* 16 mg/dL (7-30); Calcium* 8.6 mg/dL (8.4-10.6); Carbon Dioxide* 23 mmol/L (20-32); Glucose* 119 mg/dL (60-115); Lipase* 51 U/L (23-300); Magnesium* 1.4 mg/dL (1.5-2.6)
--- OUTSIDE RECORDS SUMMARY | 2023-04-14 13:12 | XMS_ITS | Continuity of Care Document ---
Author Name Unknown Organization [facility] Address [address] [place] [address] Phone Care Team Providers Care Block Sealer Name Role Phone Artemio Galaviz MD Unavailable Unavailable Allergies, Adverse Reactions, Alerts Substance Reaction Status Criticality PENICILLIN anaphalaxis Active No Information Medications Medication Instructions Dosage Effective Dates (start - stop) Status Comments Mobic 7.5 mg tablet take 1 tablet by oral route every day 7.5 MG - Active OMEPRAZOLE (unknown strength) Not Available - Active Mobic 7.5 mg tablet take 1 tablet by oral route every day 7.5 MG - No Longer Active cyclobenzaprine 10 mg tablet take 1 by Oral route once TID 1 - No Longer Active Procedures Procedure Date Office/Outpatient Visit,[facility] 2017 Advance Directives Directive Yes / No Effective Date File Name No Information Encounters Encounter Description Practice Location Reason(s) For Visit Diagnoses Date Provider Providers Copied on Encounter [facility], [address], [place], [id number], [place] tel:[phone] [facility] No Information Anastacia Ulloa. [facility], [address], [address], [place], [id number], [place]. tel:[phone] [facility], [address], [place], [id number], [place] tel:[phone] [facility] No Information Igor Pittman. [facility], [address], [place], [address], [place]. tel:[phone] Office/Outpat ient Visit,[place], [place] [facility], [address], [place], [place], [id number], [place] tel:[phone] [facility] Other spondylosis, cervical region Isauro Dwyer. [facility], [address], [place], [place], [id number], [place]. tel:[phone] Referring Provider: Marlo Carrasco , [facility] [address], [place], [address]. tel:[phone] Family History Family Member Type Diagnosis Age At Onset No Information Payers Payer name Insurance type Covered libertarian ID Wil sorenson(s) [facility] [id number] [facility] [id number] [place] [id number] Social History Type Description Quantity Date Captured Comments Sex Female Smoking Status No Information Chief Complaint And Reason For Visit No Information Reason For Referral Reason For Referral No Information History Of Present Illness Encounter Date Complaint History Of Prese nt Illness No Information Functional Status Date Functional Assessmen t No Information Instructions Date Instruction Additional Infor mation No Information Assessments Type Assessment Date No Information Patient Care Teams Name Effective Dates (start - stop) Status Members No Information
[2023-04-14 13:15] LABS: PCR FLU A Negative PCR FLU A (Negative); PCR FLU B Negative PCR FLU B (Negative); PCR RSV Negative PCR RSV (Negative)
[2023-04-14 13:23] LABS: SARS PCR* Negative SARS-CoV-2 (Negative)
[2023-04-14] MEDS: MAGNESIUM IV 2 GM/50 ML PIGGYBACK IVPB (15:09)
[2023-04-14] MEDS: 0.9 % SODIUM CHLORIDE 1000 ml 1,000 ML 6000 ML IV (15:10)
[2023-04-14 15:24] LABS: Appearance Urine Clear (Clear); Bilirubin Urine Negative (Negative); Blood Urine Trace-intact (Negative); Color Urine Yellow (Yellow); Glucose Urine Negative (Negative); Ketones Urine Trace (Negative); Leukocyte Esterase Urine Negative (Negative); Nitrite Urine Negative (Negative); Protein Urine Negative (Negative); Specific Gravity Urine <= 1.005 (1.000-1.030); Urobilinogen Urine 0.2 (0.2-1.0); pH Urine 5.5 (5.0-8.5)
[2023-04-14 15:35] LABS: RBC Urine 0-2 (0-2); Squamous Epithelial Cell Urine Few (None-Few); WBC Urine 0-2 (0-5)
[2023-04-14] MEDS: ACETAMINOPHEN 500 MG TABLET 1000 MG PO (16:36)
[2023-04-14 19:35] LABS: C.Difficile Negative (Negative); CDIFFEPI 027 PRESUMPTIVE NEGATIVE (Negative)
== END 2023-04-14 16:52 | disposition home or self-care (01) ==
PROVIDERS: Emergency Provider Family Medicine; PCP Family Medicine
DX: R06.00 Dyspnea, unspecified (principal); R10.9 Unspecified abdominal pain; R11.10 Vomiting, unspecified; R19.7 Diarrhea, unspecified; E83.42 Hypomagnesemia
CPT/HCPCS: 36415; 71275; 74177; 80048; 80076; 81001; 82803; 83605; 83690; 83735; 85025; 87045; 87046; 87427; 87493; 87631; 96365; 96375; 99284; 99285; A9270; J2405; J3475; J7030; Q9967

== ENCOUNTER 2023-12-28 05:59 | Emergency (ER) | payer OTHER, SELFPAY ==
[2023-12-28 06:15] VITALS: BP 132/82; PULSE 124; RESP 30; TEMP 37.4; O2SAT 96; BMI 34.8
--- NOTE | 2023-12-28 06:19 | XR_ITS ---
Patient: PERLITA TAVAREZ Facility:?[facility] Patient ID:?[id number] Site Patient ID:?[id number] Site :?[id number] Study:?XRay-Chest 1V PORTABLE-12/28/2023 6:37:24 AM Ordering Physician:LUKE Final Report: Indication: Cough and shortness of breath Comparison: Two-view chest April 11, 2023 Technique: Single AP view chest Findings: There is hyperinflation and chronic interstitial change. Mildly increased interstitial markings with questionable developing airspace opacity within the peripheral left upper lobe. No pneumothorax or pleural effusion. The cardiomediastinal silhouette is within normal limits. The bony thorax is grossly intact. Impression: Subtle airspace opacity along the peripheral inferior left upper lobe which may represent developing infiltrate. Dictated by Joe Aparicio MD @ 12/28/2023 6:54:13 AM Signed by:?Joe Aparicio MD @12/28/2023 6:54:13 AM (Electronic Signature)
[2023-12-28 06:31] VITALS: O2SAT 92
[2023-12-28 06:32] VITALS: BP 129/58; PULSE 120; O2SAT 93
[2023-12-28 06:33] VITALS: PULSE 125; O2SAT 96
[2023-12-28 06:56] LABS: PCR FLU A Negative PCR FLU A (Negative); PCR FLU B Negative PCR FLU B (Negative); PCR RSV Negative PCR RSV (Negative); SARS PCR* Negative SARS-CoV-2 (Negative)
[2023-12-28 07:00] VITALS: PULSE 114; O2SAT 92
--- NOTE | 2023-12-28 07:00 | ED.GENADULT ---
HPI - General Adult General Chief complaint: Cough Stated complaint: fever,,chills,headache Time Seen by Provider: 12/28/23 06:28 Source: patient and family Mode of arrival: ambulatory Limitations: no limitations History of Present Illness HPI narrative: 53-year-old female with history of sarcoidosis and complicated pneumonia last year presents to the ED for evaluation of cough, fever and chills. Symptoms started 36 hours ago, initially with body aches. Now is having cough with slight blood-tinged sputum. Fever over 100 at home. Does not feel overly short of breath but is noted to be mildly tachypneic here in the ED. require transfer for drainage of what sounds like an empyema last year. Family documenting that it had to be treated with a chest tube at [place]. No vomiting, no dysuria no skin rashes or other sites of potential infection. No wheezing. Does have a history of sarcoidosis but is not on immunosuppressants. No known sick contacts. Has not tried any other interventions at home prior to coming to ED. does report prior history of DVT. But it is unclear from the notes that this was a deep or superficial venous thrombus after a vein procedure. History would suggest superficial. Past medical history notable for sarcoidosis. She also takes venlafaxine for hot flashes and omeprazole for GERD. No prior history of abdominal surgeries. Chest tube last year as described. ROS notable for the respiratory and generalized symptoms as above, otherwise denies times 12 systems. Related Data Previous Rx's Medication Instructions Recorded venlafaxine 75 mg capsule,extended 75 mg PO QAM #90 caps 01/08/23 release 24 hr omeprazole 40 mg capsule,delayed 40 mg PO QDAY #90 caps 05/28/23 release azithromycin 500 mg tablet 500 mg PO DAILY 5 days #5 tabs 12/28/23 cefuroxime axetil 500 mg tablet 500 mg PO Q12H #20 tabs 12/28/23 prednisone 20 mg tablet 20 mg PO DAILY #4 tabs 12/28/23 Allergies Allergy/AdvReac Type Severity Reaction Status Date / Time amoxicillin [From Augmentin] Allergy Intermediate Hives, Verified 12/28/23 06:18 Short of Breath clavulanic acid Allergy Intermediate Hives, Verified 12/28/23 06:18 [From Augmentin] Short of Breath penicillin V Allergy Mild Hives Verified 12/28/23 06:18 Penicillins Allergy Mild Hives Verified 12/28/23 06:18 [facility] Medical History Finger injury ?S69.90XA - Unspecified injury of unspecified wrist, hand and finger(s), initial encounter (ICD-10) Pneumonia ?J18.9 - Pneumonia, unspecified organism (ICD-10) Pneumococcal bacteremia ?R78.81 - Bacteremia (ICD-10) ?B95.3 - Streptococcus pneumoniae as the cause of diseases classified elsewhere (ICD-10) Superficial thrombosis of left lower extremity ?I82.812 - Embolism and thrombosis of superficial veins of left lower extremity (ICD-10) Sleep apnea ?G47.30 - Sleep apnea, unspecified (ICD-10) Right leg DVT ?I82.401 - Acute embolism and thrombosis of unspecified deep veins of right lower extremity (ICD-10) Enlargement of lymph nodes ?R59.9 - Enlarged lymph nodes, unspecified (ICD-10) JEROMY (stress urinary incontinence, female) ?N39.3 - Stress incontinence (female) (male) (ICD-10) Genital herpes ?A60.00 - Herpesviral infection of urogenital system, unspecified (ICD-10) Postmenopausal syndrome ?N95.1 - Menopausal and female climacteric states (ICD-10) GERD without esophagitis ?K21.9 - Gastro-esophageal reflux disease without esophagitis (ICD-10) Sarcoidosis ?D86.9 - Sarcoidosis, unspecified (ICD-10) COVID-19 ?U07.1 - COVID-19 (ICD-10) Surgical History History of bronchoscopy (12/22/07) ?Z98.890 - Other specified postprocedural states (ICD-10) History of tubal ligation ?Z98.51 - Tubal ligation status (ICD-10) History of removal of cyst ?Z98.890 - Other specified postprocedural states (ICD-10) History of colonoscopy ?Z98.890 - Other specified postprocedural states (ICD-10) History of appendectomy (1986) ?Z90.49 - Acquired absence of other specified parts of digestive tract (ICD-10) Family History Father Diabetes High blood pressure High cholesterol Stroke Heart disease Alcohol dependence Mother Lymphoma High cholesterol Brother High cholesterol Grandmother Diabetes Maternal Grandmother No problems noted. 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 . Nonsmoker. 2-4 alcoholic beverages every other week. No recreational drugs. Does not exercise regularly. No concerns with safety or abuse. Smoking Status: Never smoker Do you use any of these nicotine containing products: None Second hand tobacco smoke exposure: No How often do you have a drink containing alcohol: 2-4 times a month How many standard drinks containing alcohol do you have on a typical day: 1 or 2 How often do you have six or more drinks on one occasion: Monthly AUDIT-C Alcohol total score: 4 Non-prescribed substance use: denies use Little interest or pleasure in doing things: not at all Feeling down, depressed, or hopeless: not at all service: No Exam Const: Vital Signs, click to edit/add: Vital Signs - 24 hr 12/28/23 06:15 12/28/23 06:31 12/28/23 06:32 Temperature 99.4 F Pulse Rate 120 H Pulse Rate [Pulse Oximeter] 124 H Respiratory Rate 30 H Blood Pressure 129/58 L Blood Pressure [Ri ght Upper Arm] 132/82 Pulse Oximetry 96 92 93 Oxygen Delivery Me thod Room Air 12/28/23 06:33 12/28/23 07:00 12/28/23 07:01 Temperature Pulse Rate 125 H 114 H 114 H Pulse Rate [Pulse Oximeter] Respiratory Rate Blood Pressure 132/84 Blood Pressure [Ri ght Upper Arm] Pulse Oximetry 96 92 94 Oxygen Delivery Me thod Documenting provider has reviewed patient's vital signs: yes Common normals: no apparent distress General appearance: cooperative and well kempt Other: Mildly tachypneic but can speak in full sentences. Good historian. HENMT: Common normals: normocephalic, moist oral mucous membranes and oropharynx normal Head and scalp: normocephalic Mouth: oral and palatal mucosa normal Eye: Common normals: conjunctivae normal General eye: normal appearance of both eyes Conjunctiva: conjunctiva(e) normal Neck & C-Spine: Common normals: full ROM Other: Mild anterior cervical and submandibular lymphadenopathy Resp: Common normals: normal respiratory effort, no use of accessory muscles and clear to auscultation bilaterally Effort & inspection: able to speak in complete sentences Auscultation: clear to auscultation bilaterally Other: Breath sounds are decreased but do sound clear Cardio: Common normals: regular rate, regular rhythm, S1 normal heart sound, S2 normal heart sound and no murmurs Rate: regular rate Rhythm: regular rhythm Heart sounds: S1 normal and S2 normal GI: Common normals: Normal to inspection, nondistended, normoactive bowel sounds present, soft to palpation, non-tender, no hepatosplenomegaly and no masses Palpation: soft and no hepatosplenomegaly Extremity: Common normals: normal to inspection and normal capillary refill Neuro: Speech: speech normal Motor exam: no movement abnormalities noted Psych: Appearance: well kempt Attitude: engaged Mood and affect: euthymic mood Insight: insight good Judgement: judgment good Skin: Common normals: no rashes or lesions noted General skin exam: no rashes or lesions noted Course Course ED Course: Febrile 53-year-old with complicated respiratory history presenting with cough and sputum suspicious for pneumonia. Chest x-ray returned prior to my initial assessment does appear to be a left-sided pneumonia. Will obtain basic labs, blood culture viral swabs. Based on x-ray, will begin Rocephin and azithromycin. Tolerated Zosyn but not Augmentin according to notes from last year, these are reviewed. I do not see any signs of focal consolidation on the chest x-ray that would warrant doing a CT. No hypoxic respiratory failure. Await lab findings but I think she may be able to be treated outpatient if antibiotics are started in time. Reevaluation(s) Time of Reevaluation #1: 08:11 Reevaluation #1: Updated patient on labs and findings, early pneumonia. Respiratory rate is 16-18 for me in the room. Still not require any oxygen. All of her lab results and imaging results were reviewed. Antibiotics are still infusing. Will also add prednisone 20 mg once daily. I think it is reasonable to discharge with outpatient antibiotics. She is very reliable for follow-up. We discussed the risks and benefits of this and she is in agreement. Will treat with cefdinir 300 twice daily, azithromycin 500 mg once daily and prednisone 20 mg once daily just for 5 days. Alarm symptoms reviewed that would warrant earlier ED follow-up. She verbalizes understanding and agreement of plan. Vital Signs Vital signs: Initial Vital Signs Temperature 99.4 F 12/28/23 06:15 Temperature Source Temporal Artery Scan 12/28/23 06:15 Pulse Rate 124 H 12/28/23 06:15 Pulse Rhythm Regular 12/28/23 06:15 Pulse Strength 3+ Normal 12/28/23 06:15 Respiratory Rate 30 H 12/28/23 06:15 Blood Pressure 132/82 12/28/23 06:15 Blood Pressure Mean 98 12/28/23 06:15 Blood Pressure Position Sitting 12/28/23 06:15 Pulse Oximetry 96 12/28/23 06:15 Oxygen Delivery Method Room Air 12/28/23 06:15 Vital Signs Temperature 99.4 F 12/28/23 06:15 Pulse Rate 124 H 12/28/23 06:15 Respiratory Rate 30 H 12/28/23 06:15 Blood Pressure 132/82 12/28/23 06:15 Pulse Oximetry 96 12/28/23 06:15 Oxygen Delivery Method Room Air 12/28/23 06:15 Temperature 99.4 F 12/28/23 06:15 Pulse Rate 114 H 12/28/23 07:01 Respiratory Rate 30 H 12/28/23 06:15 Blood Pressure 132/84 12/28/23 07:01 Pulse Oximetry 94 12/28/23 07:01 Oxygen Delivery Method Room Air 12/28/23 06:15 Medications Administered Medications: Generic Name Dose Route Start Last Admin Trade Name Freq PRN Reason Stop Dose Admin Sodium Chloride 1,000 mls @ 1,000 mls/hr 12/28/23 07:27 12/28/23 07:47 0.9 % Sodium Chloride 1000 Ml IV 12/28/23 08:26 1,000 mls/hr .Q1H MERNA Administration Discontinued Medications Generic Name Dose Route Start Last Admin Trade Name Freq PRN Reason Stop Dose Admin Acetaminophen 1,000 mg 12/28/23 07:26 12/28/23 07:47 Acetaminophen 500 Mg Tablet PO 12/28/23 07:27 1,000 mg ONCE ONE Administration Ceftriaxone Sodium 1 gm/ 100 mls @ 200 mls/hr 12/28/23 06:54 12/28/23 07:47 Sodium Chloride IVPB 12/28/23 06:55 200 mls/hr ONCE ONE Administration Medical Decision Making Lab Data Lab results reviewed: Yes I reviewed the patient's lab results Lab results narrative: Leukocytosis with excellent hemoglobin. Left shift. Blood gases look great. Good electrolytes. Liver functions stable from outpatient. Viral swabs negative. Lactate negative. Labs: Lab Results 12/28/23 12/28/23 Range/Units 06:10 07:08 WBC 16.85 H (4.50-11.00) K/uL RBC 4.85 (4.00-5.20) m/uL Hgb 14.1 (12.0-16.0) gm/dL Hct 42.5 (33.0-51.0) % MCV 88 (80-100) fL MCH 29 (26-34) pg MCHC 33 (32-36) gm/dL RDW Coeff of Suman 12.3 (11.5-15.5) % Plt Count 274 (140-440) K/uL Neut % (Auto) 86.7 H (42.0-72.0) % Lymph % (Auto) 4.6 L (20-44) % [place] % (Auto) 7.7 (0.0-11.0) % Eos % (Auto) 0.7 (0.0-7.0) % Baso % (Auto) 0.1 (0.0-3.0) % Neut # (Auto) 14.60 H (1.7-7.0) K/uL Lymph # (Auto) 0.80 L (0.90-2.90) K/uL [place] # (Auto) 1.30 H (0.00-0.90) K/UL Eos # (Auto) 0.10 (0.00-0.50) K/uL Baso # (Auto) 0.00 (0.00-0.30) K/uL Abs Immat Gran (auto) 0.00 (0.00-0.30) K/uL Imm/Tot Granulo (auto) 0.2 % VBG pH 7.419 (7.32-7.43) VBG pCO2 40 (40-50) mmHG VBG pO2 41.8 (25-47) mmHG VBG HCO3 26 (21-28) mmol/L Sodium 138 (135-149) mmol/L Potassium 3.5 L (3.6-5.1) mmol/L Chloride 102 (96-114) mmol/L Carbon Dioxide 25 (20-32) mmol/L Anion Gap 11 (7-15) mEq/L BUN 9 (7-30) mg/dL Creatinine 0.7 (0.5-1.5) mg/dL Estimated Creat Clear 71.82 Estimated GFR 102 ml/min Glucose 118 H (60-115) mg/dL Lactate 1.0 (0.5-1.9) mmol/L Calcium 9.0 (8.4-10.6) mg/dL Total Bilirubin 0.8 (0.1-1.5) mg/dL AST 53 H (12-35) U/L ALT 59 H (4-35) U/L Alkaline Phosphatase 140 (40-150) U/L Total Protein 8.5 H (6.0-8.3) g/dL Albumin 4.3 (3.3-5.0) g/dL SARS-CoV-2 (PCR) Negative SARS-CoV-2 (Negative) Influenza Type A (PCR) Negative PCR FLU A (Negative) Influenza Type B (PCR) Negative PCR FLU B (Negative) RSV (PCR) Negative PCR RSV (Negative) Imaging Data Chest x-ray: Attestation: I have reviewed the pertinent imaging results. My impression: Left mid lung field consolidation suspicious for pneumonia Radiologist's impression: Impression: Subtle airspace opacity along the peripheral inferior left upper lobe which may represent developing infiltrate. Discharge Plan Discharge Clinical Impression: Left upper lobe pneumonia Patient Disposition: Home w/ Parent or Adult Condition: Stable Instructions: Community Acquired Pneumonia (ED) Additional Instructions: As we discussed, there are no signs of sepsis or respiratory failure today. I do think that your symptoms are from an early pneumonia. Viral swabs were negative. It looks like we are catching things early enough that we should be able to treat things outpatient. You were given IV antibiotics to help kick start treatment. I have also started you on some prednisone to help with inflammation. 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 The cefdinir is your main antibiotic and is taken twice daily. You will take your 1st dose of this medication this evening. Tomorrow morning, you will take all 3 medications, the cefdinir, the prednisone, and azithromycin. Take the cefdinir again tomorrow evening, continuing with that when twice daily, the others once daily until gone. You will finish the prednisone and azithromycin before the cefdinir. The antibiotics do start to kick in within a couple of days but it will take a couple of weeks to get full relief. You may have some persistent cough for up to a month. If he start getting sicker, feel very weak, have persistently high fevers or other signs of worsening, please come back to the emergency department. As we discussed, some bodies handle infection differently and this cannot always be predicted. Activity Level: Activity as Tolerated Discharge Diet: Regular Prescriptions: New prednisone 20 mg tablet 20 mg PO DAILY Qty: 4 0RF Rx Instructions: Once daily in the morning with food azithromycin 500 mg tablet 500 mg PO DAILY 5 Days Qty: 5 0RF Rx Instructions: Once daily in the morning with food cefuroxime axetil 500 mg tablet 500 mg PO Q12H Qty: 20 0RF Rx Instructions: twice daily antibiotic for pneumonia. first dose 12/27 evening No Action venlafaxine 75 mg capsule,extended release 24hr 75 mg PO QAM Qty: 90 3RF omeprazole 40 mg capsule,delayed release(DR/EC) 40 mg PO QDAY Qty: 90 3RF Follow Up/Referrals: Ailin oBx MD [Primary Care Provider] - Stand Alone Forms: [employer] Instructions
[2023-12-28 07:01] VITALS: BP 132/84; PULSE 114; O2SAT 94
[2023-12-28 07:23] LABS: HCO3 VBG 26 mmol/L (21-28); PCO2 VBG 40 mmHG (40-50); PO2 VBG 41.8 mmHG (25-47); pH VBG 7.419 (7.32-7.43)
[2023-12-28 07:24] LABS: Basophils Percent Auto 0.1 % (0.0-3.0); Eosinophils Percent Auto 0.7 % (0.0-7.0); Hematocrit 42.5 % (33.0-51.0); Hemoglobin* 14.1 gm/dL (12.0-16.0); Immature Granulocytes Pct Auto 0.2 %; Lymphocytes Percent Auto 4.6 % (20-44); Mean Corpuscular HGB Conc 33 gm/dL (32-36); Mean Corpuscular Hemoglobin 29 pg (26-34); Mean Corpuscular Volume 88 fL (80-100); Monocytes Percent Auto 7.7 % (0.0-11.0); Neutrophils Percent Auto 86.7 % (42.0-72.0); Platelet Count* 274 K/uL (140-440); RDW Coefficient of Variation % 12.3 % (11.5-15.5); Red Blood Count 4.85 m/uL (4.00-5.20); White Blood Count* 16.85 K/uL (4.50-11.00)
[2023-12-28 07:29] LABS: Slide Review Reflex No
[2023-12-28 07:38] LABS: Chloride* 102 mmol/L (96-114)
[2023-12-28 07:39] LABS: Albumin* 4.3 g/dL (3.3-5.0); Potassium* 3.5 mmol/L (3.6-5.1); Sodium* 138 mmol/L (135-149)
[2023-12-28 07:41] LABS: Creatinine* 0.7 mg/dL (0.5-1.5); Est. Creatinine Clearance* 71.82; Estimated Glomerular Filt Rate 102 ml/min
[2023-12-28 07:42] LABS: Alanine Aminotransferase* 59 U/L (4-35); Alkaline Phosphatase* 140 U/L (40-150); Anion Gap 11 mEq/L (7-15); Aspartate Amino Transferase* 53 U/L (12-35); Bilirubin Total* 0.8 mg/dL (0.1-1.5); Blood Urea Nitrogen* 9 mg/dL (7-30); Carbon Dioxide* 25 mmol/L (20-32); Glucose* 118 mg/dL (60-115); Total Protein* 8.5 g/dL (6.0-8.3)
[2023-12-28] MEDS: 0.9 % SODIUM CHLORIDE 1000 ml 1,000 ML IV (07:47)
[2023-12-28] MEDS: ACETAMINOPHEN 500 MG TABLET 1000 MG PO (07:47)
[2023-12-28] MEDS: cefTRIAXone 1 GM in 0.9 % SODIUM CHLORIDE Mini-bag 100 ML IVPB (07:47)
[2023-12-28] MEDS: AZITHROMYCIN 500 MG in 0.9 % SODIUM CHLORIDE 250 ml 250 ML 255 MG IVPB (08:17)
[2023-12-28] MEDS: predniSONE 10 MG TABLET 20 MG PO (08:18)
== END 2023-12-28 09:26 | disposition home or self-care (01) ==
PROVIDERS: Emergency Provider Family Medicine; PCP Family Medicine
DX: J18.9 Pneumonia, unspecified organism (principal)
CPT/HCPCS: 36415; 71045; 80053; 81003; 82803; 83605; 85025; 87040; 87631; 94761; 96365; 96375; 99284; A9270; J0456; J0696; J7030; J7050; J7512

== ENCOUNTER 2024-01-10 17:06 | Emergency (ER) | payer OTHER, SELFPAY ==
[2024-01-10 17:28] VITALS: BP 136/92; PULSE 95; RESP 20; TEMP 37.1; O2SAT 95; BMI 34.8
--- NOTE | 2024-01-10 17:33 | ED_ITS ---
HPI - General Adult General Chief complaint: Fever Stated complaint: Diag w/ pneumonia 2 wks ago- symptoms back Time Seen by Provider: 01/10/24 17:14 History of Present Illness HPI narrative: Pt here 12/27. Dx with pneumonia . Pt has hx of being hospitalized for PNA last year. Pt completed her abx for most recent pneumonia 1-2 days ago. Pt reports today, has increased acid reflux that caused her to vomit x 1 this morning. Notes over the last few days increase in fatigue and a headache. Temp @ home prior to coming to ER 100-101 per . Pt has not taken any tylenol or ibuprofen prior to arrival 33-year-old woman presenting to the emergency department with concern of recurrence of infection hand fatigue and headache. Reported an untreated fever measured between 100 and 101 prior to coming to the emergency department. Discontinued Prilosec for chronic heartburn/GERD when initiated on treatment for recent pneumonia. She did complete this treatment. She noted fairly quickly having increase in symptoms. Today much worse and vomited a couple of times this morning. Not really with worsening cough or shortness of breath. She has a temporal headache, pulsatile. Chronic posterior neck discomfort she acknowledges. 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 Related Data Previous Rx's ?Medication ?Instructions ?Recorded venlafaxine 75 mg capsule,extended 75 mg PO QAM #90 caps 01/08/23 release 24 hr omeprazole 40 mg capsule,delayed 40 mg PO QDAY #90 caps 05/28/23 release doxycycline hyclate 100 mg capsule 100 mg PO BID #28 caps 01/16/24 Allergies Allergy/AdvReac Type Severity Reaction Status Date / Time amoxicillin [From Augmentin] Allergy Intermediate Hives, Verified 01/15/24 15:49 Short of Breath clavulanic acid Allergy Intermediate Hives, Verified 01/15/24 15:49 [From Augmentin] Short of Breath penicillin V Allergy Mild Hives Verified 01/15/24 15:49 Penicillins Allergy Mild Hives Verified 01/15/24 15:49 Review of Systems Status of ROS: Reports: 6 or more systems reviewed and unremarkable except as noted in History and below [facility] Medical History Finger injury ?S69.90XA - Unspecified injury of unspecified wrist, hand and finger(s), initial encounter (ICD-10) Pneumonia ?J18.9 - Pneumonia, unspecified organism (ICD-10) Pneumococcal bacteremia ?R78.81 - Bacteremia (ICD-10) ?B95.3 - Streptococcus pneumoniae as the cause of diseases classified elsewhere (ICD-10) Superficial thrombosis of left lower extremity ?I82.812 - Embolism and thrombosis of superficial veins of left lower extremity (ICD-10) Sleep apnea ?G47.30 - Sleep apnea, unspecified (ICD-10) Right leg DVT ?I82.401 - Acute embolism and thrombosis of unspecified deep veins of right lower extremity (ICD-10) Enlargement of lymph nodes ?R59.9 - Enlarged lymph nodes, unspecified (ICD-10) JEROMY (stress urinary incontinence, female) ?N39.3 - Stress incontinence (female) (male) (ICD-10) Genital herpes ?A60.00 - Herpesviral infection of urogenital system, unspecified (ICD-10) Postmenopausal syndrome ?N95.1 - Menopausal and female climacteric states (ICD-10) GERD without esophagitis ?K21.9 - Gastro-esophageal reflux disease without esophagitis (ICD-10) Sarcoidosis ?D86.9 - Sarcoidosis, unspecified (ICD-10) COVID-19 ?U07.1 - COVID-19 (ICD-10) Surgical History History of bronchoscopy (12/22/07) ?Z98.890 - Other specified postprocedural states (ICD-10) History of tubal ligation ?Z98.51 - Tubal ligation status (ICD-10) History of removal of cyst ?Z98.890 - Other specified postprocedural states (ICD-10) History of colonoscopy ?Z98.890 - Other specified postprocedural states (ICD-10) History of appendectomy (1986) ?Z90.49 - Acquired absence of other specified parts of digestive tract (ICD- 10) Family History Father Diabetes High blood pressure High cholesterol Stroke Heart disease Alcohol dependence Mother Lymphoma High cholesterol Brother High cholesterol Grandmother Diabetes Maternal Grandmother No problems noted. 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 . Nonsmoker. 2-4 alcoholic beverages every other week. No recreational drugs. Does not exercise regularly. No concerns with safety or abuse. Smoking Status: Never smoker Do you use any of these nicotine containing products: None Second hand tobacco smoke exposure: No How often do you have a drink containing alcohol: 2-4 times a month How many standard drinks containing alcohol do you have on a typical day: 1 or 2 How often do you have six or more drinks on one occasion: Monthly AUDIT-C Alcohol total score: 4 Non-prescribed substance use: denies use Little interest or pleasure in doing things: more than half the days Feeling down, depressed, or hopeless: several days service: No Exam Narrative: Exam Narrative: Pleasant. NAD. Seems little flushed. Sounds a little congested. Oropharynx with mild erythema in the far posterior oropharynx. Neck is supple without lymphadenopathy. Sore to palpation at the by cervical and trapezial musculature. No stridor. Lungs are clear. Moving all extremities with good strength and without difficulty. Uncomfortable to palpation in the epigastrium. Const: Vital Signs, click to edit/add: Vital Signs - 24 hr 01/10/24 17:28 Temperature 98.7 F Pulse Rate [Pulse Oximeter] 95 Respiratory Rate 20 Blood Pressure [Ri ght Upper Arm] 136/92 H Pulse Oximetry 95 Oxygen Delivery Me thod Room Air Documenting provider has reviewed patient's vital signs: yes Course Vital Signs Vital signs: Initial Vital Signs Temperature 98.7 F 01/10/24 17:28 Temperature Source Temporal Artery Scan 01/10/24 17:28 Pulse Rate 95 01/10/24 17:28 Pulse Rhythm Regular 01/10/24 17:28 Pulse Strength 3+ Normal 01/10/24 17:28 Respiratory Rate 20 01/10/24 17:28 Blood Pressure 136/92 H 01/10/24 17:28 Blood Pressure Mean 106 H 01/10/24 17:28 Blood Pressure Position Sitting 01/10/24 17:28 Pulse Oximetry 95 01/10/24 17:28 Oxygen Delivery Method Room Air 01/10/24 17:28 Vital Signs Temperature 98.7 F 01/10/24 17:28 Pulse Rate 95 01/10/24 17:28 Respiratory Rate 20 01/10/24 17:28 Blood Pressure 136/92 H 01/10/24 17:28 Pulse Oximetry 95 01/10/24 17:28 Oxygen Delivery Method Room Air 01/10/24 17:28 Temperature 98.7 F 01/10/24 17:28 Pulse Rate 81 01/10/24 20:15 Respiratory Rate 16 01/10/24 20:01 Blood Pressure 137/85 01/10/24 20:01 Pulse Oximetry 95 01/10/24 20:15 Oxygen Delivery Method Room Air 01/10/24 17:28 Medications Administered Medications: Discontinued Medications Generic Name Dose Route Start Last Admin Trade Name Freq PRN Reason Stop Dose Admin Sodium Chloride 1,000 mls @ 1,000 mls/hr 01/10/24 18:08 01/10/24 19:30 0.9 % Sodium Chloride 1000 Ml IV 01/10/24 19:07 Infused .Q1H ONE Infusion Ketorolac Tromethamine 15 mg 01/10/24 18:08 01/10/24 18:36 Ketorolac 15 Mg/Ml Inj IVP 01/10/24 18:09 15 mg ONCE ONE Administration Lidocaine/Aluminum/Magnesium/Simeth 30 ml 01/10/24 19:39 01/10/24 20:10 Gi Cocktail (Visc Lido/Antacid) 30 Ml PO 01/10/24 19:40 30 ml ONCE ONE Administration Ondansetron HCl 4 mg 01/10/24 19:39 01/10/24 19:48 Ondansetron 2 Mg/Ml Inj IVP 01/10/24 19:40 4 mg ONCE ONE Administration Medical Decision Making [facility] Narrative Medical decision making narrative: Reynaldo could have had some recurrence of her pneumonia. Will recheck chest x-ray for this. Pneumothorax as well. With chest discomfort as described this might be cardiac in origin. Will check related labs here as well. May simply be reflux related exacerbated by recent antibiotics and discontinuation of PPI. Screen for pulmonary embolus. I think D-dimer would be sufficient here. Furthermore seems more infectious at with fever as described. Triple swab. She would like treatment for her headache. Initiating IV fluids and ketorolac. One-view portable chest x-ray reviewed by me looks to show resolution of prior suspected infiltrate. Radiology over-read is pending Labs are reassuring. Still with symptoms given GI cocktail and Zofran. This did help. See patient discharge plan for further discussion/plan Medical Records Medical records reviewed: Yes I reviewed the patient's medical records Lab Data Lab results reviewed: Yes I reviewed the patient's lab results Labs: Lab Results 01/10/24 01/10/24 Range/Units 17:30 18:30 WBC 8.52 (4.50-11.00) K/uL RBC 4.74 (4.00-5.20) m/uL Hgb 13.8 (12.0-16.0) gm/dL Hct 41.6 (33.0-51.0) % MCV 88 (80-100) fL MCH 29 (26-34) pg MCHC 33 (32-36) gm/dL RDW Coeff of Suman 11.9 (11.5-15.5) % Plt Count 349 (140-440) K/uL Neut % (Auto) 66.1 (42.0-72.0) % Lymph % (Auto) 24.8 (20-44) % [place] % (Auto) 7.4 (0.0-11.0) % Eos % (Auto) 1.3 (0.0-7.0) % Baso % (Auto) 0.4 (0.0-3.0) % Neut # (Auto) 5.64 (1.7-7.0) K/uL Lymph # (Auto) 2.11 (0.90-2.90) K/uL [place] # (Auto) 0.60 (0.00-0.90) K/UL Eos # (Auto) 0.11 (0.00-0.50) K/uL Baso # (Auto) 0.03 (0.00-0.30) K/uL Abs Immat Gran (auto) 0.00 (0.00-0.30) K/uL Imm/Tot Granulo (auto) 0.0 % Sodium 139 (135-149) mmol/L Potassium 4.0 (3.6-5.1) mmol/L Chloride 106 (96-114) mmol/L Carbon Dioxide 27 (20-32) mmol/L Anion Gap 6 L (7-15) mEq/L BUN 12 (7-30) mg/dL Creatinine 0.7 (0.5-1.5) mg/dL Estimated Creat Clear 71.82 Estimated GFR 102 ml/min Glucose 99 (60-115) mg/dL Calcium 9.0 (8.4-10.6) mg/dL Troponin I < 0.01 L (0.01-0.04) ng/mL C-Reactive Protein 0.9 (0.5-1.0) mg/dL NT-Pro-B Natriuret Pep 27 pg/mL SARS-CoV-2 (PCR) Negative SARS-CoV-2 (Negative) Influenza Type A (PCR) Negative PCR FLU A (Negative) Influenza Type B (PCR) Negative PCR FLU B (Negative) RSV (PCR) Negative PCR RSV (Negative) POC Troponin I 0.00 L (0.01-0.04) ng/ml ECG Data Attestation: I personally reviewed and interpreted this ECG as follows: (Normal sinus rhythm. Rate of 79. Somewhat low voltage. No ischemic changes appreciated) Discharge Plan Discharge Clinical Impression: Fever, Headache, Gastroesophageal reflux disease Patient Disposition: Home w/ Parent or Adult Condition: Improved Additional Instructions: Your workup here today is reassuring. Radiology has also reviewed your chest x- ray and as discussed, they concur that the infiltrate that was present before, looks to have resolved. I would consider also taking famotidine over the next week or 2 as you restart your pantoprazole/omeprazole. Happy to see you back if needed for marked increase in headache, intractable heartburn, increasing shortness of breath or associated fever. For now focus on hydration. Can take up to 1000 mg of acetaminophen per dose. Maybe with a little food could take ibuprofen as well. Prescriptions: No Action venlafaxine 75 mg capsule,extended release 24hr 75 mg PO QAM Qty: 90 3RF omeprazole 40 mg capsule,delayed release(DR/EC) 40 mg PO QDAY Qty: 90 3RF doxycycline hyclate 100 mg capsule 100 mg PO BID Qty: 28 0RF Follow Up/Referrals: Ailin Box MD [Primary Care Provider] - Stand Alone Forms: [employer] Info Instructions
--- OUTSIDE RECORDS SUMMARY | 2024-01-10 18:14 | XMS_ITS ---
Author Name Unknown Organization [facility] Address [address] [place] [address] Care Team Providers Care Ordnance Artificer Name Role Phone Unavailable Unavailable Unavailable Surgery Details Not on file Complications Check Surgery Details section. Procedure Estimated Blood Loss Check Surgery Details section. Procedure Findings Check Surgery Details section. Procedure Specimens Taken Check Surgery Details section.
--- OUTSIDE RECORDS SUMMARY | 2024-01-10 18:14 | XMS_ITS | Clinical Summary ---
Author Name Unknown Organization [facility] Address [place], [place] [address] Care Team Providers Care Technical Documentation Specialist Name Role Phone DarciCathy MD Unavailable [facility] Primary Care Provider Unavailabl e Allergies Active Allergy Reactions Criticality Noted Date Comments Penicillins 11/04/2006 Medications Medication Sig Dispensed Refills Start Date End Date Status meloxicam (MOBIC) 7.5 mg tablet Take 7.5 mg by mouth once daily. 0 09/21/2018 Active omeprazole (PRILOSEC) 40 mg Delayed-Release capsule Take 40 mg by mouth once daily. 5 10/09/2018 Active Active Problems Problem Noted Date Diagnosed Date Sarcoidosis 07/01/2008 Overview: Diagnosis at [place]. Seeing neurology and pulmonary ENLARGEMENT OF LYMPH NODES-Mediastinum 8 Other malaise and fatigue 11/19/2007 Regular astigmatism 11/04/2006 Myopia 11/04/2006 BACK ACHE 10/14/2001 Immunizations Name Administration Dates Next Due Influenza, IIV3 (Age >=3 years) 06/26/2010,06/30 Pneumococcal Poly,23-Valent (Pneumovax) 06/30/20 08 Tdap 02/02/2010 Family History Medical History Relation Name Comments Hyperlipidemia Brother Diabetes Father Diabetes Maternal Grandmother Cancer Mother Cancer-breast Mother Wasn't the terrance andrea source Hyperlipidemia Mother Genetic Other , cataracts-fat her/glaucoma also pgm Diabetes Paternal Grandmother Cancer-ovarian No Family History Relation Name Status Comments Brother Alive Daughter 1 Alive Daughter 2 Alive Father Alive Maternal Grandfather Maternal Grandmother Mother (Age 60 yrs) cancer Other Paternal Grandfather Paternal Grandmother Social History Tobacco Use Types Packs/Day Years Used Date Smoking Tobacco: Never Smokeless Tobacco: Never Tobacco Cessation:Counseling Given: Yes Alcohol Use Standard Drinks/Week Comments Yes 0 (1 standard drink = 0.6 oz pur e alcohol) occ. 2 drinks per week PHQ-2 Answer Date Recorded PHQ-2 Score 0 12/16/2018 Sex and Gender Information Value Date Recorded Sex Assigned at Not on file Gender Identity Not on file Sexual Orientation Not on file Obstetrics History Para Term AB IAB SAB Ectopic Multiple Livin g Live Births 2 2 2 0 0 0 0 0 0 2 2 Date Outcome GA Total Labor Labor//3rd Weight Sex Delivery Anes PTL [place] A1 A5 Name Cl in 03/20 Term 40w 0d F Joie ng Jourdan lle 01/16 Term 40w 0d F Joie ng Diana ca Last Filed Vital Signs Vital Sign Reading Time Taken Comments Blood Pressure 120/88 12/16/2018 3:32 PM CDT Pulse 68 12/16/2018 3:32 PM CDT Temperature 36.8 ??C (98.3 ??F) 02/11/2017 5:23 PM CD T Respiratory Rate 18 08/23/2011 10:44 AM [employer] Oxygen Saturation 97% 10/23/2016 10:43 AM [employer] Inhaled Oxygen Concentration - - Weight 83.5 kg (184 lb) 12/16/2018 3:32 PM CDT Height 158.8 cm (5' 2.5) 12/16/2018 3:32 PM CDT Body Mass Index 33.12 12/16/2018 3:32 PM CDT Plan of Treatment Health Maintenance Due Date Last Done Comments HIV for age 15-65 12/13/1983 Hepatitis C screening for age 18-79 1986 Zoster (shingles) series for age 50+ (1 of 2) 2018 Mammogram for age 45-75 09/09/2019 09/09/19 19 (Completed outside of [facility]), 02/10/2016, 09/04/2013, Additional history exists BMI (ht and wt on same day) for age 18+ 12/17/2019 12/16/2018, 10/23/2016, 02/10/2016 Depression screening for age 12+ 12/17/2019 12/16/2018, 02/11/2017, 02/10/2016, Additional history exists Tetanus booster 02/03/2020 02/02/2010 Lipids for age 45-75 02/09/2021 02/10/2016, 07/11/20 04 COVID-19 vaccine series ( - 2022-24 season) 2023 Pap test for age 21-65 01/11/2024 1, 01/10/2021, 12/16/2018, Additional history exists Influenza for age 50-64 04/26/2024 06/26/2010, 06/30 Colonoscopy through age 75 05/11/2029 05/11/2019 Pneumococcal series for age 6-64 Aged Out 06/30/2008 No longer eligible based on patient's age to complete this topic Tdap Completed 02/02/2010 Procedures Procedure Name Priority Date/Time Associated Diagnosis Comments CCTV TECHNICIAN THIN PREP PAP SCREEN IMAGED Routine 01/10/2021 7:15 AM CDT SCAN-COLONOSCOPY 05/11/2019 9:30 AM CDT XR MAMMO BILAT SCREEN FFDM (IA) Routine 02/10/2016 10:24 AM CDT Visit for screening mammogram LIPID PANEL W REFLEX MEASURED LDL Routine 02/10/2016 9:48 AM CDT Lipid screening from Last 3 Months or Most Recently Relevant to Health Maintenance Results * CCTV TECHNICIAN THIN PREP PAP SCREEN IMAGED (01/10/2021 7:15 AM CDT) Case Report Gynecologic Cytology Report ? Case: [id number] ? Authorizing Provider: ??Megan Tony PA-C ?Collected: ? 01/10/2021 0715 ? Ordering Location: ? [facility] ?Received: ?01/12/2021 0815 ? First Screen: ?Baccam, Minie ? Rescreen: ?[place] ? Specimen: ?CCTV TECHNICIAN ThinPrep Vial Screening, Cervical/Vaginal ? 01/20/2021 1:11 PM CDT [facility] INTERPRETATION/ RESULT NEGATIVE FOR INTRAEPITHELIAL LESION OR MALIGNANCY (NIL) (none) 01/20/2021 1:11 PM CDT [facility] IMEN ADEQUACY Satisfactory for evaluation No endocervical component seen 01/20/2021 1:11 PM CDT [facility] HPV REQUEST HPV and PAP 01/20/2021 1:11 PM CDT [facility] Last Pap Date 01/20/2021 1:11 PM CDT [facility] Comment:Unknown Additional Information 01/20/2021 1:11 PM CDT [facility] Comment: Interpreted at [facility] [facility] Central Laboratory - [address], [place] [address] Automated Review Successful 01/20/2021 1:11 PM CDT [facility] Comment:Specimen processed s uccessfully by automated console attendant device, [employer] Imaging System, [employer] ANCILLARY TESTING CCTV TECHNICIAN HPV Ordered, Please see separate report 01/20/2021 1:11 PM CDT [facility] Note The pap test is a screening technique, not a diagnostic procedure. It is used primarily to screen for squamous cancers and precursor lesions. Published studies have shown that it is subject to both false negative and false positive results. The pap test should not be used as the sole means to diagnose or exclude pre-malignant and malignant lesions. 01/20/2021 1:11 PM CDT [facility] Other (Cervical/Vagina l) 01/10/2021 7:15 AM CDT 01/12/2021 8:15 AM CDT November [facility] [address] [place] [address], [place] * SCAN-COLONOSCOPY (05/11/2019 9:30 AM CDT) Narrative Procedure Note Reymundo Bates MD - 05/11/2019 8:41 AM CDT [facility] [address], [address], [place] [address] Patient Name: Sirena Mendez Gender: Female Exam Date: 05/11/2019 Visit Number: [id number] Age: 48 Years 4 Months Date of : 1970 Attending MD: Reymundo Bates MD Medical Record#: [id number] ----- Procedure: Colonoscopy Indications: Colorectal cancer screening Referring MD: Gail Aguilar [facility] Primary MD: MD Valle Primary Medications: Admitting Medications: 0.9% Normal Saline at TKO Intra Procedure Medications: Patient received monitored anesthesia care. Complications: No immediate complications Procedure: An examination of the heart and lungs was performed and found to be withinacceptable limits. The patient was therefore deemed a reasonablecandidate for endoscopy and monitored anesthesia care. The risks and benefits of the procedure were explained to the patient.After obtaining informed consent, the patient received monitoredanesthesia care and I passed the scope without difficulty via the rectum to the cecum. The appendiceal orificeand ic valve were identified. The scope was retroflexed during theexamination The quality of the prep was excellent (Miralax/Gatorade/2tablets Bisacodyl/Magnesium Citrate). This was a complete examination throughout the entire colon. Findings: Hemorrhoids. Internal and external hemorrhoids without bleeding. The entire colon was normal. Impression: Screening Colonoscopy Hemorrhoids without complication Plan Repeat colonoscopy in 10 years. If you have signs or symptoms of lower GI illness or a new diagnosis ofcolon cancer in an immediate family member, you should contact your GIprovider or your primary provider to discuss whether your next examshould be repeated sooner. We will attempt to contact you at appropriate intervals via U.S. mail. Wemay not be able to find you or contact you at that time, therefore youshould know that the responsibility for following our recommendation restswith you. If you don't hear from us at the time your procedure is due,please contact our office to schedule an appointment. If your contactinformation should change, please contact our office so that we can updateyour records. Electronically signed by: Reymundo Bates MD 05/11/2019 Medications: Medication Dose Sig Description PRN Status PRN Reason Comments omeprazole 40 mg capsule,delayed release 40 mg take 1 Capsule by ORALroute every day before a meal N taking as directed Allergies: Medication Name Ingredient Reaction Comment PENICILLIN Adverse reaction Vital Signs: Date Time Systolic Diastolic Height Weight BMI 05/11/2019 857 AM 116 81 62 in 188.99 34.60 Race: Ethnicity: Not or Preferred Language: Australian cc: No Primary cc: Gail Aguilar [facility] [phone] Reymundo Bates MD OTHER * XR MAMMO BILAT SCREEN FFDM (02/10/2016 10:24 AM CDT) Anatomical Region Laterality Modality BREASTS, Breast Left, Breast Right Bilateral Mammography Impressions 02/10/2016 3:32 PM CDT ??There is no radiographic evidence for malignancy. ??Recommend annual mammograms. A lay language report of this examination will be provided to the patient. MAMMOGRAM ASSESSMENT: ??ACR 1 Negative Narrative 02/10/2016 3:32 PM CDT XR MAMMO BILAT SCREEN FFDM [G0202.0] CLINICAL HISTORY: ??This is an asymptomatic 45 y.o. patient. INDICATION FOR EXAM: Mammogram Screening. TECHNIQUE: CC & MLO views were obtained. ??This digital study was evaluated with the assistance of Computer-Aided Detection. COMPARISON FILM: Yes 09/04/13 [facility] 05/30/11 [facility] FINDINGS: ??Mammographically, the breast tissue is heterogeneously dense, which could obscure detection of small masses. There are no dominant masses, suspicious micro calcifications or areas of architectural distortion. Gail Aguilar [facility] * LIPID PANEL W REFLEX MEASURED LDL (02/10/2016 9:48 AM CDT) CHOLESTEROL,TOTAL 178 100 - 199 mg/dL 02/10/2016 3:55 PM CDT [facility] TRIGLYCERIDES 72 <150 mg/dL 02/10/2016 3:55 PM CDT [facility] HDL CHOLESTEROL 52 >40 mg/dL 02/10/2016 3:55 PM CDT [facility] NON-HDL CHOLESTEROL 126 <145 mg/dl 02/10/2016 3:55 PM CDT [facility] CHOL/HDL RATIO 3.42 <4.50 02/10/2016 3:55 PM CDT [facility] LDL CHOLESTEROL 112 <=130 mg/dL 02/10/2016 3:55 PM CDT [facility] PATIENT STATUS FASTING 02/10/2016 3:55 PM CDT [facility] Blood specimen (specimen) BLOOD SPECIMEN / Unknown Venipuncture / Unknown 02/10/2016 9:48 AM CDT 02/10/2016 9:48 AM CDT Gail Aguilar [facility] [address] [place] [address], [facility] [address] [place] [address], from Last 3 Months or Most Recently Relevant to Health Maintenance Care Teams Technical Documentation Specialist Relationship Specialty Start Date End Date [facility] PCP - General 12/02/17 Cathy Bejarano MD Rheumatology 10/26/13
--- OUTSIDE RECORDS SUMMARY | 2024-01-10 18:14 | XMS_ITS | Clinical Summary ---
Author Name Unknown Organization [facility] Address [address] [place] [address] Care Team Providers Care Diamond Assorter Name Role Phone Elsewhere, Pcp Primary Care Provider Unavailabl e Source Comments Patient records contain information from all sites at [facility]. For routine questions regarding patient records, call [phone] during business hours, M-F 8:00 AM - 5:00 PM Central Time. Record requests for emergency care only can be directed to [phone] at any time.[facility] Allergies Active Allergy Reactions Criticality Noted Date Comments Amoxicillin Hives (Reselect Reaction) 10/22/2022 Amoxicillin-Pot Clavulanate Hives (Reselect Reaction) 10/22/2022 Penicillins Other (see comments) 11/04/2006 Shrimp Other (see comments) 03/01/2008 abdominal cramp, nausea, voimiting, diarrhea Medications Medication Sig Dispensed Refills Start Date End Date Status omeprazole (PriLOSEC) [address] capsule Take 40 mg by mouth every morning before breakfast. Active venlafaxine XR (EFFEXOR-XR) 150 mg 24 hr capsule Take 150 mg by mouth daily with breakfast. Active benzonatate (TESSALON PERLES) 100 mg capsule Take 1 capsule (100 mg total) by mouth 3 (three) times a day as needed for cough. 20 capsule 11/05/2022 Active hydrOXYzine (ATARAX) 25 mg tablet Take 1 tablet (25 mg total) by mouth at bedtime as needed for anxiety. 30 tablet 11/05/2022 Active Active Problems Problem Noted Date Diagnosed Date Hypoxia 10/28/2022 Overview: Added automatically from request for surgery [id number] Effusion Pleural 10/28/2022 Pneumonia 10/22/2022 Social History Tobacco Use Types Packs/Day Years Used Date Smoking Tobacco: Never Smokeless Tobacco: Never Tobacco Cessation:Counseling Given: Not Answered Alcohol Use Standard Drinks/Week Comments Not Currently 0 (1 standard drink = 0.6 oz pur e alcohol) Nutrition Answer Date Recorded Nutrition: EVOO Fat Source Unknown 10/22 Nutrition: Servings of Fruits/Vegetables per Day Not on file 10/22/2022 Dental Answer Date Recorded Dental: Regular Dentist Unknown 10/22/19 Sex and Gender Information Value Date Recorded Sex Assigned at Not on file Gender Identity Not on file Sexual Orientation Not on file Last Filed Vital Signs Vital Sign Reading Time Taken Comments Blood Pressure 132/80 11/05/2022 11:46 AM CDT Pulse 95 11/05/2022 11:46 AM CDT Temperature 36.5 ??C (97.7 ??F) 11/05/2022 1 1:46 AM CDT Respiratory Rate 20 11/05/2022 11:4 6 AM CDT Oxygen Saturation 97% 11/23/2022 3:07 PM CDT Inhaled Oxygen Concentration - - Weight 78.8 kg (173 lb 11.6 oz) 11/05/2022 6:08 AM CDT Height 158 cm (5' 2.21) 11/02/2022 1:33 PM BRICK TENDER Body Mass Index 31.57 11/02/2022 1:33 PM BRICK TENDER Plan of Treatment Health Maintenance Due Date Last Done Comments CT Colonography 1968 Cologuard 1970 Colonoscopy 1970 Colorectal Cancer Screening 1970 FIT 1970 Hepatitis C Screening 1970 Lipid (Cholesterol) Screening 1970 Mammogram 1968 Hepatitis B Vaccines (1 of 3 - 19+ 3-dose series) 12/13/1987 Zoster Vaccines (1 of 2) 2018 Depression Screening (Annual PHQ-2) 08/26/2023 Cervical Cancer Screening 01/11/2024 01/10/2021 Fasting Glucose for Diabetes Screening 11/05/2025 11/05/2022, 11/04/2022, 11/03/2022, Additional history exists DTaP,Tdap,and Td Vaccines (3 - Td or Tdap) 05/19/2033 05/19/2023, 02/02/2010 Pneumococcal vaccine (0-64 years) Aged Out 06/30/2008 No longer eligible based on patient's age to complete this topic HIV Screening Completed 10/28/2022 COVID-19 Vaccine Completed 07/23/2023, , 12/23/2020, Additional history exists Influenza Vaccine Completed 07/23/2023, , 06/08/2019, Additional history exists Procedures Procedure Name Priority Date/Time Associated Diagnosis Comments BASIC METABOLIC PANEL, S/P STAT 11/05/2022 8:02 AM CDT HIV-1/-2 AG AND AB SCREEN, PLASMA Routine 10/28/2022 4:38 PM BRICK TENDER from Last 3 Months or Most Recently Relevant to Health Maintenance Results * (ABNORMAL) Basic Metabolic Panel (11/05/2022 8:02 AM CDT) Potassium, P 3.6 3.6 - 5.2 mmol/L 11/05/2022 8:40 AM CDT [facility] Sodium, P 136 135 - 145 mmol/L 11/05/2022 8:40 AM CDT [facility] Chloride, P 102 98 - 107 mmol/L 11/05/2022 8:40 AM CDT [facility] Bicarbonate, P 26 22 - 29 mmol/L 11/05/2022 8:40 AM CDT [facility] Anion Gap, P 8 7 - 15 11/05/2022 8:40 AM CDT [facility] BUN (Blood Urea Nitrogen), P 3(L) 6 - 21 mg/dL 11/05/2022 8:52 AM CDT [facility] Creatinine 0.70 0.59 - 1.04 mg/dL 11/05/2022 8:40 AM CDT [facility] Estimated GFR (eGFR) >90 >=60 mL/min/BSA 11/05/2022 8:40 AM CDT [facility] Comment: Estimated GFR calculated using the 2020 CKD_EPI creatinine equation. Calcium, Total, P 9.1 8.6 - 10.0 mg/dL 11/05/2022 8:40 AM CDT [facility] Glucose, P 119 70 - 140 mg/dL 11/05/2022 8:40 AM CDT [facility] Blood (Blood, Venous) 11/05/2022 8:02 AM CDT 11/05/2022 8:17 AM CDT Chris Argueta M.D. LAB BLOOD ADD-ON Performing Organization Address City/[facility] Co de Phone Number [facility] [address] [place] [address], [facility] [[email or web address]] STMA [facility] [address] [place] [address] * HIV-1/-2 Ag and Ab Screen, Plasma (10/28/2022 4:38 PM BRICK TENDER) [facility] HIV-1/-2 Ag and Ab Screen, P Negative Negative 10/29/2022 12:25 PM BRICK TENDER [facility] Comment: Negative result does not rule out HIV infection. If exposure to HIV infection occurred <14 days ago, contact the laboratory to request addition of HIV-1 RNA detection / quantification test (HIVQN). Blood (Blood, Venous) 10/28/2022 4:38 PM BRICK TENDER 10/29/2022 11:01 AM BRICK TENDER Tien Boyd M.D., M.S. LAB MICROBIOLOG Y - BLOOD ORDERABLES Performing Organization Address City/[facility] Co de Phone Number [facility] [address] [place] [address] [facility] [address] [place] [address] from Last 3 Months or Most Recently Relevant to Health Maintenance Advance Directives For more information, please contact: [phone] * Full Code (Latest Code Status on File) Date Activated Date Inactivated Comments 10/28/2022 3:28 PM 11/05/2022 6:24 PM Question Answer Comments Full Code: Discussed * Full Code Date Activated Date Inactivated Comments 10/22/2022 10:44 PM 10/25/2022 3:14 PM Question Answer Comments Full Code: Discussed Care Teams Diamond Assorter Relationship Specialty Start Date End Date Elsewhere, Pcp PCP - General Internal Medicine 10/22/22
--- OUTSIDE RECORDS SUMMARY | 2024-01-10 18:14 | XMS_ITS | Continuity of Care Document ---
Author Name Unknown Organization [facility] Address [address] [place] [address] Phone Care Team Providers Care Logistics/Shipper Name Role Phone Artemio Galaviz MD Unavailable [...] No Longer Active Procedures Procedure Date Office/Outpatient Visit,[facility] 2017 Advance Directives Directive Yes / No Effective Date File Name No Information Encounters Encounter Description Practice Location Reason(s) For Visit Diagnoses Date Provider Providers Copied on Encounter [facility], [address], [place], [id number], [place] tel:[phone] [facility] No Information Anastacia Ulloa. [facility], [address], [address], [place], [id number], [place]. tel:[phone] [facility], [address], [place], [id number], [place] tel:[phone] [facility] No Information Igor Pittman. [facility], [address], [place], [address], [place]. tel:[phone] Office/Outpat ient Visit,New, Harvinder [facility], [address], [place], [place], [id number], [place] tel:[phone] [facility] Other spondylosis, cervical region Isauro Dwyer. [facility], [address], [place], [place], [id number], [place]. tel:[phone] Referring Provider: Marlo Carrasco , [facility] [address], [place], [address]. tel:[phone] Family History Family Member Type Diagnosis Age At Onset No Information Payers Payer name Insurance type Covered democrat ID Wil sorenson(s) [facility] [id number] [facility] [address] Out Of State [id number] Social History Type Description Quantity Date Captured [...]
--- OUTSIDE RECORDS SUMMARY | 2024-01-10 18:14 | XMS_ITS | Clinical Summary ---
Author Name Unknown Organization [facility] Address [address] [place], [place] [address] Phone [email or web address] Care Team Providers Care Commercial Loan Processor Name Role Phone Pcp, No Primary Care Provider Unavailabl e Social History Tobacco Use Types Packs/Day Years Used Date Smoking Tobacco: Never Assessed Sex and Gender Information Value Date Recorded Sex Assigned at Not on file Gender Identity Not on file Sexual Orientation Not on file Plan of Treatment Upcoming Encounters Date Type Department Care Team (Late st Contact Info) Description 01/16/2024 7:00 AM CDT Office Visit [facility] [place] [facility] [address] [place] [phone] Joe Day, [place] [address] [place] [address] Care Teams Commercial Loan Processor Relationship Specialty Start Date End Date NO PCP PCP - General 01/03/24
--- OUTSIDE RECORDS SUMMARY | 2024-01-10 18:14 | XMS_ITS | Referral Summary ---
Author Name Unknown Organization [facility] Address [address] [place] [address] Care Team Providers Care Evp Chief Exploration Officer Name Role Phone Elsewhere, Pcp Primary Care Provider Unavailabl e Source Comments Patient records contain information from all sites at [facility]. For routine questions regarding patient records, call [phone] during business hours, M-F 8:00 AM - 5:00 PM Central Time. Record requests for emergency care only can be directed to [phone] at any time.[facility] Allergies Active Allergy Reactions Criticality Noted Date [...] Overview: Added automatically from request for surgery [id number] Effusion Pleural 10/28/2022 Pneumonia 10/22/2022 Social History [...] 158 cm (5' 2.21) 11/02/2022 1:33 PM [facility] Body Mass Index 31.57 11/02/2022 1:33 PM [facility] Plan of Treatment Not on file Procedures Procedure Name Priority Date/Time Associated Diagnosis Comments BASIC METABOLIC PANEL, S/P STAT 11/05/2022 8:02 AM CDT HIV-1/-2 AG AND AB SCREEN, PLASMA Routine 10/28/2022 4:38 PM [facility] from Last 3 Months or Most Recently [...] CDT Chris Argueta M.D. LAB BLOOD ADD-ON [facility] [address] [place] [address], [facility] [address] [place] [address] * HIV-1/-2 Ag and Ab Screen, Plasma (10/28/2022 4:38 PM HH[facility]) [facility] HIV-1/-2 Ag and Ab Screen, P Negative Negative 10/29/2022 12:25 PM [facility] Comment: Negative result does not rule out HIV infection. If exposure to HIV infection occurred <14 days ago, contact the laboratory to request addition of HIV-1 RNA detection / quantification test (HIVQN). Blood (Blood, Venous) 10/28/2022 4:38 PM [facility] 10/29/2022 11:01 AM [facility] Tien Boyd M.D., M.S. LAB MICROBIOLOG Y - BLOOD ORDERABLES [facility] [address] [place] [address] [facility] [address] [place] [address] from Last 3 Months or Most Recently Relevant to Health Maintenance Advance Directives For more information, please contact: [phone] * Full Code (Latest Code Status on File) Date Activated Date Inactivated Comments 10/28/2022 3:28 PM 11/05/2022 6:24 PM Question Answer Comments Full Code: Discussed * Full Code Date Activated Date Inactivated Comments 10/22/2022 10:44 PM 10/25/2022 3:14 PM Question Answer Comments Full Code: Discussed Care Teams Evp Chief Exploration Officer Relationship Specialty Start Date End Date Elsewhere, Pcp PCP - General Internal Medicine 10/22/22
[2024-01-10 18:24] LABS: PCR FLU A Negative PCR FLU A (Negative); PCR FLU B Negative PCR FLU B (Negative); PCR RSV Negative PCR RSV (Negative); SARS PCR* Negative SARS-CoV-2 (Negative)
[2024-01-10] MEDS: 0.9 % SODIUM CHLORIDE 1000 ml 1,000 ML IV (18:33)
[2024-01-10] MEDS: KETOROLAC 15 MG/ML inj IVP (18:36)
--- NOTE | 2024-01-10 18:40 | XR_ITS ---
Patient: PERLITA TAVAREZ Facility:?[facility] Patient ID:?[id number] Site Patient ID:?[id number] Site :?1970 Study:?XRay-Chest 1V PORTABLE-01/10/2024 7:14:29 PM Ordering Physician:JAVON Final Report: INDICATION: Recent pneumonia. New fever. TECHNIQUE: Chest 1 view(s) COMPARISON: Chest radiograph dated 12/28/2023. FINDINGS: Cardiomediastinal silhouette and pulmonary vasculature are normal. No focal consolidation. Interval resolution of previously seen peripheral left lung opacity. No layering pleural effusion. No pneumothorax. No acute chest wall abnormality. IMPRESSION: No focal consolidation. Interval resolution of previously seen peripheral left lung opacity. Dictated by Harvinder Cade MD @ 01/10/2024 7:42:04 PM Signed by:?Harvinder Cade MD @01/10/2024 7:42:04 PM (Electronic Signature)
[2024-01-10 18:48] LABS: Basophils Absolute Auto 0.03 K/uL (0.00-0.30); Basophils Percent Auto 0.4 % (0.0-3.0); Eosinophils Absolute Auto 0.11 K/uL (0.00-0.50); Eosinophils Percent Auto 1.3 % (0.0-7.0); Hematocrit 41.6 % (33.0-51.0); Hemoglobin* 13.8 gm/dL (12.0-16.0); Lymphocytes Absolute Auto 2.11 K/uL (0.90-2.90); Lymphocytes Percent Auto 24.8 % (20-44); Mean Corpuscular HGB Conc 33 gm/dL (32-36); Mean Corpuscular Hemoglobin 29 pg (26-34); Mean Corpuscular Volume 88 fL (80-100); Monocytes Percent Auto 7.4 % (0.0-11.0); Neutrophils Absolute Auto 5.64 K/uL (1.7-7.0); Neutrophils Percent Auto 66.1 % (42.0-72.0); Platelet Count* 349 K/uL (140-440); RDW Coefficient of Variation % 11.9 % (11.5-15.5); Red Blood Count 4.74 m/uL (4.00-5.20); White Blood Count* 8.52 K/uL (4.50-11.00)
[2024-01-10 19:02] LABS: Slide Review Reflex No
[2024-01-10 19:08] LABS: Chloride* 106 mmol/L (96-114); Sodium* 139 mmol/L (135-149)
[2024-01-10 19:11] LABS: Anion Gap 6 mEq/L (7-15); Blood Urea Nitrogen* 12 mg/dL (7-30); Carbon Dioxide* 27 mmol/L (20-32); Creatinine* 0.7 mg/dL (0.5-1.5); Est. Creatinine Clearance* 71.82; Estimated Glomerular Filt Rate 102 ml/min
[2024-01-10 19:12] LABS: Glucose* 99 mg/dL (60-115)
[2024-01-10 19:14] LABS: C Reactive Protein* 0.9 mg/dL (0.5-1.0)
[2024-01-10 19:25] LABS: NT Pro B Type NatriureticPept* 27 pg/mL; Troponin I* < 0.01 ng/mL (0.01-0.04)
[2024-01-10 19:42] VITALS: PULSE 81; O2SAT 96
[2024-01-10 19:45] VITALS: PULSE 85; O2SAT 98
[2024-01-10] MEDS: ONDANSETRON 2 MG/ML inj 4 MG IVP (19:48)
[2024-01-10 20:00] VITALS: PULSE 80; O2SAT 96
[2024-01-10 20:01] VITALS: BP 137/85; PULSE 82; RESP 16; O2SAT 96
[2024-01-10] MEDS: GI COCKTAIL (VISC LIDO/ANTACID) 30 ML PO (20:10)
[2024-01-10 20:15] VITALS: PULSE 81; O2SAT 95
== END 2024-01-10 21:00 | disposition home or self-care (01) ==
PROVIDERS: Emergency Provider Family Medicine; PCP Family Medicine
DX: R51.9 Headache, unspecified (principal); R50.9 Fever, unspecified; K21.9 Gastro-esophageal reflux disease without esophagitis
CPT/HCPCS: 36415; 71045; 80048; 83880; 84484; 85025; 86140; 87631; 96374; 96375; 99284; A9270; J1885; J2405; J7030

== ENCOUNTER 2024-01-13 11:43 | Outpatient (CLI) | payer OTHER, SELFPAY ==
--- OUTSIDE RECORDS SUMMARY | 2024-01-13 11:48 | XMS_ITS | Clinical Summary ---
Author Name Unknown Organization [facility] Address [address] [place] [address] Care Team Providers Care Electrical Maintenance Supervisor Name Role Phone Elsewhere, Pcp Primary Care Provider Unavailabl e Source Comments Patient records contain information from all sites at [facility]. For routine questions regarding patient records, call [phone] during business hours, M-F 8:00 AM - 5:00 PM Central Time. Record requests for emergency care only can be directed to [phone] at any time.[facility] Allergies Active Allergy Reactions Criticality Noted Date [...] Overview: Added automatically from request for surgery [id number] Effusion Pleural 10/28/2022 Pneumonia 10/22/2022 Social History [...] 158 cm (5' 2.21) 11/02/2022 1:33 PM SENIOR ANDROID DEVELOPER Body Mass Index 31.57 11/02/2022 1:33 PM SENIOR ANDROID DEVELOPER Plan of Treatment Health Maintenance Due Date [...] AB SCREEN, PLASMA Routine 10/28/2022 4:38 PM SENIOR ANDROID DEVELOPER from Last 3 Months or Most Recently [...] M.D. LAB BLOOD ADD-ON Performing Organization Address City/[facility] Co de Phone Number [facility] [address] [place] [address], [facility] STMA [facility] [address] [place] [address] * HIV-1/-2 Ag and Ab Screen, Plasma (10/28/2022 4:38 PM SENIOR ANDROID DEVELOPER) [facility] HIV-1/-2 Ag and Ab Screen, P Negative Negative 10/29/2022 12:25 PM SENIOR ANDROID DEVELOPER [facility] Comment: Negative result does not rule out HIV infection. If exposure to HIV infection occurred <14 days ago, contact the laboratory to request addition of HIV-1 RNA detection / quantification test (HIVQN). Blood (Blood, Venous) 10/28/2022 4:38 PM SENIOR ANDROID DEVELOPER 10/29/2022 11:01 AM SENIOR ANDROID DEVELOPER Tien Boyd M.D., M.S. LAB MICROBIOLOG Y - BLOOD ORDERABLES Performing Organization Address City/[facility] Co de Phone Number [facility] [address] [place] [address] [facility] [address] [place] [address] from Last 3 Months or Most Recently Relevant to Health Maintenance Advance Directives For more information, please contact: [phone] * Full Code (Latest Code Status on File) Date Activated Date Inactivated Comments 10/28/2022 3:28 PM 11/05/2022 6:24 PM Question Answer Comments Full Code: Discussed * Full Code Date Activated Date Inactivated Comments 10/22/2022 10:44 PM 10/25/2022 3:14 PM Question Answer Comments Full Code: Discussed Care Teams Electrical Maintenance Supervisor Relationship Specialty Start Date End Date Elsewhere, Pcp PCP - General Internal Medicine 10/22/22
--- OUTSIDE RECORDS SUMMARY | 2024-01-13 11:48 | XMS_ITS | Clinical Summary ---
Author Name Unknown Organization [facility] Address [address] [place], [place] [address] Phone [email or web address] Care Team Providers Care Casing Crew Pusher Name Role Phone Pcp, No Primary Care [...] AM CDT Office Visit [facility] [place] [facility] [address] [place] [phone] Joe Day, [place] [address] [place] [address] Care Teams Casing Crew Pusher Relationship Specialty Start Date End Date NO PCP PCP - General 01/03/24
--- OUTSIDE RECORDS SUMMARY | 2024-01-13 11:48 | XMS_ITS ---
Author Name Unknown Organization [facility] Address [address] [place] [address] Care Team Providers Care Bank Examiner Name Role Phone Unavailable Unavailable Unavailable Surgery Details Not on file Complications Check Surgery Details section. Procedure Estimated Blood Loss Check Surgery Details section. Procedure Findings Check Surgery Details section. Procedure Specimens Taken Check Surgery Details section.
--- OUTSIDE RECORDS SUMMARY | 2024-01-13 11:48 | XMS_ITS | Clinical Summary ---
Author Name Unknown Organization [facility] Address [place], [place] [address] Care Team Providers Care Scheduler Conveyor Name Role Phone DarciCathy MD Unavailable [phone] [facility] Primary Care Provider Unavailabl e Allergies Active [...] Diagnosed Date Sarcoidosis 07/01/2008 Overview: Diagnosis at [place]. Seeing neurology and pulmonary ENLARGEMENT OF LYMPH [...] T Respiratory Rate 18 08/23/2011 10:44 AM TRANSPORTATION DEPARTMENT SUPERVISOR Oxygen Saturation 97% 10/23/2016 10:43 AM TRANSPORTATION DEPARTMENT SUPERVISOR Inhaled Oxygen Concentration - - Weight 83.5 [...] 45-75 09/09/2019 09/09/19 19 (Completed outside of [facility]), 02/10/2016, 09/04/2013, Additional history exists BMI (ht [...] Procedure Name Priority Date/Time Associated Diagnosis Comments GOVERNMENT SERVICE EXECUTIVE THIN PREP PAP SCREEN IMAGED Routine 01/10/2021 7:15 AM CDT SCAN-COLONOSCOPY 05/11/2019 9:30 AM CDT XR MAMMO BILAT SCREEN FFDM (IA) Routine 02/10/2016 10:24 AM CDT Visit for screening mammogram LIPID PANEL W REFLEX MEASURED LDL Routine 02/10/2016 9:48 AM CDT Lipid screening from Last 3 Months or Most Recently Relevant to Health Maintenance Results * GOVERNMENT SERVICE EXECUTIVE THIN PREP PAP SCREEN IMAGED (01/10/2021 7:15 AM CDT) Case Report Gynecologic Cytology Report ? Case: [id number] ? Authorizing Provider: ??Megan Tony PA-C ?Collected: ? 01/10/2021 0715 ? Ordering Location: ? [facility] ?Received: ?01/12/2021 0815 ? First Screen: ?Baccam, Minie ? Rescreen: ?[place] ? Specimen: ?GOVERNMENT SERVICE EXECUTIVE ThinPrep Vial Screening, Cervical/Vaginal ? 01/20/2021 1:11 PM CDT [facility] INTERPRETATION/ RESULT NEGATIVE FOR INTRAEPITHELIAL LESION OR MALIGNANCY (NIL) (none) 01/20/2021 1:11 PM CDT [facility] IMEN ADEQUACY Satisfactory for evaluation No endocervical component seen 01/20/2021 1:11 PM CDT [facility] HPV REQUEST HPV and PAP 01/20/2021 1:11 PM CDT [facility] Last Pap Date 01/20/2021 1:11 PM CDT [facility] Comment:Unknown Additional Information 01/20/2021 1:11 PM CDT [facility] Comment: Interpreted at [facility] [employer] [facility] - [address], [place] [address] Automated Review Successful 01/20/2021 1:11 PM CDT [facility] Comment:Specimen processed s uccessfully by automated transportation services representative device, [employer] System, [employer] ANCILLARY TESTING GOVERNMENT SERVICE EXECUTIVE HPV Ordered, Please see separate report 01/20/2021 1:11 PM CDT [facility] Note The pap test is [...] and malignant lesions. 01/20/2021 1:11 PM CDT [facility] Other (Cervical/Vagina l) 01/10/2021 7:15 AM CDT 01/12/2021 8:15 AM CDT November [facility] [address] [place] [address], [place] * SCAN-COLONOSCOPY (05/11/2019 9:30 AM CDT) Narrative Procedure Note Reymundo Bates MD - 05/11/2019 8:41 AM CDT [facility] [address], [address], [place] [address] Patient Name: Sirena Mendez Gender: Female Exam Date: 05/11/2019 Visit Number: [id number] Age: 48 Years 4 Months Date of : 1970 Attending MD: Reymundo Bates MD Medical Record#: [id number] ----- Procedure: Colonoscopy Indications: Colorectal cancer screening Referring MD: Gail Aguilar [facility] Primary MD: MD Valle Primary Medications: Admitting [...] 34.60 Race: Ethnicity: Not or Preferred Language: Canadian cc: No Primary cc: Gail Aguilar [facility] [phone] Reymundo Bates MD OTHER * XR MAMMO [...] of Computer-Aided Detection. COMPARISON FILM: Yes 09/04/13 [facility] 05/30/11 [facility] FINDINGS: ??Mammographically, the breast tissue is heterogeneously dense, which could obscure detection of small masses. There are no dominant masses, suspicious micro calcifications or areas of architectural distortion. Gail Aguilar [facility] * LIPID PANEL W REFLEX MEASURED LDL (02/10/2016 9:48 AM CDT) CHOLESTEROL,TOTAL 178 100 - 199 mg/dL 02/10/2016 3:55 PM CDT [facility] TRIGLYCERIDES 72 <150 mg/dL 02/10/2016 3:55 PM CDT [facility] HDL CHOLESTEROL 52 >40 mg/dL 02/10/2016 3:55 PM CDT [facility] NON-HDL CHOLESTEROL 126 <145 mg/dl 02/10/2016 3:55 PM CDT [facility] CHOL/HDL RATIO 3.42 <4.50 02/10/2016 3:55 PM CDT [facility] LDL CHOLESTEROL 112 <=130 mg/dL 02/10/2016 3:55 PM CDT [facility] PATIENT STATUS FASTING 02/10/2016 3:55 PM CDT [facility] Blood specimen (specimen) BLOOD SPECIMEN / Unknown Venipuncture / Unknown 02/10/2016 9:48 AM CDT 02/10/2016 9:48 AM CDT Gail Aguilar COURIER CHEMISTRY [facility] [address] [place] [address], [facility] [address] [place] [address], from Last 3 Months or Most Recently Relevant to Health Maintenance Care Teams Scheduler Conveyor Relationship Specialty Start Date End Date [facility] PCP - General 12/02/17 Cathy Bejarano MD Rheumatology 10/26/13
--- OUTSIDE RECORDS SUMMARY | 2024-01-13 11:48 | XMS_ITS | Referral Summary ---
Author Name Unknown Organization [facility] Address [address] [place] [address] Care Team Providers Care Wool Carder Name Role Phone Elsewhere, Pcp Primary Care Provider Unavailabl e Source Comments Patient records contain information from all sites at [facility]. For routine questions regarding patient records, call [phone] during business hours, M-F 8:00 AM - 5:00 PM Central Time. Record requests for emergency care only can be directed to [phone] at any time.[facility] Allergies Active Allergy Reactions Criticality Noted Date [...] Overview: Added automatically from request for surgery [id number] Effusion Pleural 10/28/2022 Pneumonia 10/22/2022 Social History [...] 158 cm (5' 2.21) 11/02/2022 1:33 PM VENEER PRESS OPERATOR Body Mass Index 31.57 11/02/2022 1:33 PM VENEER PRESS OPERATOR Plan of Treatment Not on file Procedures Procedure Name Priority Date/Time Associated Diagnosis Comments BASIC METABOLIC PANEL, S/P STAT 11/05/2022 8:02 AM CDT HIV-1/-2 AG AND AB SCREEN, PLASMA Routine 10/28/2022 4:38 PM VENEER PRESS OPERATOR from Last 3 Months or Most Recently [...] CDT Chris Argueta M.D. LAB BLOOD ADD-ON [facility] [address] [place] [address], [facility] [address] [place] [address] * HIV-1/-2 Ag and Ab Screen, Plasma (10/28/2022 4:38 PM VENEER PRESS OPERATOR) [facility] HIV-1/-2 Ag and Ab Screen, P Negative Negative 10/29/2022 12:25 PM VENEER PRESS OPERATOR [facility] Comment: Negative result does not rule out HIV infection. If exposure to HIV infection occurred <14 days ago, contact the laboratory to request addition of HIV-1 RNA detection / quantification test (HIVQN). Blood (Blood, Venous) 10/28/2022 4:38 PM VENEER PRESS OPERATOR 10/29/2022 11:01 AM VENEER PRESS OPERATOR Tien Boyd M.D., M.S. LAB MICROBIOLOG Y - BLOOD ORDERABLES [facility] [address] [place] [address] [facility] [address] [place] [address] from Last 3 Months or Most Recently Relevant to Health Maintenance Advance Directives For more information, please contact: [phone] * Full Code (Latest Code Status on File) Date Activated Date Inactivated Comments 10/28/2022 3:28 PM 11/05/2022 6:24 PM Question Answer Comments Full Code: Discussed * Full Code Date Activated Date Inactivated Comments 10/22/2022 10:44 PM 10/25/2022 3:14 PM Question Answer Comments Full Code: Discussed Care Teams Wool Carder Relationship Specialty Start Date End Date Elsewhere, Pcp PCP - General Internal Medicine 10/22/22
--- OUTSIDE RECORDS SUMMARY | 2024-01-13 11:48 | XMS_ITS | Continuity of Care Document ---
Author Name Unknown Organization [facility] Address [address] [place] [address] Phone Care Team Providers Care Hand Cooper Helper Name Role Phone Artemio Galaviz MD Unavailable [...] No Longer Active Procedures Procedure Date Office/Outpatient Visit,[facility] 2017 Advance Directives Directive Yes / No Effective Date File Name No Information Encounters Encounter Description Practice Location Reason(s) For Visit Diagnoses Date Provider Providers Copied on Encounter [facility], [address], [place], [id number], [place] tel:[phone] [facility] No Information Anastacia Ulloa. [facility], [address], [address], [place], [id number], [place]. tel:[phone] [facility], [address], [place], [id number], [place] tel:[phone] [facility] No Information Igor Pittman. [facility], [address], [place], [address], [place]. tel:[phone] Office/Outpat ient Visit,New, Harvinder [facility], [address], [place], [place], [id number], [place] tel:[phone] [facility] Other spondylosis, cervical region Isauro Dwyer. [facility], [address], [place], [place], [id number], [place]. tel:[phone] Referring Provider: Marlo Carrasco , [facility] [place] [address], [place], [address]. tel:[phone] Family History Family Member Type Diagnosis Age At Onset No Information Payers Payer name Insurance type Covered libertarian ID Wil sorenson(s) [facility], [facility] [id number] [facility] [id number] Out Of State [id number] Social History Type Description Quantity Date Captured [...]
== END 2024-01-13 11:44 | disposition home or self-care (01) ==
PROVIDERS: PCP Family Medicine; Visit Provider Family Medicine
DX: R50.9 Fever, unspecified (principal); R53.83 Other fatigue; Z13.228 Encounter for screening for other metabolic disorders
CPT/HCPCS: 80053; 83880; 86140

== ENCOUNTER 2024-01-15 14:59 | Outpatient (CLI) | payer OTHER, SELFPAY ==
--- NOTE | 2024-01-15 15:00 | CT_ITS ---
Patient: PERLITA TAVAREZ Facility:?[facility] Patient ID:?[id number] Site Patient ID:?[id number]. Site :?1970 Study:?CT-Chest Angio PE 95CC ISOVUE 370-01/15/2024 3:45:24 PM Ordering Physician:WOODY Final Report: INDICATION: .SOB, HX OF RECENT PNEUMONIA, SARCOIDOSIS TECHNIQUE: CT chest PE was acquired with 95 cc Isovue 370 IV contrast. COMPARISON: March 2023 FINDINGS: Pulmonary Arteries: Motion degrades evaluation of the distal segmental and subsegmental pulmonary arteries. No discrete large central or proximal segmental pulmonary embolus. No pulmonary hypertension or right ventricular strain. Heart and Mediastinum: The visualized portions of the thyroid are normal. No axillary or supraclavicular lymphadenopathy. No mediastinal, hilar or retrocrural lymphadenopathy. Normal heart size. Normal caliber aorta. Stable prominent but nonenlarged mediastinal lymph nodes. Lungs and Airways: Motion. Subsegmental atelectasis. Lingular centrilobular nodular ground-glass airspace opacities likely cellular bronchiolitis of infectious/aspiratory etiology. Lingular linear airspace opacities likely linear fibrosis no mass. No endoluminal lesion. Pleura: The pleural spaces are normal. Abdomen: The visualized upper abdominal organs are unremarkable. Bones and soft tissues: The skeletal structures and soft tissues of the chest wall are unremarkable. IMPRESSION: 1. Motion degrades evaluation of the distal segmental and subsegmental pulmonary arteries. No discrete large central or proximal segmental pulmonary embolus. 2. No intrathoracic mass. 3. Lingular centrilobular nodular ground-glass airspace opacities likely cellular bronchiolitis of infectious/aspiratory etiology. Consider [address] to document resolution and assess underlying malignant potential. Please note that all CT scans at this facility use dose modulation, iterative reconstruction, and/or weight-based dosing when appropriate to reduce radiation dose to as low as reasonably achievable. Dictated by Chris Porter MD @ 01/16/2024 12:14:34 PM Signed by:?Chris Porter MD @01/16/2024 12:14:34 PM (Electronic Signature)
--- OUTSIDE RECORDS SUMMARY | 2024-01-15 15:07 | XMS_ITS ---
Author Organization [facility] Address [address] [place] [address] Care Team Providers Care Criminal Justice Department Chair Name Role Phone Unavailable Unavailable Unavailable Surgery Details Not on file Complications Check Surgery Details section. Procedure Estimated Blood Loss Check Surgery Details section. Procedure Findings Check Surgery Details section. Procedure Specimens Taken Check Surgery Details section.
--- OUTSIDE RECORDS SUMMARY | 2024-01-15 15:07 | XMS_ITS | Clinical Summary ---
Author Organization [facility] Address [place], [place] [address] Care Team Providers Care Call Center Agent Name Role Phone solCathy MD Unavailable [phone] [facility] Primary Care Provider Unavailabl e Allergies Active [...] Diagnosed Date Sarcoidosis 07/01/2008 Overview: Diagnosis at [place]. Seeing neurology and pulmonary ENLARGEMENT OF LYMPH [...] 2 2 Date Outcome GA Total Labor Labor/2nd/3rd Weight Sex Delivery Anes PTL [place] A1 [...] T Respiratory Rate 18 08/23/2011 10:44 AM DESK PENS ASSEMBLER Oxygen Saturation 97% 10/23/2016 10:43 AM DESK PENS ASSEMBLER Inhaled Oxygen Concentration - - Weight 83.5 [...] 45-75 09/09/2019 09/09/19 19 (Completed outside of [facility]), 02/10/2016, 09/04/2013, Additional history exists BMI (ht and wt on same day) for age 18+ 12/17/2019 12/16/2018, 10/23/2016, 02/10/2016 Depression screening for age 12+ 12/17/2019 12/16/2018, 02/11/2017, 02/10/2016, Additional history exists Tetanus booster 02/03/2020 02/02/2010 Lipids for age 45-75 02/09/2021 02/10/2016, 07/11/20 04 COVID-19 vaccine series (2022-24 season) 2023 Pap test for age 21-65 01/11/2024 , 01/10/2021, 12/16/2018, Additional history exists Influenza for age 50-64 04/26/2024 06/26/2010, 06/30 Colonoscopy through age 75 05/11/2029 05/11/2019 Pneumococcal series for age 6-64 Aged Out 06/30/2008 No longer eligible based on patient's age to complete this topic Tdap Completed 02/02/2010 Procedures Procedure Name Priority Date/Time Associated Diagnosis Comments DONOR RELATIONS MANAGER THIN PREP PAP SCREEN IMAGED Routine 01/10/2021 7:15 AM CDT SCAN-COLONOSCOPY 05/11/2019 9:30 AM CDT XR MAMMO BILAT SCREEN FFDM (IA) Routine 02/10/2016 10:24 AM CDT Visit for screening mammogram LIPID PANEL W REFLEX MEASURED LDL Routine 02/10/2016 9:48 AM CDT Lipid screening from Last 3 Months or Most Recently Relevant to Health Maintenance Results * DONOR RELATIONS MANAGER THIN PREP PAP SCREEN IMAGED (01/10/2021 7:15 AM CDT) Case Report Gynecologic Cytology Report ? Case: [id number] ? Authorizing Provider: ??Megan Tony PA-C ?Collected: ? 01/10/2021 0715 ? Ordering Location: ? [facility] ?Received: ?01/12/2021 0815 ? First Screen: ?Baccam, Minie ? Rescreen: ?[place] ? Specimen: ?DONOR RELATIONS MANAGER ThinPrep Vial Screening, Cervical/Vaginal ? 01/20/2021 1:11 PM CDT [facility] INTERPRETATION/ RESULT NEGATIVE FOR INTRAEPITHELIAL LESION OR MALIGNANCY (NIL) (none) 01/20/2021 1:11 PM CDT [facility] IMEN ADEQUACY Satisfactory for evaluation No endocervical component seen 01/20/2021 1:11 PM CDT [facility] HPV REQUEST HPV and PAP 01/20/2021 1:11 PM CDT [facility] Last Pap Date 01/20/2021 1:11 PM CDT [facility] Comment:Unknown Additional Information 01/20/2021 1:11 PM CDT [facility] Comment: Interpreted at [facility] [employer] [facility] Central Laboratory - [address], [place] [address] Automated Review Successful 01/20/2021 1:11 PM CDT [facility] Comment:Specimen processed s uccessfully by automated local government legislator device, [employer] System, [employer] ANCILLARY TESTING DONOR RELATIONS MANAGER HPV Ordered, Please see separate report 01/20/2021 1:11 PM CDT [facility] Note The pap test is [...] and malignant lesions. 01/20/2021 1:11 PM CDT [facility] Other (Cervical/Vagina l) 01/10/2021 7:15 AM CDT 01/12/2021 8:15 AM CDT November [facility] [address] [place] [address], [place] * SCAN-COLONOSCOPY (05/11/2019 9:30 AM CDT) Narrative Procedure Note Reymundo Bates MD - 05/11/2019 8:41 AM CDT [facility] [address], [address], [place] [address] Patient Name: Sirena Mendez Gender: Female Exam Date: 05/11/2019 Visit Number: [id number] Age: 48 Years 4 Months Date of : 1970 Attending MD: Reymundo Bates MD Medical Record#: [id number] ----- Procedure: Colonoscopy Indications: Colorectal cancer screening Referring MD: Gail Aguilar [facility] Primary MD: MD Valle Primary Medications: Admitting Medications: 0.9% Normal Saline at [facility] Intra Procedure Medications: Patient received monitored anesthesia [...] 34.60 Race: Ethnicity: Not or Preferred Language: Icelandic cc: No Primary cc: Gail Aguilar [facility] [phone] Reymundo Bates MD OTHER * XR MAMMO [...] of Computer-Aided Detection. COMPARISON FILM: Yes 09/04/13 [facility] 05/30/11 [facility] FINDINGS: ??Mammographically, the breast tissue is heterogeneously dense, which could obscure detection of small masses. There are no dominant masses, suspicious micro calcifications or areas of architectural distortion. Gail Aguilar FUEL DOCK ATTENDANT MAMMO * LIPID PANEL W REFLEX MEASURED LDL (02/10/2016 9:48 AM CDT) CHOLESTEROL,TOTAL 178 100 - 199 mg/dL 02/10/2016 3:55 PM CDT [facility] TRIGLYCERIDES 72 <150 mg/dL 02/10/2016 3:55 PM CDT [facility] HDL CHOLESTEROL 52 >40 mg/dL 02/10/2016 3:55 PM CDT [facility] TR[facility] LAB[facility]ATORY NON-HDL CHOLESTEROL 126 <145 mg/dl 02/10/2016 3:55 PM CDT [facility] CHOL/HDL RATIO 3.42 <4.50 02/10/2016 3:55 PM CDT [facility] TR[facility] LAB[facility]ATORY LDL CHOLESTEROL 112 <=130 mg/dL 02/10/2016 3:55 PM CDT [facility] PATIENT STATUS FASTING 02/10/2016 3:55 PM CDT [facility] Blood specimen (specimen) BLOOD SPECIMEN / Unknown Venipuncture / Unknown 02/10/2016 9:48 AM CDT 02/10/2016 9:48 AM CDT Gail Aguilar FUEL DOCK ATTENDANT CHEMISTRY [facility] [address] [place] [address], [facility] [address] [place] [address], from Last 3 Months or Most Recently Relevant to Health Maintenance Care Teams Call Center Agent Relationship Specialty Start Date End Date [facility] PCP - General 12/02/17 Cathy Bejarano MD Rheumatology 10/26/13
--- OUTSIDE RECORDS SUMMARY | 2024-01-15 15:07 | XMS_ITS | Clinical Summary ---
Author Organization [facility] Address [address] [place], [place] [address] Phone [email or web address] Care Team Providers Care Shellfish Grower Name Role Phone Pcp, No Primary Care [...] AM CDT Office Visit [employer] [facility] [address] [place] [phone] Joe Day, [place] [address] [place] [address] Care Teams Shellfish Grower Relationship Specialty Start Date End Date NO PCP PCP - General 01/03/24
--- OUTSIDE RECORDS SUMMARY | 2024-01-15 15:07 | XMS_ITS | Referral Summary ---
Author Organization [facility] Address [address] [place] [address] Care Team Providers Care Manager Corporate Marketing Name Role Phone Elsewhere, Pcp Primary Care Provider Unavailabl e Source Comments Patient records contain information from all sites at [facility]. For routine questions regarding patient records, call [phone] during business hours, M-F 8:00 AM - 5:00 PM Central Time. Record requests for emergency care only can be directed to [phone] at any time.[facility] Allergies Active Allergy Reactions Criticality Noted Date [...] Overview: Added automatically from request for surgery [id number] Effusion Pleural 10/28/2022 Pneumonia 10/22/2022 Social History [...] 158 cm (5' 2.21) 11/02/2022 1:33 PM ELEVATOR PILOT Body Mass Index 31.57 11/02/2022 1:33 PM ELEVATOR PILOT Plan of Treatment Not on file Procedures Procedure Name Priority Date/Time Associated Diagnosis Comments BASIC METABOLIC PANEL, S/P STAT 11/05/2022 8:02 AM CDT HIV-1/-2 AG AND AB SCREEN, PLASMA Routine 10/28/2022 4:38 PM ELEVATOR PILOT from Last 3 Months or Most Recently [...] CDT Chris Argueta M.D. LAB BLOOD ADD-ON [facility] [address] [place] [address], [facility] [address] [place] [address] * HIV-1/-2 Ag and Ab Screen, Plasma (10/28/2022 4:38 PM ELEVATOR PILOT) [facility] HIV-1/-2 Ag and Ab Screen, P Negative Negative 10/29/2022 12:25 PM ELEVATOR PILOT [facility] Comment: Negative result does not rule out HIV infection. If exposure to HIV infection occurred <14 days ago, contact the laboratory to request addition of HIV-1 RNA detection / quantification test (HIVQN). Blood (Blood, Venous) 10/28/2022 4:38 PM ELEVATOR PILOT 10/29/2022 11:01 AM ELEVATOR PILOT Tien Boyd M.D., M.S. LAB MICROBIOLOG Y - BLOOD ORDERABLES [facility] [address] [place] [address] [facility] [address] [place] [address] from Last 3 Months or Most Recently Relevant to Health Maintenance Advance Directives For more information, please contact: [phone] * Full Code (Latest Code Status on File) Date Activated Date Inactivated Comments 10/28/2022 3:28 PM 11/05/2022 6:24 PM Question Answer Comments Full Code: Discussed * Full Code Date Activated Date Inactivated Comments 10/22/2022 10:44 PM 10/25/2022 3:14 PM Question Answer Comments Full Code: Discussed Care Teams Manager Corporate Marketing Relationship Specialty Start Date End Date Elsewhere, Pcp PCP - General Internal Medicine 10/22/22
--- OUTSIDE RECORDS SUMMARY | 2024-01-15 15:07 | XMS_ITS | Clinical Summary ---
Author Organization [facility] Address [address] [place] [address] Care Team Providers Care Dock Or Pier Laborer Name Role Phone Elsewhere, Pcp Primary Care Provider Unavailabl e Source Comments Patient records contain information from all sites at [facility]. For routine questions regarding patient records, call [phone] during business hours, M-F 8:00 AM - 5:00 PM Central Time. Record requests for emergency care only can be directed to [phone] at any time.[facility] Allergies Active Allergy Reactions Criticality Noted [...] Overview: Added automatically from request for surgery [id number] Effusion Pleural 10/28/2022 Pneumonia 10/22/2022 Social History [...] 158 cm (5' 2.21) 11/02/2022 1:33 PM DIAPER MACHINE TENDER Body Mass Index 31.57 11/02/2022 1:33 PM DIAPER MACHINE TENDER Plan of Treatment Health Maintenance Due [...] AB SCREEN, PLASMA Routine 10/28/2022 4:38 PM DIAPER MACHINE TENDER from Last 3 Months or Most [...] M.D. LAB BLOOD ADD-ON Performing Organization Address City/[facility]/ZIP Co de Phone Number [facility] [address] [place] [address], [facility] [address] [place] [address] * HIV-1/-2 Ag and Ab Screen, Plasma (10/28/2022 4:38 PM DIAPER MACHINE TENDER) [facility] HIV-1/-2 Ag and Ab Screen, P Negative Negative 10/29/2022 12:25 PM DIAPER MACHINE TENDER [facility] Comment: Negative result does not rule out HIV infection. If exposure to HIV infection occurred <14 days ago, contact the laboratory to request addition of HIV-1 RNA detection / quantification test (HIVQN). Blood (Blood, Venous) 10/28/2022 4:38 PM DIAPER MACHINE TENDER 10/29/2022 11:01 AM DIAPER MACHINE TENDER Tien Boyd M.D., M.S. LAB MICROBIOLOG Y - BLOOD ORDERABLES Performing Organization Address City/[facility] Co de Phone Number [facility] [address] [place] [address] [facility] [address] [place] [address] from Last 3 Months or Most Recently Relevant to Health Maintenance Advance Directives For more information, please contact: [phone] * Full Code (Latest Code Status on File) Date Activated Date Inactivated Comments 10/28/2022 3:28 PM 11/05/2022 6:24 PM Question Answer Comments Full Code: Discussed * Full Code Date Activated Date Inactivated Comments 10/22/2022 10:44 PM 10/25/2022 3:14 PM Question Answer Comments Full Code: Discussed Care Teams Dock Or Pier Laborer Relationship Specialty Start Date End Date Elsewhere, Pcp PCP - General Internal Medicine 10/22/22
--- OUTSIDE RECORDS SUMMARY | 2024-01-15 15:07 | XMS_ITS | Continuity of Care Document ---
Author Organization [facility] Address [address] [place] [address] Phone Care Team Providers Care Fine Patcher Name Role Phone Artemio Galaviz MD Unavailable [...] No Longer Active Procedures Procedure Date Office/Outpatient Visit,[facility] 2017 Advance Directives Directive Yes / No Effective Date File Name No Information Encounters Encounter Description Practice Location Reason(s) For Visit Diagnoses Date Provider Providers Copied on Encounter [facility], [address], [place], [id number], [place] tel:[phone] [facility] No Information Ansatacia Ulloa. [facility], [address], [address], [place], [id number], [place]. tel:[phone] [facility], [address], [place], [id number], [place] tel:[phone] [facility] No Information Igor Pittman. [facility], [address], [place], [address], [place]. tel:[phone] Office/Outpat ient Visit,New, Harvinder [facility], [address], [place], [place], [id number], [place] tel:[phone] [facility] Other spondylosis, cervical region Isauro Dwyer. [facility], [address], [place], [place], [id number], [place]. tel:[phone] Referring Provider: Marlo Carrasco , [facility] [address], [place], [address]. tel:[phone] Family History Family Member Type Diagnosis Age At Onset No Information Payers Payer name Insurance type Covered libertarian ID Wil sorenson(s) [facility] [id number] [facility] [id number] Out Of State [id number] Social History Type Description Quantity Date Captured [...]
== END 2024-01-15 15:00 | disposition home or self-care (01) ==
PROVIDERS: PCP Family Medicine; Visit Provider Family Medicine
DX: D86.9 Sarcoidosis, unspecified (principal); R53.83 Other fatigue; R50.9 Fever, unspecified; Z87.01 Personal history of pneumonia (recurrent)
CPT/HCPCS: 71275; Q9967

== ENCOUNTER 2024-04-20 15:30 | Outpatient (RCR) | payer OTHER, SELFPAY | END 2024-07-06 09:55 | disposition home or self-care (01) | PROVIDERS: PCP Family Medicine; Visit Provider Registered Nurse | DX: N81.9 Female genital prolapse, unspecified (principal); N39.3 Stress incontinence (female) (male); Z51.89 Encounter for other specified aftercare | CPT/HCPCS: 97110; 97112; 97161; 97535 ==

== ENCOUNTER 2024-11-19 15:59 | Outpatient (CLI) | payer OTHER, SELFPAY ==
--- NOTE | 2024-11-19 16:00 | CRLHL7_ITS ---
For Patients: As a result of the Century Cures Act, medical imaging exams and procedure reports are released immediately into your electronic medical record. You may view this report before your referring provider. If you have questions, please contact your health care provider. Indication: SARCOIDOSIS Technique: Noncontrast CT chest Please note that all CT scans at this facility use dose modulation, iterative reconstruction, and/or weight-based dosing when appropriate to reduce radiation dose to as low as reasonably achievable. Comparison: 01/15/2024 Findings: Patchy areas of linear subsegmental scarring noted bilaterally. No suspicious nodule. No infiltrate or edema. No effusion. A few scattered sub cm mediastinal lymph nodes are unchanged. Unremarkable breast tissue. Discogenic spurring throughout the thoracic spine. Incidental splenule. Gallbladder nondistended. Impression: Patchy areas of scarring are present bilaterally. Similar sub cm mediastinal lymph nodes. Clearing of previously noted ill-defined nodules within the lingula, likely representing an infectious process. Please note that all CT scans at this facility use dose modulation, iterative reconstruction, and/or weight-based dosing when appropriate to reduce radiation dose to as low as reasonably achievable. Dictated by Chris Saha MD @ 11/23/2024 10:15:29 AM (Electronically Signed)
== END 2024-11-19 16:00 | disposition home or self-care (01) ==
LOC: CT 16:00
PROVIDERS: PCP Family Medicine; Visit Provider Family Medicine
DX: D86.9 Sarcoidosis, unspecified (principal); R78.81 Bacteremia; B95.3 Streptococcus pneumoniae as the cause of diseases classified elsewhere
CPT/HCPCS: 71250

== ENCOUNTER 2025-06-14 15:23 | Outpatient (CLI) | payer OTHER, SELFPAY | END 2025-06-14 15:24 | disposition home or self-care (01) | PROVIDERS: PCP Family Medicine; Visit Provider Family Medicine | DX: Z00.00 Encounter for general adult medical examination without abnormal findings (principal); R53.83 Other fatigue; Z11.59 Encounter for screening for other viral diseases | CPT/HCPCS: 80053; 80061; 82306; 84443; 86803 ==